=== PATIENT | male | born 1965 | race Caucasian/White ===

== ENCOUNTER 2021-12-19 15:49 | Emergency (ER) | payer SELFPAY ==
[2021-12-19 16:08] VITALS: BP 117/76; PULSE 136; RESP 22; TEMP 36.6; O2SAT 96; BMI 27.4
--- NOTE | 2021-12-19 16:10 | ED.GENADULT ---
HPI - General Adult General Time Seen by Provider: 16:10 <Francisco Enriquez MD - Last Filed: 12/26/21 14:01> Date Seen: 12/19/21 <Francisco Enriquez MD - Last Filed: 12/26/21 14:01> Chief complaint: Weakness <Francisco Enriquez MD - Last Filed: 12/26/21 14:01> Stated complaint: Sore on LT leg and not eating <Francisco Enriquez MD - Last Filed: 12/26/21 14:01> Time Seen by Provider: 12/19/21 16:09 <Francisco Enriquez MD - Last Filed: 12/26/21 14:01> Source: patient <Francisco Enriquez MD - Last Filed: 12/26/21 14:01> History of Present Illness HPI narrative: Flavio is a 56 year old male past medical history includes diabetes mellitus type 2, major depression, CVA with residual left hemiparesis presents emergency department via private car with weakness. Patient states that he has had increased weakness over the last week, he noticed a sore on his left bottom that started 4 days ago, it is tender, nondraining, he has not had any history of MRSA in the past, he has not had anything like this in the past.. Usually gets around with a cane, he did have some vomiting over the last few days, he is able to keep fluids down, but has not been eating much, he denies any fevers, chills myalgias arthralgias, no sick contacts. He lives at home, his kids usually check on him. No U recent falls. Denies any respiratory complaints, chest pain or shortness of breath. Denies any dizziness lightheadedness or headache. Patient is making urine, patient denies any diarrhea or abdominal pain. Patient has no pain at this time, worse with movement or sitting. <Francisco Enriquez MD - Last Filed: 12/26/21 14:01> Related Data Allergies/adverse reactions: Allergies Allergy/AdvReac Type Severity Reaction Status Date / Time aspirin Allergy Verified 12/19/21 16:07 <Francisco Enriquez MD - Last Filed: 12/26/21 14:01> Review of Systems Status of ROS: Reports: 10 or more systems reviewed and unremarkable except as noted in History and below <Francisco Enriquez MD - Last Filed: 12/26/21 14:01> [facility] Social History: Social History Smoking Status: Unknown if ever smoked How often do you have a drink containing alcohol: never AUDIT-C Alcohol total score: 0 Non-prescribed substance use: denies use <Francisco Enriquez MD - Last Filed: 12/26/21 14:01> Exam Narrative: Exam Narrative: General: No obvious distress sitting comfortably HEENT: Pupils equal round reactive to light, extraocular muscles intact Neck: Supple full range of motion Lungs: Clear to auscultation bilaterally Heart: Normal sinus rhythm S1-S2 Abdomen: Soft nontender, bowel sounds present Muscle skeletal: Chronic left-sided hemiparesis Genitourinary: left perineum area, large area of erythema, extending to the scrotum. Tender to palpation, there is induration and fluctuance. No crepitus. Neuro: Alert awake and oriented x3 <Francisco Enriquez MD - Last Filed: 12/26/21 14:01> Const: Vital Signs, click to edit/add: Vital Signs - 24 hr 12/19/21 16:08 12/19/21 19:33 12/19/21 20:34 Temperature 97.8 F Pulse Rate [Pulse Oximeter] 136 H 133 H 133 H Respiratory Rate 22 18 16 Blood Pressure [Ri ght Upper Arm] 117/76 142/98 H Pulse Oximetry 96 94 93 Oxygen Delivery Me thod Room Air Room Air Room Air 12/19/21 20:53 12/19/21 22:42 12/19/21 23:11 Temperature 99.0 F Pulse Rate [Pulse Oximeter] 133 H 133 H Respiratory Rate 16 18 Blood Pressure [Ri ght Upper Arm] 130/87 125/75 Pulse Oximetry 94 97 Oxygen Delivery Me thod Room Air Room Air <Francisco Enriquez MD - Last Filed: 12/26/21 14:01> Vital Signs, click to edit/add: Vital Signs - 24 hr 12/19/21 16:08 12/19/21 19:33 12/19/21 20:34 Temperature 97.8 F Pulse Rate [Pulse Oximeter] 136 H 133 H 133 H Respiratory Rate 22 18 16 Blood Pressure [Ri ght Upper Arm] 117/76 142/98 H Pulse Oximetry 96 94 93 Oxygen Delivery Me thod Room Air Room Air Room Air 12/19/21 20:53 12/19/21 22:42 12/19/21 23:11 Temperature 99.0 F Pulse Rate [Pulse Oximeter] 133 H 133 H Respiratory Rate 16 18 Blood Pressure [Ri ght Upper Arm] 130/87 125/75 Pulse Oximetry 94 97 Oxygen Delivery Me thod Room Air Room Air <Kelsey Zambrano MD - Last Filed: 12/20/21 02:27> Course Course Hospital Course: 4:30 PM: AIDET performed, vitals show tachycardia, no fevers, blood pressure stable, workup will include sepsis order set, will obtain CBC, CRP, CMP, lactate, blood cultures, beta hydroxybutyrate and CT pelvis with IV contrast to see the extent of his perirectal abscess. Will give him 0.9 normal saline bolus. Vitals show tachycardia but otherwise stable, does not meet SIRS criteria. <Francisco Enriquez MD - Last Filed: 12/26/21 14:01> Reevaluation(s) Reevaluation #1: Patient was updated on his imaging and lab results, CBC showed mild leukocytosis with a left shift, lactate was normal, blood cultures pending, blood sugar mildly elevated at 277, normal anion gap, bicarb 17, Ph 7.33, C-reactive protein 24.9, COVID negative beta hydroxybutyrate pending, imaging showed a left gluteal subcutaneous gas tracking along the subcutaneous tissues anteriorly towards the anterior abdominal wall and portions of the scrotal wall as well as extending medially abusing the penile shaft right corpus associated inflammatory stranding. No focal drainable fluid collection. 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 Recommended emergent urological consultation. Per Dr. Gabino Streeter MD. Elysia was also updated on imaging and lab results, there no beds available for transfer to [facility], [facility], [facility], or other institutions at this time, he was given 4.5 g of IV Zosyn for his findings on imaging, 0.5 mg IV Dilaudid for pain, 10 units of regular insulin for his blood sugar. Give him 30cc/kg fluid resuscitation. Will continue to monitor and look for available beds for transfer. <Francisco Enriquez MD - Last Filed: 12/26/21 14:01> Time: 21:20 <Francisco Enriquez MD - Last Filed: 12/26/21 14:01> Reevaluation #2: Still no bed availability, was able to speak with [facility], [facility]. The patient is doing well, pain is been control, vitals show sinus tachycardia, blood pressure has been stable, will continue to monitor. Spoke with Dr. Rodrigez, hyper[facility] medicine, they do not accept patients, admissions with after go through the surgery department. Plan to reach out to surgery. <Francisco Enriquez MD - Last Filed: 12/26/21 14:01> Time: 22:43 <Francisco Enriquez MD - Last Filed: 12/26/21 14:01> Reevaluation #3: Spoke with Dr. Bertin PARKS, will check for bed availability, to await call back. No beds available at this time at [facility], patient was updated. Continue to monitor look for a inpatient bed. <Francisco Enriquez MD - Last Filed: 12/26/21 14:01> Time: 22:56 <Francisco Enriquez MD - Last Filed: 12/26/21 14:01> Consultations Consultation #1: Was able to reach out to [facility], spoke with Urology, recommended to reach out to General surgery based on imaging results to see if they would admit and consult Urology during hospital stay. Do to shift change transfer of care was given to Dr. Kenya PARKS. <Francisco Enriquez MD - Last Filed: 12/26/21 14:01> Time: 12:00 <Francisco Enriquez MD - Last Filed: 12/26/21 14:01> Vital Signs Vital signs: Initial Vital Signs Temperature 97.8 F 12/19/21 16:08 Temperature Source Temporal Artery Scan 12/19/21 16:08 Pulse Rate 136 H 12/19/21 16:08 Pulse Rhythm 12/19/21 16:08 Respiratory Rate 22 12/19/21 16:08 Blood Pressure 117/76 12/19/21 16:08 Blood Pressure Mean 89 12/19/21 16:08 Pulse Oximetry 96 12/19/21 16:08 Oxygen Delivery Method 12/19/21 16:08 Vital Signs Temperature 97.8 F 12/19/21 16:08 Pulse Rate 136 H 12/19/21 16:08 Respiratory Rate 22 12/19/21 16:08 Blood Pressure 117/76 12/19/21 16:08 Pulse Oximetry 96 12/19/21 16:08 Oxygen Delivery Method 12/19/21 16:08 Temperature 99.0 F 12/20/21 00:40 Pulse Rate 131 H 12/20/21 00:40 Respiratory Rate 18 12/20/21 00:40 Blood Pressure 141/66 H 12/20/21 00:40 Pulse Oximetry 96 12/20/21 00:40 Oxygen Delivery Method 12/20/21 00:40 <Francisco Enriquez MD - Last Filed: 12/26/21 14:01> Initial Vital Signs Temperature 97.8 F 12/19/21 16:08 Temperature Source Temporal Artery Scan 12/19/21 16:08 Pulse Rate 136 H 12/19/21 16:08 Pulse Rhythm 12/19/21 16:08 Respiratory Rate 22 12/19/21 16:08 Blood Pressure 117/76 12/19/21 16:08 Blood Pressure Mean 89 12/19/21 16:08 Pulse Oximetry 96 12/19/21 16:08 Oxygen Delivery Method 12/19/21 16:08 Vital Signs Temperature 97.8 F 12/19/21 16:08 Pulse Rate 136 H 12/19/21 16:08 Respiratory Rate 22 12/19/21 16:08 Blood Pressure 117/76 12/19/21 16:08 Pulse Oximetry 96 12/19/21 16:08 Oxygen Delivery Method 12/19/21 16:08 Temperature 99.0 F 12/20/21 00:40 Pulse Rate 131 H 12/20/21 00:40 Respiratory Rate 18 12/20/21 00:40 Blood Pressure 141/66 H 12/20/21 00:40 Pulse Oximetry 96 12/20/21 00:40 Oxygen Delivery Method 12/20/21 00:40 <Kelsey Zambrano MD - Last Filed: 12/20/21 02:27> Medical Decision Making MDM Narrative Medical decision making narrative: I assumed care from Dr. Enriquez at midnight. We had significant difficulty obtaining hospital placement. Patient remains tachycardic in the 120s. He has received appropriate fluid bolus and continues on maintenance fluid. I reviewed his very worrisome CT findings and agree with transfer. We were able to coordinate transfer to the [facility] Emergency Department for suspected foreign years gangrene. Patient has given consent for transfer. I have ordered a 2nd dose of Zosyn, 6 hours from the 1st to be given on route. Patient will be transferred emergently as his condition is deteriorating any is no longer responding appropriately to fluids. His mental status remains alert. He is asking appropriate questions. He denies any new symptoms at the time of my limited exam. Vital signs, laboratory studies, imaging appropriately reviewed for transfer. Accepting physician is Dr. Pablo. <Kelsey Zambrano MD - Last Filed: 12/20/21 02:27> Lab Data Labs: Lab Results 12/19/21 12/19/21 12/19/21 Range/Units 16:22 16:22 17:00 WBC 12.70 H (4.50-11.00) K/uL RBC 5.49 (4.30-5.90) m/uL Hgb 15.5 (13.5-17.5) gm/dL Hct 46.6 (37.0-53.0) % MCV 85 (80-100) fL MCH 28 (26-34) pg MCHC 33 (32-36) gm/dL RDW Coeff of Kenneth 12.8 (11.5-15.5) % Plt Count 196 (140-440) K/uL Neut % (Auto) 84.0 H (42.0-72.0) % Lymph % (Auto) 5.0 L (20-44) % [place] % (Auto) 10.4 (0.0-11.0) % Eos % (Auto) 0.1 (0.0-7.0) % Baso % (Auto) 0.1 (0.0-3.0) % Neut # (Auto) 10.70 H (1.7-7.0) K/uL Lymph # (Auto) 0.60 L (0.90-2.90) K/uL [place] # (Auto) 1.30 H (0.00-0.90) K/UL Eos # (Auto) 0.00 (0.00-0.50) K/uL Baso # (Auto) 0.00 (0.00-0.30) K/uL Abs Immat Gran (auto) 0.05 (0.00-0.30) K/uL VBG pH 7.334 (7.32-7.43) VBG pCO2 37 L (40-50) mmHG VBG pO2 29.7 (25-47) mmHG VBG HCO3 20 L (21-28) mmol/L Sodium (135-149) mmol/L Potassium (3.6-5.1) mmol/L Chloride (96-114) mmol/L Carbon Dioxide (20-32) mmol/L BUN (7-30) mg/dL Creatinine (0.5-1.5) mg/dL Estimated Creat Clear Estimated GFR ml/min Glucose (60-115) mg/dL Lactate (0.5-1.9) mmol/L Calcium (8.4-10.6) mg/dL Total Bilirubin (0.1-1.5) mg/dL AST (12-35) U/L ALT (4-50) U/L Alkaline Phosphatase (40-150) U/L C-Reactive Protein (0.5-1.0) mg/dL Total Protein (6.0-8.3) g/dL Albumin (3.3-5.0) g/dL Beta-Hydroxybutyric Acd (0.0-3.0) mg/dL Urine RBC (0-2) Urine WBC (0-5) Ur Squamous Epith Cells (None-Few) Urine Bacteria (None) Fine Granular Casts (None) SARS-CoV-2 (PCR) Negative SARS-CoV-2 (Negative) 12/19/21 12/19/21 12/19/21 Range/Units 17:00 17:00 17:00 WBC (4.50-11.00) K/uL RBC (4.30-5.90) m/uL Hgb (13.5-17.5) gm/dL Hct (37.0-53.0) % MCV (80-100) fL MCH (26-34) pg MCHC (32-36) gm/dL RDW Coeff of Kenneth (11.5-15.5) % Plt Count (140-440) K/uL Neut % (Auto) (42.0-72.0) % Lymph % (Auto) (20-44) % [place] % (Auto) (0.0-11.0) % Eos % (Auto) (0.0-7.0) % Baso % (Auto) (0.0-3.0) % Neut # (Auto) (1.7-7.0) K/uL Lymph # (Auto) (0.90-2.90) K/uL [place] # (Auto) (0.00-0.90) K/UL Eos # (Auto) (0.00-0.50) K/uL Baso # (Auto) (0.00-0.30) K/uL Abs Immat Gran (auto) (0.00-0.30) K/uL VBG pH (7.32-7.43) VBG pCO2 (40-50) mmHG VBG pO2 (25-47) mmHG VBG HCO3 (21-28) mmol/L Sodium 131 L (135-149) mmol/L Potassium 4.3 (3.6-5.1) mmol/L Chloride 97 (96-114) mmol/L Carbon Dioxide 17 L (20-32) mmol/L BUN 14 (7-30) mg/dL Creatinine 0.8 (0.5-1.5) mg/dL Estimated Creat Clear 90.83 Estimated GFR 103 ml/min Glucose 277 H (60-115) mg/dL Lactate 1.7 (0.5-1.9) mmol/L Calcium 9.3 (8.4-10.6) mg/dL Total Bilirubin 1.0 (0.1-1.5) mg/dL AST 18 (12-35) U/L ALT 31 (4-50) U/L Alkaline Phosphatase 155 H (40-150) U/L C-Reactive Protein 24.9 H (0.5-1.0) mg/dL Total Protein 7.8 (6.0-8.3) g/dL Albumin 4.1 (3.3-5.0) g/dL Beta-Hydroxybutyric Acd 44.0 H (0.0-3.0) mg/dL Urine RBC (0-2) Urine WBC (0-5) Ur Squamous Epith Cells (None-Few) Urine Bacteria (None) Fine Granular Casts (None) SARS-CoV-2 (PCR) (Negative) 12/19/21 Range/Units 17:20 WBC (4.50-11.00) K/uL RBC (4.30-5.90) m/uL Hgb (13.5-17.5) gm/dL Hct (37.0-53.0) % MCV (80-100) fL MCH (26-34) pg MCHC (32-36) gm/dL RDW Coeff of Kenneth (11.5-15.5) % Plt Count (140-440) K/uL Neut % (Auto) (42.0-72.0) % Lymph % (Auto) (20-44) % [place] % (Auto) (0.0-11.0) % Eos % (Auto) (0.0-7.0) % Baso % (Auto) (0.0-3.0) % Neut # (Auto) (1.7-7.0) K/uL Lymph # (Auto) (0.90-2.90) K/uL [place] # (Auto) (0.00-0.90) K/UL Eos # (Auto) (0.00-0.50) K/uL Baso # (Auto) (0.00-0.30) K/uL Abs Immat Gran (auto) (0.00-0.30) K/uL VBG pH (7.32-7.43) VBG pCO2 (40-50) mmHG VBG pO2 (25-47) mmHG VBG HCO3 (21-28) mmol/L Sodium (135-149) mmol/L Potassium (3.6-5.1) mmol/L Chloride (96-114) mmol/L Carbon Dioxide (20-32) mmol/L BUN (7-30) mg/dL Creatinine (0.5-1.5) mg/dL Estimated Creat Clear Estimated GFR ml/min Glucose (60-115) mg/dL Lactate (0.5-1.9) mmol/L Calcium (8.4-10.6) mg/dL Total Bilirubin (0.1-1.5) mg/dL AST (12-35) U/L ALT (4-50) U/L Alkaline Phosphatase (40-150) U/L C-Reactive Protein (0.5-1.0) mg/dL Total Protein (6.0-8.3) g/dL Albumin (3.3-5.0) g/dL Beta-Hydroxybutyric Acd (0.0-3.0) mg/dL Urine RBC 10-25 A (0-2) Urine WBC 0-2 (0-5) Ur Squamous Epith Cells Few (None-Few) Urine Bacteria Few A (None) Fine Granular Casts Few A (None) SARS-CoV-2 (PCR) (Negative) <Francisco Enriquez MD - Last Filed: 12/26/21 14:01> Lab Results 12/19/21 12/19/21 12/19/21 Range/Units 16:22 16:22 17:00 WBC 12.70 H (4.50-11.00) K/uL RBC 5.49 (4.30-5.90) m/uL Hgb 15.5 (13.5-17.5) gm/dL Hct 46.6 (37.0-53.0) % MCV 85 (80-100) fL MCH 28 (26-34) pg MCHC 33 (32-36) gm/dL RDW Coeff of Kenneth 12.8 (11.5-15.5) % Plt Count 196 (140-440) K/uL Neut % (Auto) 84.0 H (42.0-72.0) % Lymph % (Auto) 5.0 L (20-44) % [place] % (Auto) 10.4 (0.0-11.0) % Eos % (Auto) 0.1 (0.0-7.0) % Baso % (Auto) 0.1 (0.0-3.0) % Neut # (Auto) 10.70 H (1.7-7.0) K/uL Lymph # (Auto) 0.60 L (0.90-2.90) K/uL [place] # (Auto) 1.30 H (0.00-0.90) K/UL Eos # (Auto) 0.00 (0.00-0.50) K/uL Baso # (Auto) 0.00 (0.00-0.30) K/uL Abs Immat Gran (auto) 0.05 (0.00-0.30) K/uL VBG pH 7.334 (7.32-7.43) VBG pCO2 37 L (40-50) mmHG VBG pO2 29.7 (25-47) mmHG VBG HCO3 20 L (21-28) mmol/L Sodium (135-149) mmol/L Potassium (3.6-5.1) mmol/L Chloride (96-114) mmol/L Carbon Dioxide (20-32) mmol/L BUN (7-30) mg/dL Creatinine (0.5-1.5) mg/dL Estimated Creat Clear Estimated GFR ml/min Glucose (60-115) mg/dL Lactate (0.5-1.9) mmol/L Calcium (8.4-10.6) mg/dL Total Bilirubin (0.1-1.5) mg/dL AST (12-35) U/L ALT (4-50) U/L Alkaline Phosphatase (40-150) U/L C-Reactive Protein (0.5-1.0) mg/dL Total Protein (6.0-8.3) g/dL Albumin (3.3-5.0) g/dL Beta-Hydroxybutyric Acd (0.0-3.0) mg/dL Urine RBC (0-2) Urine WBC (0-5) Ur Squamous Epith Cells (None-Few) Urine Bacteria (None) Fine Granular Casts (None) SARS-CoV-2 (PCR) Negative SARS-CoV-2 (Negative) 12/19/21 12/19/21 12/19/21 Range/Units 17:00 17:00 17:00 WBC (4.50-11.00) K/uL RBC (4.30-5.90) m/uL Hgb (13.5-17.5) gm/dL Hct (37.0-53.0) % MCV (80-100) fL MCH (26-34) pg MCHC (32-36) gm/dL RDW Coeff of Kenneth (11.5-15.5) % Plt Count (140-440) K/uL Neut % (Auto) (42.0-72.0) % Lymph % (Auto) (20-44) % [place] % (Auto) (0.0-11.0) % Eos % (Auto) (0.0-7.0) % Baso % (Auto) (0.0-3.0) % Neut # (Auto) (1.7-7.0) K/uL Lymph # (Auto) (0.90-2.90) K/uL [place] # (Auto) (0.00-0.90) K/UL Eos # (Auto) (0.00-0.50) K/uL Baso # (Auto) (0.00-0.30) K/uL Abs Immat Gran (auto) (0.00-0.30) K/uL VBG pH (7.32-7.43) VBG pCO2 (40-50) mmHG VBG pO2 (25-47) mmHG VBG HCO3 (21-28) mmol/L Sodium 131 L (135-149) mmol/L Potassium 4.3 (3.6-5.1) mmol/L Chloride 97 (96-114) mmol/L Carbon Dioxide 17 L (20-32) mmol/L BUN 14 (7-30) mg/dL Creatinine 0.8 (0.5-1.5) mg/dL Estimated Creat Clear 90.83 Estimated GFR 103 ml/min Glucose 277 H (60-115) mg/dL Lactate 1.7 (0.5-1.9) mmol/L Calcium 9.3 (8.4-10.6) mg/dL Total Bilirubin 1.0 (0.1-1.5) mg/dL AST 18 (12-35) U/L ALT 31 (4-50) U/L Alkaline Phosphatase 155 H (40-150) U/L C-Reactive Protein 24.9 H (0.5-1.0) mg/dL Total Protein 7.8 (6.0-8.3) g/dL Albumin 4.1 (3.3-5.0) g/dL Beta-Hydroxybutyric Acd 44.0 H (0.0-3.0) mg/dL Urine RBC (0-2) Urine WBC (0-5) Ur Squamous Epith Cells (None-Few) Urine Bacteria (None) Fine Granular Casts (None) SARS-CoV-2 (PCR) (Negative) 12/19/21 Range/Units 17:20 WBC (4.50-11.00) K/uL RBC (4.30-5.90) m/uL Hgb (13.5-17.5) gm/dL Hct (37.0-53.0) % MCV (80-100) fL MCH (26-34) pg MCHC (32-36) gm/dL RDW Coeff of Kenneth (11.5-15.5) % Plt Count (140-440) K/uL Neut % (Auto) (42.0-72.0) % Lymph % (Auto) (20-44) % [place] % (Auto) (0.0-11.0) % Eos % (Auto) (0.0-7.0) % Baso % (Auto) (0.0-3.0) % Neut # (Auto) (1.7-7.0) K/uL Lymph # (Auto) (0.90-2.90) K/uL [place] # (Auto) (0.00-0.90) K/UL Eos # (Auto) (0.00-0.50) K/uL Baso # (Auto) (0.00-0.30) K/uL Abs Immat Gran (auto) (0.00-0.30) K/uL VBG pH (7.32-7.43) VBG pCO2 (40-50) mmHG VBG pO2 (25-47) mmHG VBG HCO3 (21-28) mmol/L Sodium (135-149) mmol/L Potassium (3.6-5.1) mmol/L Chloride (96-114) mmol/L Carbon Dioxide (20-32) mmol/L BUN (7-30) mg/dL Creatinine (0.5-1.5) mg/dL Estimated Creat Clear Estimated GFR ml/min Glucose (60-115) mg/dL Lactate (0.5-1.9) mmol/L Calcium (8.4-10.6) mg/dL Total Bilirubin (0.1-1.5) mg/dL AST (12-35) U/L ALT (4-50) U/L Alkaline Phosphatase (40-150) U/L C-Reactive Protein (0.5-1.0) mg/dL Total Protein (6.0-8.3) g/dL Albumin (3.3-5.0) g/dL Beta-Hydroxybutyric Acd (0.0-3.0) mg/dL Urine RBC 10-25 A (0-2) Urine WBC 0-2 (0-5) Ur Squamous Epith Cells Few (None-Few) Urine Bacteria Few A (None) Fine Granular Casts Few A (None) SARS-CoV-2 (PCR) (Negative) <Kelsey Zambrano MD - Last Filed: 12/20/21 02:27> Discharge Plan Discharge Clinical Impression: Bj gangrene <Francisco Enriquez MD - Last Filed: 12/26/21 14:01> Patient Disposition: [facility] <Francisco Enriquez MD - Last Filed: 12/26/21 14:01> Stand Alone Forms: [facility] <Francisco Enriquez MD - Last Filed: 12/26/21 14:01>
--- NOTE | 2021-12-19 16:24 | CRLHL7_ITS ---
For Patients: As a result of the Century Cures Act, medical imaging exams and procedure reports are released immediately into your electronic medical record. You may view this report before your referring provider. If you have questions, please contact your health care provider. INDICATION: Diabetic, left perirectal abscess TECHNIQUE: CT pelvis acquired with 83 cc Isovue 370 IV contrast. COMPARISON: None. FINDINGS: Lower chest: The visualized lower lungs are aerated. No pleural or pericardial effusion. ABDOMEN: Visualized portions of the abdomen show normal caliber small and large bowel loops. No lymphadenopathy. Normal enhancement of the kidneys where visualized. Patent abdominal aorta and side branches. PELVIS: Genitourinary system: Normal urinary bladder with retained contrast in the collecting system. Normal size prostate. Symmetric seminal vesicles. Left gluteal subcutaneous gas tracking along the subcutaneous tissues anteriorly towards the anterior abdominal wall and portions of the scrotal wall as well as extending medially abutting the penile shaft/right corpus associated inflammatory stranding axial images 83 through 98. No focal drainable fluid collection. SKELETAL STRUCTURES AND SOFT TISSUES: Subcutaneous scrotal edema. No acute osseous process. IMPRESSION: Left gluteal subcutaneous gas tracking along the subcutaneous tissues anteriorly towards the anterior abdominal wall and portions of the scrotal wall as well as extending medially abutting the penile shaft/right corpus associated inflammatory stranding. No focal drainable fluid collection. Constellation of findings are highly concerning for Bj gangrene. Recommend emergent urologic consultation. Findings were verbally communicated with Dr. Armstrong at 6:49 p.m. December 19, 2021. Findings verified by read back. Please note that all CT scans at this facility use dose modulation, iterative reconstruction, and/or weight-based dosing when appropriate to reduce radiation dose to as low as reasonably achievable. Dictated by Gabino Streeter MD @ 12/19/2021 6:53:03 PM (Electronically Signed)
[2021-12-19] MEDS: 0.9 % SODIUM CHLORIDE 1000 ml 1,000 ML IV ×2 (17:06→19:49)
[2021-12-19 17:13] LABS: HCO3 VBG 20 mmol/L (21-28); PCO2 VBG 37 mmHG (40-50); PO2 VBG 29.7 mmHG (25-47); pH VBG 7.334 (7.32-7.43)
[2021-12-19 17:16] LABS: Lactate* 1.7 mmol/L (0.5-1.9)
[2021-12-19 17:20] LABS: Basophils Percent Auto 0.1 % (0.0-3.0); Eosinophils Percent Auto 0.1 % (0.0-7.0); Hematocrit 46.6 % (37.0-53.0); Hemoglobin* 15.5 gm/dL (13.5-17.5); Immature Granulocytes Abs Auto 0.05 K/uL (0.00-0.30); Mean Corpuscular HGB Conc 33 gm/dL (32-36); Mean Corpuscular Hemoglobin 28 pg (26-34); Mean Corpuscular Volume 85 fL (80-100); Monocytes Percent Auto 10.4 % (0.0-11.0); Platelet Count* 196 K/uL (140-440); RDW Coefficient of Variation % 12.8 % (11.5-15.5); Red Blood Count 5.49 m/uL (4.30-5.90); Slide Review Reflex No
[2021-12-19 17:45] LABS: Albumin* 4.1 g/dL (3.3-5.0); Chloride* 97 mmol/L (96-114)
[2021-12-19 17:46] LABS: Potassium* 4.3 mmol/L (3.6-5.1); Sodium* 131 mmol/L (135-149)
[2021-12-19 17:48] LABS: Creatinine* 0.8 mg/dL (0.5-1.5); Est. Creatinine Clearance* 90.83; Estimated Glomerular Filt Rate 103 ml/min
[2021-12-19 17:49] LABS: Alanine Aminotransferase* 31 U/L (4-50); Alkaline Phosphatase* 155 U/L (40-150); Aspartate Amino Transferase* 18 U/L (12-35); Blood Urea Nitrogen* 14 mg/dL (7-30); Calcium* 9.3 mg/dL (8.4-10.6); Carbon Dioxide* 17 mmol/L (20-32); Glucose* 277 mg/dL (60-115); Total Protein* 7.8 g/dL (6.0-8.3)
[2021-12-19 17:51] LABS: Bacteria Urine Few; Squamous Epithelial Cell Urine Few (None-Few); WBC Urine 0-2 (0-5)
[2021-12-19 18:03] LABS: C Reactive Protein* 24.9 mg/dL (0.5-1.0)
[2021-12-19 18:03] LABS: SARS PCR* Negative SARS-CoV-2 (Negative)
[2021-12-19] MEDS: ONDANSETRON 2 MG/ML inj 4 MG IVP (18:33)
--- NOTE | 2021-12-19 18:53 | PC.NURSE ---
pt will call light on c/o of stomach cramping. pt enoucraged to stand up which he did easily. notified.
[2021-12-19] MEDS: HYDROmorphone 0.5 mg/0.5 ml inj IVP (19:21)
[2021-12-19] MEDS: PIPERACILLIN/TAZOBACTAM 4.5 GM in 0.9 % SODIUM CHLORIDE Mini-bag 100 ML IVPB (19:21)
[2021-12-19 19:33] VITALS: BP 142/98; PULSE 133; RESP 18; O2SAT 94
[2021-12-19 20:34] VITALS: PULSE 133; RESP 16; O2SAT 93
[2021-12-19 20:43] LABS: Fine Granular Casts Urine Few
[2021-12-19 20:53] VITALS: BP 130/87
[2021-12-19 22:42] VITALS: PULSE 133; RESP 16; O2SAT 94
[2021-12-19] MEDS: 0.9 % SODIUM CHLORIDE 500 ML 500 ML IV (23:05)
[2021-12-19 23:11] VITALS: BP 125/75; PULSE 133; RESP 18; TEMP 37.2; O2SAT 97
[2021-12-20 00:40] VITALS: BP 141/66; PULSE 131; RESP 18; TEMP 37.2; O2SAT 96
[2021-12-20] MEDS: 0.9 % SODIUM CHLORIDE 1000 ml 1,000 ML 125 ML IV (00:43)
[2021-12-20] MEDS: HYDROmorphone 0.5 mg/0.5 ml inj IVP (00:44)
[2021-12-20] MEDS: ONDANSETRON 2 MG/ML inj 4 MG IVP (00:44)
[2021-12-20] MEDS: PIPERACILLIN/TAZOBACTAM 4.5 GM in 0.9 % SODIUM CHLORIDE Mini-bag 100 ML IVPB (01:16)
--- NOTE | 2021-12-20 01:21 | ED.NURSE ---
Pt daughter in law Elysia updated re transfer to [facility]
== END 2021-12-20 01:19 | disposition home or self-care (01) ==
PROVIDERS: Student in an Organized Health Care Education/Training Program; Emergency Provider Family Medicine
DX: N49.3 Fournier gangrene (principal)
CPT/HCPCS: 36415; 72193; 80053; 81015; 82010; 82803; 82962; 83605; 85025; 86140; 87040; 87086; 87635; 96365; 96366; 96375; 96376; 99283; 99285; J1170; J2405; J2543; J7030; J7120; Q9967

== ENCOUNTER 2021-12-20 01:08 | Outpatient (CLI) | payer SELFPAY | END 2021-12-20 01:09 | disposition home or self-care (01) | PROVIDERS: Visit Provider Family Medicine | DX: R10.2 Pelvic and perineal pain (principal) | CPT/HCPCS: A0425; A0434 ==

== ENCOUNTER 2022-02-05 13:01 | Outpatient (CLI) | payer MEDICARE, SELFPAY | END 2022-02-05 13:02 | disposition home or self-care (01) | LOC: WOUND 13:04 | PROVIDERS: PCP Family Medicine; Visit Provider Surgery | DX: S71.102A Unspecified open wound, left thigh, initial encounter (principal); E11.65 Type 2 diabetes mellitus with hyperglycemia; Z79.4 Long term (current) use of insulin; I69.354 Hemiplegia and hemiparesis following cerebral infarction affecting left non-dominant side; Z72.0 Tobacco use | CPT/HCPCS: 99213 ==

== ENCOUNTER 2022-02-12 13:10 | Outpatient (CLI) | payer MEDICARE, SELFPAY | END 2022-02-12 13:11 | disposition home or self-care (01) | LOC: WOUND 13:10 | PROVIDERS: PCP Family Medicine; Visit Provider Surgery | DX: S71.102A Unspecified open wound, left thigh, initial encounter (principal); E11.65 Type 2 diabetes mellitus with hyperglycemia; Z79.4 Long term (current) use of insulin; I69.354 Hemiplegia and hemiparesis following cerebral infarction affecting left non-dominant side; Z72.0 Tobacco use | CPT/HCPCS: 11042 ==

== ENCOUNTER 2022-03-05 13:21 | Outpatient (CLI) | payer MEDICARE, SELFPAY | END 2022-03-05 13:22 | disposition home or self-care (01) | LOC: WOUND 13:21 | PROVIDERS: PCP Family Medicine; Visit Provider Surgery | DX: S71.102A Unspecified open wound, left thigh, initial encounter (principal); E11.65 Type 2 diabetes mellitus with hyperglycemia; I69.354 Hemiplegia and hemiparesis following cerebral infarction affecting left non-dominant side; Z79.4 Long term (current) use of insulin; Z72.0 Tobacco use | CPT/HCPCS: 17250 ==

== ENCOUNTER 2022-03-12 13:04 | Outpatient (CLI) | payer MEDICARE, SELFPAY | END 2022-03-12 13:05 | disposition home or self-care (01) | LOC: WOUND 13:05 | PROVIDERS: PCP Family Medicine; Visit Provider Surgery | DX: S71.102A Unspecified open wound, left thigh, initial encounter (principal); E11.65 Type 2 diabetes mellitus with hyperglycemia; Z79.4 Long term (current) use of insulin | CPT/HCPCS: 99213 ==

== ENCOUNTER 2022-04-28 18:53 | Emergency (ER) | payer SELFPAY ==
[2022-04-28 18:56] VITALS: BP 125/80; PULSE 94; RESP 16; TEMP 36.1; O2SAT 96; BMI 26.6
--- NOTE | 2022-04-28 19:21 | CRLHL7_ITS ---
For Patients: As a result of the Century Cures Act, medical imaging exams and procedure reports are released immediately into your electronic medical record. You may view this report before your referring provider. If you have questions, please contact your health care provider. INDICATION: Status post fall. Pain. COMPARISON: None available. TECHNIQUE: CT examination of the cervical spine is performed without contrast using spiral technique. 1.5 mm thick axial, sagittal and coronal reconstructions were made. Please note that all CT scans at this facility use dose modulation, iterative reconstruction, and/or weight-based dosing when appropriate to reduce radiation dose to as low as reasonably achievable. FINDINGS: : There is no sign of fracture or subluxation. The cervical vertebral bodies are normal in height and are in anatomic alignment. There is mild anterior wedging of the T1 vertebral body with a mild superior T1 endplate depression, findings of a mild compression fracture and superior endplate fracture. These are of indeterminate age. There is no paraspinous soft tissue swelling to suggest that this is an acute compression fracture. There is no sign of prevertebral soft tissue swelling. There is moderate diffuse C6-7 disc bulging with posterior osteophytic ridging, which may impinge upon the anterior cervical cord. There is mild bilateral foraminal stenosis from uncovertebral joint hypertrophy. There is mild C6-7 disc degenerative disease. There is mild C3-4 disc degenerative disease with mild diffuse disc bulging. There is moderate bilateral foraminal stenosis from uncovertebral joint hypertrophy. The rest of the intervertebral discs are normal in height. The airway structures are normal in appearance. The visualized skull base is normal in appearance. The visualized inferior brain is normal in appearance for the patient`s age. Incidental note is made of a large, partially calcified granuloma in the right apex. The bases of the lungs are otherwise clear. IMPRESSION: Mild compression fracture and mild superior endplate fracture of T1 of indeterminate age. Recommend correlation with the clinical exam. No sign of acute osseous injury to the cervical spine itself. Moderate diffuse C6-7 disc bulge and posterior osteophytic ridging which may come in contact with the anterior cervical cord. Mild C3-4 disc degenerative disease with minimal diffuse C3-4 disc bulging. Please note that all CT scans at this facility use dose modulation, iterative reconstruction, and/or weight-based dosing when appropriate to reduce radiation dose to as low as reasonably achievable. Dictated by Hadyen Munroe MD @ 04/28/2022 8:57:47 PM (Electronically Signed)
--- NOTE | 2022-04-28 19:23 | ED_ITS ---
HPI - General Adult General Time Seen by Provider: 19:23 Date Seen: 04/28/22 Chief complaint: Fall/Minor Trauma Stated complaint: fell down stairs hit head, neck is in pain Time Seen by Provider: 04/28/22 19:06 Source: patient Mode of arrival: ambulatory Limitations: no limitations History of Present Illness HPI narrative: Patient is a 48 year white male has had multiple medical problems and was unfortunately at the top of his 7 steps stairs and lost balance and fell down he developed some neck pain subsequently. He describes it as when he turns his neck side to side he does not have any vertical discomfort or with flexion. He does not describe any radicular symptoms, no inability to move as per typical he has had a stroke in the past by history as well as heart disease. He denies a headache denies any loss of consciousness or head pain. Related Data Home Medications Medication Instructions Recorded Confirmed atorvastatin 40 mg tablet 40 mg PO HS 04/28/22 04/28/22 carvedilol 12.5 mg tablet 12.5 mg PO DAILY 04/28/22 04/28/22 clopidogrel 75 mg tablet 75 mg PO DAILY 04/28/22 04/28/22 divalproex 500 mg tablet,delayed 500 mg PO Q12H 04/28/22 04/28/22 release fluoxetine 20 mg tablet 20 mg PO DAILY 04/28/22 04/28/22 losartan 25 mg tablet 25 mg PO DAILY 04/28/22 04/28/22 metformin 500 mg tablet,extended 1,000 mg PO BID 04/28/22 04/28/22 release 24 hr mirtazapine 15 mg tablet 15 mg PO HS 04/28/22 04/28/22 pregabalin 300 mg capsule 300 mg PO Q12H 04/28/22 04/28/22 tamsulosin 0.4 mg capsule 0.4 mg PO Q24H 04/28/22 04/28/22 Allergies Allergy/AdvReac Type Severity Reaction Status Date / Time aspirin Allergy Verified 04/28/22 19:02 Review of Systems Status of ROS: Reports: 10 or more systems reviewed and unremarkable except as noted in History and below PFSH PFSH Social History Smoking Status: Current every day smoker What tobacco products do you use: cigarettes Smoking packs per day: 0.5 Smoking cigarettes per day: 10.0 Years smoked: 49 Smoking pack-years: 24.50 Do you use any of these nicotine containing products: None Second hand tobacco smoke exposure: No How often do you have a drink containing alcohol: never How often do you have six or more drinks on one occasion: Never AUDIT-C Alcohol total score: 0 Non-prescribed substance use: denies use service: No Exam Narrative: Exam Narrative: Objective vital signs unremarkable HEENT is unremarkable he actually has fairly full range of motion his neck no midline tenderness mild tenderness in his right trapezius muscle area Neurologic is shows able to sit up, he moves his extremities, he has no back pain, denies any peripheral symptoms Const: Vital Signs, click to edit/add: Vital Signs - 24 hr 04/28/22 18:56 04/28/22 19:55 Temperature 97.0 F L Pulse Rate [Right Pulse Oximeter] 94 85 Respiratory Rate 16 18 Blood Pressure [Ri ght Upper Arm] 125/80 105/73 Pulse Oximetry 96 95 Oxygen Delivery Me thod Room Air Room Air Course Vital Signs Vital signs: Initial Vital Signs Temperature 97.0 F L 04/28/22 18:56 Temperature Source Temporal Artery Scan 04/28/22 18:56 Pulse Rate 94 04/28/22 18:56 Respiratory Rate 16 04/28/22 18:56 Blood Pressure 125/80 04/28/22 18:56 Blood Pressure Mean 95 04/28/22 18:56 Blood Pressure Position Sitting 04/28/22 18:56 Pulse Oximetry 96 04/28/22 18:56 Oxygen Delivery Method 04/28/22 18:56 Vital Signs Temperature 97.0 F L 04/28/22 18:56 Pulse Rate 94 04/28/22 18:56 Respiratory Rate 16 04/28/22 18:56 Blood Pressure 125/80 04/28/22 18:56 Pulse Oximetry 96 04/28/22 18:56 Oxygen Delivery Method 04/28/22 18:56 Temperature 97.0 F L 04/28/22 18:56 Pulse Rate 85 04/28/22 19:55 Respiratory Rate 18 04/28/22 19:55 Blood Pressure 105/73 04/28/22 19:55 Pulse Oximetry 95 04/28/22 19:55 Oxygen Delivery Method 04/28/22 19:55 Medical Decision Making MDM Narrative Medical decision making narrative: Patient slipped and fell down his stairs, he really feels only neck pain, no other neurologic changes. I think he has got cervical strap muscle strain, but I think a CT scan of his neck would be appropriate. He has got no other focal neurologic changes from baseline. Disposition pending the CT scan of the neck. Addendum: Patient has an old T1 compression fracture, no retropulsed fragments, he has no neurologic compromise. His discomfort is really in his cervical strap muscles and not in his thoracic spine area. I think we can long to go home rest light activity Tylenol Advil as needed update regular doctor next few days. Further workup and imaging if not resolving or continued symptoms. He has were comfortable plan will follow up as directed. Discharge Plan Discharge Clinical Impression: Cervical strain, Fall Patient Disposition: Home w/ Parent or Adult Condition: Stable Additional Instructions: Ice, Tylenol, Advil as needed, update regular doctor in the next few days with symptoms, if any problems or concerns return to the ED. Activity Level: Light activity Discharge Diet: Regular Prescriptions: No Action carvedilol 12.5 mg tablet 12.5 mg PO DAILY metformin 500 mg tablet extended release 24 hr 1,000 mg PO BID divalproex 500 mg tablet,delayed release (DR/EC) 500 mg PO Q12H fluoxetine 20 mg tablet 20 mg PO DAILY clopidogrel 75 mg tablet 75 mg PO DAILY atorvastatin 40 mg tablet 40 mg PO HS mirtazapine 15 mg tablet 15 mg PO HS pregabalin 300 mg capsule 300 mg PO Q12H losartan 25 mg tablet 25 mg PO DAILY tamsulosin 0.4 mg capsule 0.4 mg PO Q24H Follow Up/Referrals: Lincoln Hanna DO [Referring] - Stand Alone [facility]
[2022-04-28 19:55] VITALS: BP 105/73; PULSE 85; RESP 18; O2SAT 95
--- NOTE | 2022-04-28 20:25 | ED.NURSE ---
has been alert and appropriate. watching wrestling on the tv. has had ct scan. is at bs. is very loving and concerned.
== END 2022-04-28 21:12 | disposition home or self-care (01) ==
PROVIDERS: Emergency Provider Family Medicine
DX: S16.1XXA Strain of muscle, fascia and tendon at neck level, initial encounter (principal); W10.9XXA Fall (on) (from) unspecified stairs and steps, initial encounter
CPT/HCPCS: 72125; 99283; 99284

== ENCOUNTER 2022-07-08 14:22 | Emergency (ER) | payer OTHER, SELFPAY ==
[2022-07-08] VITALS (9 sets, daily range): BP systolic 115–152; BP diastolic 77–89; PULSE 88–102; RESP 18; TEMP 36.8; O2SAT 95–98; BMI 27.9
--- NOTE | 2022-07-08 14:36 | CRLHL7_ITS ---
For Patients: As a result of the Century Cures Act, medical imaging exams and procedure reports are released immediately into your electronic medical record. You may view this report before your referring provider. If you have questions, please contact your health care provider. CT ANGIOGRAM NECK DATE: 07/08/2022 CLINICAL HISTORY: Patient with focal neurological deficits. TECHNIQUE: Standard helical CT image acquisition of the neck up to the skull base after bolus intravenous contrast enhancement. Multiplanar reconstructed images performed on a separate workstation. COMPARISON: CT same day. FINDINGS: The origins of the great vessels from the aortic arch are patent. The origin of the right vertebral artery is patent. The origin of the left vertebral artery is patent. The common carotid arteries are patent. There is no stenosis at the origin of the right internal carotid artery. There is plaque without stenosis at the origin of the left internal carotid artery. The rest of the cervical segments of the internal carotid arteries are patent up to the skull base. The vertebral arteries are codominant. The cervical segments of the vertebral arteries are patent up to the skull base. The visualized intracranial vasculature is unremarkable. The visualized lung apices are unremarkable. The thyroid gland is unremarkable. The soft tissues of the neck are unremarkable. There are degenerative changes in the cervical spine. IMPRESSION: Patent cervical vasculature. Please note that all CT scans at this facility use dose modulation, iterative reconstruction, and/or weight-based dosing when appropriate to reduce radiation dose to as low as reasonably achievable. Dictated by: Arash Herrera MD @ 07/08/2022 15:23:21 (Electronically Signed)
--- NOTE | 2022-07-08 14:36 | CRLHL7_ITS ---
For Patients: As a result of the Cures Act, medical imaging exams and procedure reports are released immediately into your electronic medical record. You may view this report before your referring provider. If you have questions, please contact your health care provider. CT HEAD DATE: 07/08/2022 CLINICAL HISTORY: Patient with focal neurological deficits. TECHNIQUE: Standard CT scanning of the head was performed. COMPARISON: MRI 03/29/2020. FINDINGS: There is no intracranial hemorrhage. There are moderate old right frontal lobe infarction and small left superior cerebellar infarction. There are moderate microangiopathic changes. There is diffuse parenchymal volume loss. There is no mass effect or midline shift. The calvarium is unremarkable. The orbits are unremarkable. The paranasal sinuses are unremarkable. The mastoid air cells are unremarkable. The soft tissues are unremarkable. IMPRESSION: 1. No intracranial hemorrhage. 2. Moderate old right frontal lobe infarction and small left superior cerebellar infarction. 3. Moderate microangiopathic changes and diffuse parenchymal volume loss. Please note that all CT scans at this facility use dose modulation, iterative reconstruction, and/or weight-based dosing when appropriate to reduce radiation dose to as low as reasonably achievable. Dictated by: Arash Herrera MD @ 07/08/2022 15:20:39 (Electronically Signed)
--- NOTE | 2022-07-08 14:36 | CRLHL7_ITS ---
For Patients: As a result of the Cures Act, medical imaging exams and procedure reports are released immediately into your electronic medical record. You may view this report before your referring provider. If you have questions, please contact your health care provider. CT ANGIOGRAM HEAD DATE: 07/08/2022 CLINICAL HISTORY: Patient with focal neurological deficits. TECHNIQUE: Standard helical CT image acquisition through the intracranial circulation following intravenous administration of contrast material with bolus tracking. Multiplanar reconstructed images were performed and interpreted. COMPARISON: CT same day. FINDINGS: Images are degraded by patient motion. There is no large cerebral aneurysm or large vessel occlusion. The visualized venous structures are patent. IMPRESSION: Images are degraded by patient motion. No large cerebral aneurysm or large vessel occlusion. Please note that all CT scans at this facility use dose modulation, iterative reconstruction, and/or weight-based dosing when appropriate to reduce radiation dose to as low as reasonably achievable. Dictated by: Arash Herrera MD @ 07/08/2022 15:32:41 (Electronically Signed)
--- NOTE | 2022-07-08 14:39 | ED_ITS ---
HPI - General Adult General Time Seen by Provider: 14:39 Date Seen: 07/08/22 Chief complaint: Weakness Stated complaint: Possible stroke--slurring words, L side numb Time Seen by Provider: 07/08/22 14:26 Source: patient Mode of arrival: ambulatory Limitations: no limitations History of Present Illness HPI narrative: Patient is a 48 year white male with a history of what sounds like ischemic cardiomyopathy, history of prior right-sided stroke giving him residual left arm and leg weakness, who presents with some concern about his speech this morning as well as he has been ?tripping? more than he has in the past. He reports that his arm and leg ir traditionally little weak his left left arm is affected apparently more more than his left leg. Patient is an insulin-dependent diabetic he is on Plavix and has not missed any medications or dosages. He also reports that he has had no chest pain shortness of breath fever chills cough. No leg swelling or edema. Related Data Home Medications Medication Instructions Recorded Confirmed atorvastatin 40 mg tablet 40 mg PO HS 04/28/22 04/28/22 carvedilol 12.5 mg tablet 12.5 mg PO DAILY 04/28/22 04/28/22 clopidogrel 75 mg tablet 75 mg PO DAILY 04/28/22 04/28/22 divalproex 500 mg tablet,delayed 500 mg PO Q12H 04/28/22 04/28/22 release fluoxetine 20 mg tablet 20 mg PO DAILY 04/28/22 04/28/22 losartan 25 mg tablet 25 mg PO DAILY 04/28/22 04/28/22 metformin 500 mg tablet,extended 1,000 mg PO BID 04/28/22 04/28/22 release 24 hr mirtazapine 15 mg tablet 15 mg PO HS 04/28/22 04/28/22 pregabalin 300 mg capsule 300 mg PO Q12H 04/28/22 04/28/22 tamsulosin 0.4 mg capsule 0.4 mg PO Q24H 04/28/22 04/28/22 Allergies Allergy/AdvReac Type Severity Reaction Status Date / Time aspirin Allergy Verified 04/28/22 19:02 Review of Systems Status of ROS: Reports: 6 or more systems reviewed and unremarkable except as noted in History and below PFSH PFSH Social History Smoking Status: Current every day smoker What tobacco products do you use: cigarettes Smoking packs per day: 0.5 Smoking cigarettes per day: 10.0 Years smoked: 49 Smoking pack-years: 24.50 Do you use any of these nicotine containing products: None Second hand tobacco smoke exposure: No How often do you have a drink containing alcohol: never How often do you have six or more drinks on one occasion: Never AUDIT-C Alcohol total score: 0 Non-prescribed substance use: denies use service: No Exam Narrative: Exam Narrative: Objective: In general patient is no apparent distress resting comfortably ambulates without difficulty, no cyanosis Vital signs show slightly elevated blood pressure HEENT shows no facial asymmetry mouth clear tongue protrudes midline neck is supple Chest is clear Heart rhythm regular without murmur Abdomen benign soft nontender Extremities are no edema, the patient does have some slight contracture of his left hand and little bit of his read weakness is unable to really lift his left arm he reports this is chronic, he only detect slight amount of weakness in flexion extension of his foot on the left but this is minimal. Good peripheral perfusion noted Const: Vital Signs, click to edit/add: Vital Signs - 24 hr 07/08/22 14:25 07/08/22 15:10 07/08/22 15:06 Temperature 98.2 F Pulse Rate 94 Pulse Rate [Right Pulse Oximeter] 102 H Respiratory Rate 18 Blood Pressure Blood Pressure [Ri ght Upper Arm] 152/89 H Pulse Oximetry 98 96 96 Oxygen Delivery Me thod Room Air 07/08/22 15:09 07/08/22 15:15 07/08/22 15:30 Temperature Pulse Rate 94 91 89 Pulse Rate [Right Pulse Oximeter] Respiratory Rate Blood Pressure 123/77 Blood Pressure [Ri ght Upper Arm] Pulse Oximetry 97 97 97 Oxygen Delivery Me thod 07/08/22 15:31 07/08/22 16:01 07/08/22 16:31 Temperature Pulse Rate 88 Pulse Rate [Right Pulse Oximeter] Respiratory Rate Blood Pressure 115/81 120/86 130/89 Blood Pressure [Ri ght Upper Arm] Pulse Oximetry 95 Oxygen Delivery Me thod Course Vital Signs Vital signs: Initial Vital Signs Temperature 98.2 F 07/08/22 14:25 Temperature Source Temporal Artery Scan 07/08/22 14:25 Pulse Rate 102 H 07/08/22 14:25 Respiratory Rate 18 07/08/22 14:25 Blood Pressure 152/89 H 07/08/22 14:25 Blood Pressure Mean 110 07/08/22 14:25 Blood Pressure Position Sitting 07/08/22 14:25 Pulse Oximetry 98 07/08/22 14:25 Oxygen Delivery Method Room Air 07/08/22 14:25 Vital Signs Temperature 98.2 F 07/08/22 14:25 Pulse Rate 102 H 07/08/22 14:25 Respiratory Rate 18 07/08/22 14:25 Blood Pressure 152/89 H 07/08/22 14:25 Pulse Oximetry 98 07/08/22 14:25 Oxygen Delivery Method Room Air 07/08/22 14:25 Temperature 98.2 F 07/08/22 14:25 Pulse Rate 88 07/08/22 15:31 Respiratory Rate 18 07/08/22 14:25 Blood Pressure 130/89 07/08/22 16:31 Pulse Oximetry 95 07/08/22 15:31 Oxygen Delivery Method Room Air 07/08/22 14:25 Medical Decision Making [facility] Narrative Medical decision making narrative: [age] year white male smoker with diabetes and ischemic cardiomyopathy presents with concern about his speech today although now it appears normal, he also cut was concer that he is tripping more than normal. He presents to the ED for assessment. Denies headache denies fever, chills or shortness of breath or chest pain. I think it be reasonable to do a head CT CTA of his head neck, EKG, laboratory studies, IV fluid, hemodynamic monitoring. Disposition pending findings above rule out new acute stroke. Addendum: The patient's lab studies look reassuring, with exception of his glucose is 366 his INR and coags look unremarkable sodium potassium and creatinine are normal his troponin is less than 0.01 alcohol level is negative COVID influenza RSV is negative. The patient had a CT scan of his head, that was largely unremarkable in his old right look frontal lobe infarction left superior cerebellar infarction, he has no significant vascular obstruction. His lab studies look fairly reassuring. His sugars elevated 366 no get 5 units subcu insulin. Recommend careful sugar monitoring and follow-up with primary care in the next couple of days certainly sooner change concerns worsening continue his present medication. Lab Data Labs: Lab Results 07/08/22 07/08/22 Range/Units 14:45 14:50 WBC 7.46 (4.50-11.00) K/uL RBC 5.21 (4.30-5.90) m/uL Hgb 15.4 (13.5-17.5) gm/dL Hct 45.6 (37.0-53.0) % MCV 88 (80-100) fL MCH 30 (26-34) pg MCHC 34 (32-36) gm/dL RDW Coeff of Kenneth 13.1 (11.5-15.5) % Plt Count 213 (140-440) K/uL Neut % (Auto) 57.1 (42.0-72.0) % Lymph % (Auto) 31.1 (20-44) % [place] % (Auto) 7.6 (0.0-11.0) % Eos % (Auto) 3.4 (0.0-7.0) % Baso % (Auto) 0.3 (0.0-3.0) % Neut # (Auto) 4.26 (1.7-7.0) K/uL Lymph # (Auto) 2.32 (0.90-2.90) K/uL [place] # (Auto) 0.60 (0.00-0.90) K/UL Eos # (Auto) 0.25 (0.00-0.50) K/uL Baso # (Auto) 0.02 (0.00-0.30) K/uL INR 0.86 L (0.91-1.10) APTT 29 (23-33) Seconds Sodium 136 (135-149) mmol/L Potassium 4.1 (3.6-5.1) mmol/L Chloride 105 (96-114) mmol/L Carbon Dioxide 23 (20-32) mmol/L BUN 15 (7-30) mg/dL Creatinine 0.7 (0.5-1.5) mg/dL Estimated Creat Clear 103.80 Estimated GFR 107 ml/min Glucose 366 H* (60-115) mg/dL Calcium 8.9 (8.4-10.6) mg/dL Total Bilirubin 0.3 (0.1-1.5) mg/dL Direct Bilirubin 0.2 (0.0-0.5) mg/dL AST 22 (12-35) U/L ALT 26 (4-50) U/L Alkaline Phosphatase 99 (40-150) U/L Troponin I < 0.01 L (0.01-0.04) ng/mL C-Reactive Protein 0.7 (0.5-1.0) mg/dL Total Protein 6.9 (6.0-8.3) g/dL Albumin 4.0 (3.3-5.0) g/dL Ethyl Alcohol < 0.01 L (0.01-0.03) % SARS-CoV-2 (PCR) Negative SARS-CoV-2 (Negative) Influenza Type A (PCR) Negative PCR FLU A (Negative) Influenza Type B (PCR) Negative PCR FLU B (Negative) RSV (PCR) Negative PCR RSV (Negative) Discharge Plan Discharge Clinical Impression: History of stroke, Diabetes Patient Disposition: Home w/ Parent or Adult Condition: Stable Additional Instructions: Continue home meds, stop smoking, careful diabetic control, follow-up with primary care in the next 2-3 days. Return to ED sooner problems concerns difficulty light activity recommended Activity Level: Light activity Discharge Diet: Diabetic Prescriptions: No Action carvedilol 12.5 mg tablet 12.5 mg PO DAILY metformin 500 mg tablet extended release 24 hr 1,000 mg PO BID divalproex 500 mg tablet,delayed release (DR/EC) 500 mg PO Q12H fluoxetine 20 mg tablet 20 mg PO DAILY clopidogrel 75 mg tablet 75 mg PO DAILY atorvastatin 40 mg tablet 40 mg PO HS mirtazapine 15 mg tablet 15 mg PO HS pregabalin 300 mg capsule 300 mg PO Q12H losartan 25 mg tablet 25 mg PO DAILY tamsulosin 0.4 mg capsule 0.4 mg PO Q24H Follow Up/Referrals: Provider,Not a Local [Primary Care Provider] - Stand Alone Forms: [facility] Info Instructions
[2022-07-08] MEDS: 0.9 % SODIUM CHLORIDE 500 ML 500 ML IV (15:08)
[2022-07-08 15:30] LABS: INR 0.86 (0.91-1.10); Prothrombin Time 12.3 Seconds
[2022-07-08 15:31] LABS: Partial Thromboplastin Time* 29 Seconds (23-33)
[2022-07-08 15:44] LABS: PCR FLU A Negative PCR FLU A (Negative); PCR FLU B Negative PCR FLU B (Negative); PCR RSV Negative PCR RSV (Negative); SARS PCR* Negative SARS-CoV-2 (Negative)
[2022-07-08 15:54] LABS: Chloride* 105 mmol/L (96-114)
[2022-07-08 15:55] LABS: Potassium* 4.1 mmol/L (3.6-5.1); Sodium* 136 mmol/L (135-149); Troponin I* < 0.01 ng/mL (0.01-0.04)
[2022-07-08 15:57] LABS: Creatinine* 0.7 mg/dL (0.5-1.5); Estimated Glomerular Filt Rate 107 ml/min
[2022-07-08 15:58] LABS: Alanine Aminotransferase* 26 U/L (4-50); Alkaline Phosphatase* 99 U/L (40-150); Aspartate Amino Transferase* 22 U/L (12-35); Bilirubin Direct* 0.2 mg/dL (0.0-0.5); Bilirubin Total* 0.3 mg/dL (0.1-1.5); Blood Urea Nitrogen* 15 mg/dL (7-30); Calcium* 8.9 mg/dL (8.4-10.6); Carbon Dioxide* 23 mmol/L (20-32); Total Protein* 6.9 g/dL (6.0-8.3)
[2022-07-08 16:00] LABS: C Reactive Protein* 0.7 mg/dL (0.5-1.0)
[2022-07-08 16:02] LABS: Ethanol* < 0.01 % (0.01-0.03); Glucose* 366 mg/dL (60-115)
[2022-07-08 16:21] LABS: Basophils Absolute Auto 0.02 K/uL (0.00-0.30); Basophils Percent Auto 0.3 % (0.0-3.0); Eosinophils Absolute Auto 0.25 K/uL (0.00-0.50); Eosinophils Percent Auto 3.4 % (0.0-7.0); Hematocrit 45.6 % (37.0-53.0); Hemoglobin* 15.4 gm/dL (13.5-17.5); Immature Granulocytes Abs Auto 0.04 K/uL (0.00-0.30); Immature Granulocytes Pct Auto 0.5 %; Lymphocytes Absolute Auto 2.32 K/uL (0.90-2.90); Lymphocytes Percent Auto 31.1 % (20-44); Mean Corpuscular HGB Conc 34 gm/dL (32-36); Mean Corpuscular Hemoglobin 30 pg (26-34); Mean Corpuscular Volume 88 fL (80-100); Monocytes Percent Auto 7.6 % (0.0-11.0); Neutrophils Absolute Auto 4.26 K/uL (1.7-7.0); Neutrophils Percent Auto 57.1 % (42.0-72.0); Platelet Count* 213 K/uL (140-440); RDW Coefficient of Variation % 13.1 % (11.5-15.5); Red Blood Count 5.21 m/uL (4.30-5.90); White Blood Count* 7.46 K/uL (4.50-11.00)
[2022-07-08 16:32] LABS: Slide Review Reflex No
== END 2022-07-08 16:42 | disposition home or self-care (01) ==
LOC: ED 15:29
PROVIDERS: Emergency Provider Family Medicine
DX: E11.65 Type 2 diabetes mellitus with hyperglycemia (principal)
CPT/HCPCS: 36415; 70450; 70496; 70498; 80048; 80076; 82077; 84484; 85025; 85610; 85730; 86140; 87631; 93005; 94761; 99284; 99285; J7120; Q9967

== ENCOUNTER 2022-10-01 06:12 | Outpatient (CLI) | payer OTHER, SELFPAY | END 2022-10-01 06:13 | disposition home or self-care (01) | LOC: AMB 10-07 10:14 | PROVIDERS: Visit Provider Family Medicine | DX: E11.649 Type 2 diabetes mellitus with hypoglycemia without coma (principal) | CPT/HCPCS: A0998 ==

== ENCOUNTER 2023-01-30 18:46 | Emergency (ER) | payer MEDICARE, SELFPAY ==
[2023-01-30 19:11] VITALS: BP 124/79; PULSE 99; RESP 16; TEMP 36.6; O2SAT 96
--- NOTE | 2023-01-30 20:57 | CRLHL7_ITS ---
For Patients: As a result of the Century Cures Act, medical imaging exams and procedure reports are released immediately into your electronic medical record. You may view this report before your referring provider. If you have questions, please contact your health care provider. INDICATION: Pain TECHNIQUE: Lumbar spine 2 view. COMPARISON: None FINDINGS: Bones: Alignment is normal. No fractures or significant bone lesions. Joints: Mild multilevel degenerative disc and facet changes. Soft tissues: Surgical clips in the right upper quadrant. IMPRESSION: No acute abnormality. Dictated by Chelsey Dudley MD @ 01/30/2023 10:24:33 PM (Electronically Signed)
--- NOTE | 2023-01-30 20:57 | CRLHL7_ITS ---
For Patients: As a result of the Century Cures Act, medical imaging exams and procedure reports are released immediately into your electronic medical record. You may view this report before your referring provider. If you have questions, please contact your health care provider. Indication: Pain Technique: Three views left ankle Comparison: None Findings: Bones: Alignment is normal. No fractures or bone lesions. Joint spaces: Unremarkable. Soft tissues: Unremarkable. Impression: Negative. Dictated by Chelsey Dudley MD @ 01/30/2023 10:25:34 PM (Electronically Signed)
--- NOTE | 2023-01-30 21:01 | ED_ITS ---
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 Patient has pain in his lumbar spine without radiation. He has no thoracic pain. He did not fall. He did not hit his head he did not lose consciousness he had no palpitations. Patient is a mild discomfort with weight-bearing which he has been experiencing walking arou nd the whole last 24 hours. He has had mild bruising but no skin breakdown no major ecchymosis. Patient is otherwise at his baseline. He is concerned as his ankle and back are still hurting. Related Data Home Medications Medication Instructions Recorded Confirmed atorvastatin 40 mg tablet 40 mg PO HS 04/28/22 04/28/22 carvedilol 12.5 mg tablet 12.5 mg PO DAILY 04/28/22 04/28/22 clopidogrel 75 mg tablet 75 mg PO DAILY 04/28/22 04/28/22 divalproex 500 mg tablet,delayed 500 mg PO Q12H 04/28/22 04/28/22 release fluoxetine 20 mg tablet 20 mg PO DAILY 04/28/22 04/28/22 losartan 25 mg tablet 25 mg PO DAILY 04/28/22 04/28/22 metformin 500 mg tablet,extended 1,000 mg PO BID 04/28/22 04/28/22 release 24 hr mirtazapine 15 mg tablet 15 mg PO HS 04/28/22 04/28/22 pregabalin 300 mg capsule 300 mg PO Q12H 04/28/22 04/28/22 tamsulosin 0.4 mg capsule 0.4 mg PO Q24H 04/28/22 04/28/22 Allergies Allergy/AdvReac Type Severity Reaction Status Date / Time aspirin Allergy Verified 04/28/22 19:02 Review of Systems Status of ROS: Reports: 10 or more systems reviewed and unremarkable except as noted in History and below [facility] Medical History (Updated 01/30/23 @ 21:52 by Moses Baker MD) Peripheral neuropathy ?G62.9 - Polyneuropathy, unspecified (ICD-10) BPH (benign prostatic hyperplasia) ?N40.0 - Benign prostatic hyperplasia without lower urinary tract symptoms (ICD-10) Hyperlipidemia ?E78.5 - Hyperlipidemia, unspecified (ICD-10) Hypertension ?I10 - Essential (primary) hypertension (ICD-10) CVA (cerebral vascular accident) ?I63.9 - Cerebral infarction, unspecified (ICD-10) Social History Smoking Status: Current every day smoker What tobacco products do you use: cigarettes Smoking packs per day: 0.5 Smoking cigarettes per day: 10.0 Years smoked: 49 Smoking pack-years: 24.50 Do you use any of these nicotine containing products: None Second hand tobacco smoke exposure: No How often do you have a drink containing alcohol: never How often do you have six or more drinks on one occasion: Never AUDIT-C Alcohol total score: 0 Non-prescribed substance use: denies use service: No Exam Narrative: Exam Narrative: EXAM GENERAL: Patient appears comfortable and well. EYES: No scleral icterus. ENT: Tympanic membranes and oropharynx normal. THYROID: no thyroid nodules or thyromegaly. LYMPH: No supraclavicular or cervical lymphadenopathy. SKIN: Visible skin seen during exam normal or with benign process only. EXT: Minimal swelling noted of the left ankle no other palpable abnormalities HEART: Regular rate and rhythm with no murmurs, rubs, or gallops. LUNGS: Clear to auscultation bilaterally with no crackles or wheezes. ABD: Soft, non tender, non distended. PSYCH: Good eye contact, speech is not pressured. Neurologic cranial nerves 2-12 grossly intact he does have proximally 2 out of strength in left upper extremity 4 in 5 strength in left lower extremity no focal neurologic defects. Back exam is normal. Const: Vital Signs, click to edit/add: Vital Signs - 24 hr 01/30/23 19:11 Temperature 97.8 F Pulse Rate [Left P ulse Oximeter] 99 Respiratory Rate 16 Blood Pressure [Ri ght Upper Arm] 124/79 Pulse Oximetry 96 Oxygen Delivery Me thod Room Air Course Course ED Course: Patient seen and examined. X-ray of lumbar spine and left ankle ordered. Vital Signs Vital signs: Initial Vital Signs Temperature 97.8 F 01/30/23 19:11 Temperature Source Temporal Artery Scan 01/30/23 19:11 Pulse Rate 99 01/30/23 19:11 Pulse Rhythm Regular 01/30/23 19:11 Respiratory Rate 16 01/30/23 19:11 Blood Pressure 124/79 01/30/23 19:11 Blood Pressure Mean 94 01/30/23 19:11 Blood Pressure Position Sitting 01/30/23 19:11 Pulse Oximetry 96 01/30/23 19:11 Oxygen Delivery Method Room Air 01/30/23 19:11 Vital Signs Temperature 97.8 F 01/30/23 19:11 Pulse Rate 99 01/30/23 19:11 Respiratory Rate 16 01/30/23 19:11 Blood Pressure 124/79 01/30/23 19:11 Pulse Oximetry 96 01/30/23 19:11 Oxygen Delivery Method Room Air 01/30/23 19:11 Temperature 97.8 F 01/30/23 19:11 Pulse Rate 99 01/30/23 19:11 Respiratory Rate 16 01/30/23 19:11 Blood Pressure 124/79 01/30/23 19:11 Pulse Oximetry 96 01/30/23 19:11 Oxygen Delivery Method Room Air 01/30/23 19:11 Medical Decision Making MDM Narrative Medical decision making narrative: Patient is a 57-year-old gentleman with history of left-sided cerebrovascular accident who somewhat going up stairs last night. He has pain in his lumbar spine which is normal on inspection and x-ray is unremarkable upon my review. He also has pain from his left ankle which is also normal on inspection. X-rays negative upon my review. Patient did not fall he had no presyncope or syncope he did not hit his head. He has no other major complaints other than his chronic weakness. We did carefully examine him x-ray him and review his findings. I did [place] left ankle and offered reassurance rotation of Tylenol Motrin rest and fluids. Differential Diagnosis Differential Diagnosis: Includes was not limited to fracture of the lumbar spine fracture of the a Discharge Plan Discharge Clinical Impression: Ankle sprain and strain Patient Disposition: Home, Self-Care Condition: Stable Instructions: Ankle Sprain (ED) Additional Instructions: Rest Ice Compression Elevation Tylenol Motrin Activity Level: No Restrictions Discharge Diet: Regular Prescriptions: No Action carvedilol 12.5 mg tablet 12.5 mg PO DAILY metformin 500 mg tablet extended release 24 hr 1,000 mg PO BID divalproex 500 mg tablet,delayed release (DR/EC) 500 mg PO Q12H fluoxetine 20 mg tablet 20 mg PO DAILY clopidogrel 75 mg tablet 75 mg PO DAILY atorvastatin 40 mg tablet 40 mg PO HS mirtazapine 15 mg tablet 15 mg PO HS pregabalin 300 mg capsule 300 mg PO Q12H losartan 25 mg tablet 25 mg PO DAILY tamsulosin 0.4 mg capsule 0.4 mg PO Q24H Follow Up/Referrals: Provider,Not a Local [Referring] - Stand Alone Forms: [facility] Inst[facility]
== END 2023-01-30 21:54 | disposition home or self-care (01) ==
PROVIDERS: Emergency Provider Internal Medicine; PCP Family Medicine
DX: S93.402A Sprain of unspecified ligament of left ankle, initial encounter (principal); W18.40XA Slipping, tripping and stumbling without falling, unspecified, initial encounter
CPT/HCPCS: 72100; 73610; 99283

== ENCOUNTER 2023-07-06 00:56 | Outpatient (CLI) | payer MEDICARE, SELFPAY | END 2023-07-06 00:57 | disposition home or self-care (01) | LOC: AMB 07-11 06:46 | PROVIDERS: Visit Provider Family Medicine | DX: R41.82 Altered mental status, unspecified (principal); R47.81 Slurred speech | CPT/HCPCS: A0425; A0427 ==

== ENCOUNTER 2023-07-06 01:26 | Observation (INO) | payer MEDICARE, SELFPAY ==
[2023-07-06] VITALS (29 sets, daily range): BP systolic 88–132; BP diastolic 56–85; PULSE 62–101; RESP 16–18; TEMP 36.3–37.1; O2SAT 91–98; BMI 24.7
--- NOTE | 2023-07-06 01:29 | CT_ITS ---
Patient: ANANT HORN Facility:?[facility] Patient ID:?[id number] Site Patient ID:?[id number]. Site :?[id number] Study:?CT-Head without contrast-07/06/2023 1:52:42 AM Ordering Physician:Matheus Mo Final Report: INDICATION: AMS. Stroke symptoms. CT HEAD WITHOUT CONTRAST TECHNIQUE: Multiple axial CT images were performed through the head without intravenous contrast administration. COMPARISON: 07/08/[address] FINDINGS: No acute intracranial hemorrhage is identified. No extra-axial collections are evident and there is no mass effect or midline shift. There is an unchanged moderate-sized chronic infarct in the right frontal lobe with mild ex vacuo enlargement of adjacent portions of the right lateral ventricle. Ventricles are otherwise normal in size and configuration. There is an unchanged small chronic infarct in the superior left cerebellum. Osseous structures are within normal limits and no fractures are seen. Included portions of the paranasal sinuses and mastoid air cells are normally aerated. IMPRESSION: 1. No acute intracranial abnormality identified. 2. Unchanged chronic right frontal lobe and left cerebellar infarcts. JONG MOYER MD [employer] Dictated by Wei Moyer MD @ 07/06/2023 2:12:50 AM Please note that all CT scans at this facility use dose modulation, iterative reconstruction, and/or weight-based dosing when appropriate to reduce radiation dose to as low as reasonably achievable. Dictated by: Wei Moyer MD @ 07/06/2023 02:13:30 Signed by:?Wei Moyer MD @07/06/2023 2:13:30 AM (Electronic Signature)
--- NOTE | 2023-07-06 01:43 | ED_ITS ---
HPI - General Adult General Chief complaint: Neuro Symptoms/Altered Deficit Stated complaint: Stroke Time Seen by Provider: 07/06/23 01:50 Source: patient, family and EMS Mode of arrival: EMS History of Present Illness HPI narrative: 57-year-old male with a prior history of stroke in 2019 with persistent left- sided deficits presents to the emergency department for evaluation of weakness, slurred speech and ataxia. Symptoms started 2 days ago. Patient states that he started feeling just generally unwell but nonspecific. Earlier this morning, at least 18 but not more than 24 hours ago, his girlfriend reports that he had slurred speech. He seemed a little off. They went to [employer] dinner and he seemed to do pretty well with that. He reports that he was still off balance but his story changes very frequently through this and it is difficult to interpret. He reports that he states that he feels like ?he has been drinking? but he does not drink any alcohol. His girlfriend tells us that this evening, approximately 45 minutes prior to arrival, he started having slurred speech again, prompting her to call EMS. Blood sugar was elevated at around 400 at approximately 10:00 p.m., reports that he took insulin. One report tells me he took 50 units, his insulin is not listed in his medication list. I am uncertain if this would of been a long or short acting. Blood sugar was 60 at time of EMS arrival which would certainly not explain his altered mental status. They report that he was not answering questions clearly, seemed confused. Thought that the EMS was the police, asked if he was going to present, able to follow some simple commands but nonsensical. He denies intoxication. When I asked more specifically about how he has not been feeling well, he cannot elaborate very well. [facility] admits that the history that they received was also fairly poor. He denies any chest pain or shortness of breath, denies any abdominal pain. He did vomit as he arrives to the ED. apparently did have exposure to influenza B in a sibling. Continues to smoke. Denies alcohol. Past medical history notable for prior stroke, depression, hypertension, type 2 diabetes. Stroke as persistent left-sided deficits and he is on Depakote for what I assume would be seizure prophylaxis. Denies recent procedures or medication changes. ROS notable for the generalized, neurological and nonspecific symptoms as described above. EMS administered about 50 mL of D10 blood sugars around 200 by the time of ED arrival. Related Data Home Medications Medication Instructions Recorded Confirmed atorvastatin 40 mg tablet 40 mg PO HS 04/28/22 07/06/23 carvedilol 12.5 mg tablet 12.5 mg PO DAILY 04/28/22 07/06/23 clopidogrel 75 mg tablet 75 mg PO DAILY 04/28/22 07/06/23 divalproex 500 mg tablet,delayed 500 mg PO Q12H 04/28/22 07/06/23 release fluoxetine 20 mg tablet 20 mg PO DAILY 04/28/22 07/06/23 losartan 25 mg tablet 25 mg PO DAILY 04/28/22 07/06/23 metformin 500 mg tablet,extended 1,000 mg PO BID 04/28/22 07/06/23 release 24 hr mirtazapine 15 mg tablet 15 mg PO HS 04/28/22 07/06/23 pregabalin 300 mg capsule 300 mg PO Q12H 04/28/22 07/06/23 tamsulosin 0.4 mg capsule 0.4 mg PO Q24H 04/28/22 07/06/23 Allergies Allergy/AdvReac Type Severity Reaction Status Date / Time aspirin Allergy Verified 04/28/22 19:02 [facility] Medical History Peripheral neuropathy ?G62.9 - Polyneuropathy, unspecified (ICD-10) BPH (benign prostatic hyperplasia) ?N40.0 - Benign prostatic hyperplasia without lower urinary tract symptoms (ICD-10) Hyperlipidemia ?E78.5 - Hyperlipidemia, unspecified (ICD-10) Hypertension ?I10 - Essential (primary) hypertension (ICD-10) CVA (cerebral vascular accident) ?I63.9 - Cerebral infarction, unspecified (ICD-10) Social History Smoking Status: Current every day smoker What tobacco products do you use: oliverio mcwilliams Smoking packs per day: 0.5 Smoking cigarettes per day: 10.0 Years smoked: 49 Smoking pack-years: 24.50 Do you use any of these nicotine containing products: None Second hand tobacco smoke exposure: No How often do you have a drink containing alcohol: never How often do you have six or more drinks on one occasion: Never AUDIT-C Alcohol total score: 0 Non-prescribed substance use: denies use service: No Exam Const: Vital Signs, click to edit/add: Vital Signs - 24 hr 07/06/23 01:33 07/06/23 01:45 07/06/23 01:46 Temperature 97.4 F L Pulse Rate 99 101 H Blood Pressure 114/75 Pulse Oximetry 96 95 Oxygen Delivery Me thod Room Air 07/06/23 01:47 07/06/23 02:00 07/06/23 02:02 Temperature Pulse Rate 98 100 96 Blood Pressure 95/69 Pulse Oximetry 95 94 94 Oxygen Delivery Me thod 07/06/23 02:15 07/06/23 02:22 07/06/23 02:30 Temperature Pulse Rate 97 97 96 Blood Pressure 91/60 Pulse Oximetry 92 92 91 Oxygen Delivery Me thod 07/06/23 02:42 07/06/23 02:45 07/06/23 02:47 Temperature Pulse Rate 94 95 93 Blood Pressure 88/56 L 94/59 L Pulse Oximetry 92 91 91 Oxygen Delivery Me thod 07/06/23 02:48 07/06/23 03:00 07/06/23 03:30 Temperature Pulse Rate 94 94 92 Blood Pressure Pulse Oximetry 92 91 95 Oxygen Delivery Me thod 07/06/23 03:42 07/06/23 03:45 07/06/23 04:00 Temperature Pulse Rate 90 91 92 Blood Pressure 96/61 Pulse Oximetry 92 92 92 Oxygen Delivery Me thod 07/06/23 04:02 07/06/23 04:15 07/06/23 04:22 Temperature Pulse Rate 92 90 89 Blood Pressure 89/63 L 88/61 L Pulse Oximetry 92 93 94 Oxygen Delivery Me thod 07/06/23 04:30 07/06/23 04:41 Temperature Pulse Rate 89 93 Blood Pressure 98/63 Pulse Oximetry 92 93 Oxygen Delivery Me thod Documenting provider has reviewed patient's vital signs: yes Other: Seems confused, does not answer questions clearly but he will open eyes and follow commands when requested. Does not smell of alcohol. Appears generally weak. Clearly not moving left arm but that is apparently chronic. Slurring of the speech seems intermittent. We met him in the hallway immediately after leaving the ambulance [place], prior to entering the ED. speech was minimally slurred at that point but certainly not slurred when he was answering questions more clearly in the CT [place]. HENMT: Common normals: normocephalic Head and scalp: normocephalic Face and sinus: normal facial exam Mouth: oral and palatal mucosa normal Eye: Common normals: PERRL, EOMs intact bilaterally and conjunctivae normal General eye: normal appearance of both eyes Conjunctiva: conjunctiva(e) normal Pupil: PERRL Neck & C-Spine: Common normals: full ROM and no lymphadenopathy Chest: Common normals: inspection of chest normal Resp: Common normals: normal respiratory effort, no use of accessory muscles and clear to auscultation bilaterally Auscultation: clear to auscultation bilaterally Cardio: Common normals: regular rate, regular rhythm, S1 normal heart sound, S2 normal heart sound and no murmurs Rate: regular rate Rhythm: regular rhythm Heart sounds: S1 normal and S2 normal GI: Common normals: Normal to inspection, nondistended, normoactive bowel sounds present, soft to palpation, no hepatosplenomegaly and no masses Palpation: soft and no hepatosplenomegaly Back & Pelvis: Common normals: thoracic and lumbar spine normal to inspection Extremity: Common normals: normal capillary refill and no joint enlargement Other: 2/5 weakness to left upper extremity. F lexor seem more affected than extensors. 4/5 weakness of left lower extremity. Right upper extremities do seem symmetric. No pronator drift on right, unable to test left. Neuro: Other: Pupils are equal. No facial asymmetry. Chronic appearing left upper extremity weakness as described above. Some mild weakness appreciated in left lower extremity. Initial slurring of the speech does not seem currently present on full examination. Psych: Appearance: unkempt Other: Confused but cooperative. No agitation. Skin: Common normals: no rashes or lesions noted General skin exam: no rashes or lesions noted Course Course ED Course: Altered mental status, weakness of uncertain etiology. Question intoxication, stroke, infection, cardiac event. We are seeing a lot of influenza B, this certainly could be another case and he has been exposed. I have biggest concern that he is having another stroke, especially as he continues to smoke and has waxing and waning neurological changes. We will start with a noncontrast head CT. I viewed this in the CT [place] and do not see any evidence of acute bleed but he certainly does have very large changes in his right cerebrum consistent with known prior stroke and his left-sided deficits. With vomiting in triage, generalized weakness and waxing and waning symptoms, this is more likely a medical event the necessarily a stroke. He also is certainly not in the ideal window for thrombolytics with at least 18 hours of symptoms. I would perform a more thorough medical workup and then consider neurology input once this is completed. Reevaluation(s) Time of Reevaluation #1: 04:47 Reevaluation #1: Blood pressures had initially been normal, then after about a 1/2 hour noticed around 90 systolic. Patient has received 1 L of fluid, his 1st potassium bump and is now on his 2nd bolus of fluid. Blood pressure is now about 100 systolic. Still no tachycardia but that would be masked course by his beta-sharon use. Has not had a urine sample, will straight cath to look for any infection. Results of CT scans discussed with patient family. Will start IV and oral potassium replacement. I spoke with the hospitalist. Will admit for fluids, management of hypokalemia, PT consult. We discussed neuro consult an MRI if he is not improving with continued fluid and electrolyte replacement. Will not start any antibiotics at this time as he is not febrile. The leukocytosis could certainly be explained by the gastroenteritis. I will follow-up on the results of the urinalysis as well. Repeat lactate is improving. Dehydration, gastroenteritis, possible stroke but less likely, hypokalemia. Vital Signs Vital signs: Initial Vital Signs Temperature 97.4 F L 07/06/23 01:33 Temperature Source Temporal Artery Scan 07/06/23 01:33 Oxygen Delivery Method Room Air 07/06/23 01:33 Vital Signs Temperature 97.4 F L 07/06/23 01:33 Oxygen Delivery Method Room Air 07/06/23 01:33 Temperature 97.4 F L 07/06/23 01:33 Pulse Rate 93 07/06/23 04:41 Blood Pressure 98/63 07/06/23 04:41 Pulse Oximetry 93 07/06/23 04:41 Oxygen Delivery Method Room Air 07/06/23 01:33 Medications Administered Medications: Generic Name Dose Route Start Last Admin Trade Name Freq PRN Reason Stop Dose Admin Potassium Chloride 10 meq in 100 mls @ 100 mls/hr 07/06/23 02:45 07/06/23 04:21 Potassium Chloride IVPB 07/06/23 05:14 100 mls/hr Q90M RSOE Administration Sodium Chloride 500 mls @ 250 mls/hr 07/06/23 03:48 07/06/23 04:21 0.9 % Sodium Chloride 500 Ml IV 07/06/23 05:47 250 mls/hr .Q2H ONE Administration Discontinued Medications Generic Name Dose Route Start Last Admin Trade Name Noam PRN Reason Stop Dose Admin Sodium Chloride 1,000 mls @ 500 mls/hr 07/06/23 01:31 07/06/23 04:22 0.9 % Sodium Chloride 1000 Ml IV 07/06/23 03:30 Infused .Q2H ROSE Infusion Ondansetron HCl 4 mg 07/06/23 01:48 07/06/23 02:01 Ondansetron 2 Mg/Ml Inj IVP 07/06/23 01:49 4 mg ONCE ONE Administration Medical Decision Making Lab Data Lab results reviewed: Yes I reviewed the patient's lab results Lab results narrative: Leukocytosis with left shift. Elevated lactate, normal CRP. Good renal function and normal liver enzymes. Viral swabs negative. Troponin reassuring. Overall suggestive of infection and sepsis. Labs: Lab Results 07/06/23 07/06/23 07/06/23 Range/Units 01:29 01:54 01:54 WBC 17.10 H (4.50-11.00) K/uL RBC 5.23 (4.30-5.90) m/uL Hgb 15.3 (13.5-17.5) gm/dL Hct 45.1 (37.0-53.0) % MCV 86 (80-100) fL MCH 29 (26-34) pg MCHC 34 (32-36) gm/dL RDW Coeff of Kenneth 12.7 (11.5-15.5) % Plt Count 198 (140-440) K/uL Neut % (Auto) 75.0 H (42.0-72.0) % Lymph % (Auto) 12.9 L (20-44) % [place] % (Auto) 10.3 (0.0-11.0) % Eos % (Auto) 0.6 (0.0-7.0) % Baso % (Auto) 0.1 (0.0-3.0) % Neut # (Auto) 12.80 H (1.7-7.0) K/uL Lymph # (Auto) 2.20 (0.90-2.90) K/uL [place] # (Auto) 1.80 H (0.00-0.90) K/UL Eos # (Auto) 0.10 (0.00-0.50) K/uL Baso # (Auto) 0.00 (0.00-0.30) K/uL Abs Immat Gran (auto) 0.20 (0.00-0.30) K/uL Imm/Tot Granulo (auto) 1.1 % VBG pH (7.32-7.43) VBG pCO2 (40-50) mmHG VBG pO2 (25-47) mmHG VBG HCO3 (21-28) mmol/L Sodium 141 (135-149) mmol/L Potassium 2.6 L* (3.6-5.1) mmol/L Chloride 107 (96-114) mmol/L Carbon Dioxide 19 L (20-32) mmol/L Anion Gap 15 (7-15) mEq/L BUN 21 (7-30) mg/dL Creatinine 0.7 (0.5-1.5) mg/dL Estimated GFR 106 ml/min Glucose 83 (60-115) mg/dL Lactate 6.6 H* (0.5-1.9) mmol/L Calcium 9.3 (8.4-10.6) mg/dL Total Bilirubin 0.3 (0.1-1.5) mg/dL AST 24 (12-35) U/L ALT 31 (4-50) U/L Alkaline Phosphatase 95 (40-150) U/L C-Reactive Protein < 0.5 L Cancelled (0.5-1.0) mg/dL Total Protein 6.5 (6.0-8.3) g/dL Albumin 3.9 (3.3-5.0) g/dL Lipase 164 (23-300) U/L Ethyl Alcohol < 0.01 L (0.01-0.03) % SARS-CoV-2 (PCR) Negative SARS-CoV-2 (Negative) Influenza Type A (PCR) Negative PCR FLU A (Negative) Influenza Type B (PCR) Negative PCR FLU B (Negative) RSV (PCR) Negative PCR RSV (Negative) POC Troponin I 0.01 (0.01-0.04) ng/ml 07/06/23 Range/Units 04:10 WBC (4.50-11.00) K/uL RBC (4.30-5.90) m/uL Hgb (13.5-17.5) gm/dL Hct (37.0-53.0) % MCV (80-100) fL MCH (26-34) pg MCHC (32-36) gm/dL RDW Coeff of Kenneth (11.5-15.5) % Plt Count (140-440) K/uL Neut % (Auto) (42.0-72.0) % Lymph % (Auto) (20-44) % [place] % (Auto) (0.0-11.0) % Eos % (Auto) (0.0-7.0) % Baso % (Auto) (0.0-3.0) % Neut # (Auto) (1.7-7.0) K/uL Lymph # (Auto) (0.90-2.90) K/uL [place] # (Auto) (0.00-0.90) K/UL Eos # (Auto) (0.00-0.50) K/uL Baso # (Auto) (0.00-0.30) K/uL Abs Immat Gran (auto) (0.00-0.30) K/uL Imm/Tot Granulo (auto) % VBG pH 7.353 (7.32-7.43) VBG pCO2 44 (40-50) mmHG VBG pO2 62.0 H (25-47) mmHG VBG HCO3 25 (21-28) mmol/L Sodium (135-149) mmol/L Potassium (3.6-5.1) mmol/L Chloride (96-114) mmol/L Carbon Dioxide (20-32) mmol/L Anion Gap (7-15) mEq/L BUN (7-30) mg/dL Creatinine (0.5-1.5) mg/dL Estimated GFR ml/min Glucose (60-115) mg/dL Lactate 4.2 H* (0.5-1.9) mmol/L Calcium (8.4-10.6) mg/dL Total Bilirubin (0.1-1.5) mg/dL AST (12-35) U/L ALT (4-50) U/L Alkaline Phosphatase (40-150) U/L C-Reactive Protein (0.5-1.0) mg/dL Total Protein (6.0-8.3) g/dL Albumin (3.3-5.0) g/dL Lipase (23-300) U/L Ethyl Alcohol (0.01-0.03) % SARS-CoV-2 (PCR) (Negative) Influenza Type A (PCR) (Negative) Influenza Type B (PCR) (Negative) RSV (PCR) (Negative) POC Troponin I (0.01-0.04) ng/ml Imaging Data CT scan - head: Attestation: I have reviewed the pertinent imaging results. My impression: Chronic ischemic changes, especially notable in the right frontal lobes. No signs of acute bleed but there are a lot of vascular calcifications. Radiologist's impression: IMPRESSION: 1. No acute intracranial abnormality identified. 2. Unchanged chronic right frontal lobe and left cerebellar infarcts. CT Chest/Ab/Pelvis: Attestation: I have reviewed the pertinent imaging results. Radiologist's impression: IMPRESSION: 1. Enteritis is suspected in the jejunum. 2. Apparent nonspecific wall thickening in the ascending colon may be exaggerated by nondistention. 3. Remainder of the exam is unremarkable. Critical Care Time Critical Care Time Critical Care Time: Yes Attestation: The patient required my highest level preparedness to intervene emergently and I personally spent this critical care time directly and personally managing the patient. This critical care time included: Obtaining a history; Examining the patient; Pulse oximetry; Ordering and reviewing of studies; Arranging urgent treatment with development of a management plan; Evaluation of patients response to treatment; Frequent reassessment discussions with other providers. This critical care time was performed to assess and manage the high probability of imminent life-threatening deterioration that could result in multiorgan failure. It was exclusive of separate billable procedures and treating other patients and teaching time. Total Critical Care Time in Minutes: 35 (Met patient at ambulance [place], facilitated transport to CT, assisted with moving patient to CT, movement back to exam room and initial stabilization. 35 minutes critical care time.) Discharge Plan Discharge Clinical Impression: Acute dehydration, Gastroenteritis, Altered mental status Prescriptions: No Action carvedilol 12.5 mg tablet 12.5 mg PO DAILY metformin 500 mg tablet extended release 24 hr 1,000 mg PO BID divalproex 500 mg tablet,delayed release (DR/EC) 500 mg PO Q12H fluoxetine 20 mg tablet 20 mg PO DAILY clopidogrel 75 mg tablet 75 mg PO DAILY atorvastatin 40 mg tablet 40 mg PO HS mirtazapine 15 mg tablet 15 mg PO HS pregabalin 300 mg capsule 300 mg PO Q12H losartan 25 mg tablet 25 mg PO DAILY tamsulosin 0.4 mg capsule 0.4 mg PO Q24H Follow Up/Referrals: Lincoln Hanna DO [Referring] -
[2023-07-06] MEDS: 0.9 % SODIUM CHLORIDE 1000 ml 1,000 ML 500 ML IV (01:46)
[2023-07-06] MEDS: ONDANSETRON 2 MG/ML inj 4 MG IVP (02:01)
[2023-07-06 02:08] LABS: Basophils Percent Auto 0.1 % (0.0-3.0); Eosinophils Percent Auto 0.6 % (0.0-7.0); Hematocrit 45.1 % (37.0-53.0); Hemoglobin* 15.3 gm/dL (13.5-17.5); Immature Granulocytes Pct Auto 1.1 %; Lymphocytes Percent Auto 12.9 % (20-44); Mean Corpuscular HGB Conc 34 gm/dL (32-36); Mean Corpuscular Hemoglobin 29 pg (26-34); Mean Corpuscular Volume 86 fL (80-100); Monocytes Percent Auto 10.3 % (0.0-11.0); Platelet Count* 198 K/uL (140-440); RDW Coefficient of Variation % 12.7 % (11.5-15.5); Red Blood Count 5.23 m/uL (4.30-5.90)
[2023-07-06 02:12] LABS: Troponin, Point-of-Care* 0.01 ng/ml (0.01-0.04)
--- NOTE | 2023-07-06 02:13 | ED.NURSE ---
stroke code not activated per MD @ [id number]
[2023-07-06 02:14] LABS: Slide Review Reflex No
--- NOTE | 2023-07-06 02:16 | CT_ITS ---
Patient: ANANT HORN Facility:?[facility] Patient ID:?[id number] Site Patient ID:?[id number]. Site :?[id number] Study:?CT-Chest/Abd/Pelvis with 80cc [id number] contrast-07/06/2023 3:33:02 AM Ordering Physician:Matheus Mo Final Report: INDICATION: Fever. Sepsis. Vomiting. TECHNIQUE: CT chest, abdomen and pelvis acquired 80 cc Isovue 370 IV contrast. COMPARISON: None. FINDINGS: CHEST: Cardiovascular structures: Heart size is normal. Thoracic aorta and main pulmonary artery are normal in caliber. Mediastinum and eunice: No mass or adenopathy. Lungs and pleura: Lungs and pleural spaces are clear. No suspicious nodules, infiltrates, or effusions. Chest wall and axilla: No mass or adenopathy. Bones: No suspicious bone lesions. Unremarkable for age. ABDOMEN AND PELVIS: Liver: Unremarkable. Gallbladder and bile ducts: Cholecystectomy. Pancreas: Unremarkable. Spleen: Unremarkable. Adrenal glands: Unremarkable. Kidneys: Unremarkable. GI tract: Moderate fluid retention within loops of jejunum which may be mildly inflamed. Apparent wall thickening in the decompressed ascending colon. Vascular structures: Unremarkable. Lymph nodes: Unremarkable. Peritoneum/Retroperitoneum/Abdominal Wall: Unremarkable. No free air or significant free fluid. Pelvic Organs: Unremarkable. Bones and superficial soft tissues: No suspicious bone lesions. Unremarkable for age. IMPRESSION: 1. Enteritis is suspected in the jejunum. 2. Apparent nonspecific wall thickening in the ascending colon may be exaggerated by nondistention. 3. Remainder of the exam is unremarkable. Please note that all CT scans at this facility use dose modulation, iterative reconstruction, and/or weight-based dosing when appropriate to reduce radiation dose to as low as reasonably achievable. Dictated by Perry Neri MD @ 07/06/2023 3:54:36 AM Signed by:?Perry Neri MD @07/06/2023 3:54:36 AM (Electronic Signature)
[2023-07-06 02:18] LABS: Lactate* 6.6 mmol/L (0.5-1.9)
[2023-07-06 02:23] LABS: Albumin* 3.9 g/dL (3.3-5.0); Chloride* 107 mmol/L (96-114)
[2023-07-06 02:24] LABS: Sodium* 141 mmol/L (135-149)
[2023-07-06 02:26] LABS: Alkaline Phosphatase* 95 U/L (40-150); Anion Gap 15 mEq/L (7-15); Aspartate Amino Transferase* 24 U/L (12-35); Bilirubin Total* 0.3 mg/dL (0.1-1.5); Carbon Dioxide* 19 mmol/L (20-32); Creatinine* 0.7 mg/dL (0.5-1.5); Estimated Glomerular Filt Rate 106 ml/min; Lipase* 164 U/L (23-300); Total Protein* 6.5 g/dL (6.0-8.3)
[2023-07-06 02:27] LABS: Blood Urea Nitrogen* 21 mg/dL (7-30); Calcium* 9.3 mg/dL (8.4-10.6); Glucose* 83 mg/dL (60-115)
[2023-07-06 02:32] LABS: C Reactive Protein* < 0.5 mg/dL (0.5-1.0); Ethanol* < 0.01 % (0.01-0.03)
[2023-07-06 02:34] LABS: Potassium* 2.6 mmol/L (3.6-5.1)
[2023-07-06 02:41] LABS: Alanine Aminotransferase* 31 U/L (4-50)
[2023-07-06 02:45] LABS: PCR FLU A Negative PCR FLU A (Negative); PCR FLU B Negative PCR FLU B (Negative); PCR RSV Negative PCR RSV (Negative); SARS PCR* Negative SARS-CoV-2 (Negative)
[2023-07-06] MEDS: POTASSIUM CHLORIDE 10 MEQ/100 ML PIGGYBACK 100 MEQ IVPB ×2 (02:52→04:21)
[2023-07-06 04:12] LABS: HCO3 VBG 25 mmol/L (21-28); PCO2 VBG 44 mmHG (40-50); pH VBG 7.353 (7.32-7.43)
[2023-07-06 04:16] LABS: Lactate* 4.2 mmol/L (0.5-1.9)
[2023-07-06] MEDS: 0.9 % SODIUM CHLORIDE 500 ML 500 ML 250 ML IV (04:21)
--- NOTE | 2023-07-06 05:12 | ED.NURSE ---
Rn to Rn report given. Pt taken to room 256 via cart
[2023-07-06 05:35] LABS: Appearance Urine Clear (Clear); Bilirubin Urine Negative (Negative); Blood Urine Negative (Negative); Color Urine Yellow (Yellow); Glucose Urine 2+ (Negative); Ketones Urine Trace (Negative); Leukocyte Esterase Urine Negative (Negative); Nitrite Urine Negative (Negative); Protein Urine Trace (Negative); Specific Gravity Urine 1.015 (1.000-1.030); Urobilinogen Urine 0.2 (0.2-1.0)
--- NOTE | 2023-07-06 05:36 | ED.NURSE ---
straight cath done to obtain urine. 200 cc from cath. urine sample sent to lab.
--- NOTE | 2023-07-06 05:39 | ED.NURSE ---
pt belongings with .
[2023-07-06 06:14] LABS: Bacteria Urine Few; RBC Urine 0-2 (0-2); Squamous Epithelial Cell Urine Few (None-Few); WBC Urine 0-2 (0-5)
--- NOTE | 2023-07-06 06:35 | W.PM.TELEH&P ---
Telehealth- H&P: HPI History of Present Illness Date Seen: 07/06/23 Chief complaint: Stroke Narrative: Flavio Dwyer is seen as an Interactive Telehealth visit. Flavio Dwyer is a 57 year old male who is seen in his hospital room at [facility] with the assistance of nursing staff. His girlfriend is present during interview and exam. He is somewhat of a poor historian and difficult to obtain a history from. Patient tells me he has not been feeling well for 2 days but really nonspecific about it he initially states he had abdominal pain that did not and he told me that he was vomiting and then was not vomiting. He was good enough to go to family events on [facility] and seemed to do okay. His girlfriend noted that afterwards he seemed to be a little bit confused he was slurring his words. Patient tells me he was vomiting he is quite weak. He is having a hard time getting up walking. He was evaluated in the emergency room he was ultimately found to have hypokalemia along with probable dehydration along with weakness. He has now been admitted for further evaluation and treatment. Von is telling me he is hungry he wants some eggs. He does not have any other complaints some. He is looking forward to going home. Review of Systems Narrative: A complete review of systems was performed positive pertinent and negatives in the history of present illness. [facility] Medical History Peripheral neuropathy ?G62.9 - Polyneuropathy, unspecified (ICD-10) BPH (benign prostatic hyperplasia) ?N40.0 - Benign prostatic hyperplasia without lower urinary tract symptoms (ICD-10) Hyperlipidemia ?E78.5 - Hyperlipidemia, unspecified (ICD-10) Hypertension ?I10 - Essential (primary) hypertension (ICD-10) CVA (cerebral vascular accident) ?I63.9 - Cerebral infarction, unspecified (ICD-10) Family History Father Heart disease Mother Heart disease Social History What is your current living situation?: I presently have a place to live Problems where you live: no known problems Problems where you live details: NA In the past 12 months, utilities in danger of being shut off: no In past 12 months, lack of transportation kept you from medical appts, meetings, work, or getting things needed for daily living: no In the past 12 mos, have been you worried that your food would run out before you had money to buy more?: never true In the past 12 mos, the food you bought just didn't last and you didn't have money to buy more?: never true Smoking Status: Current every day smoker What tobacco products do you use: cigarettes Smoking packs per day: 1 Smoking cigarettes per day: 20.0 Years smoked: 49 Smoking pack-years: 49.00 Do you use any of these nicotine containing products: None Second hand tobacco smoke exposure: No How often do you have a drink containing alcohol: never How often do you have six or more drinks on one occasion: Never AUDIT-C Alcohol total score: 0 Non-prescribed substance use: denies use Caffeine: Yes (5-6 pops/day) How often does anyone, including family, friends and others, physically hurt you: never How often does anyone, including family, friends and others, insult or talk down to you: never How often does anyone, including family, friends and others, threaten you with harm: never How often does anyone, including family, friends and others, scream or curse at you: never service: No Meds Home Medications and Allergies Home Medications Medication Instructions Recorded Confirmed Type atorvastatin 40 mg tablet 40 mg PO HS 04/28/22 07/06/23 History carvedilol 12.5 mg tablet 12.5 mg PO DAILY 04/28/22 07/06/23 History clopidogrel 75 mg tablet 75 mg PO DAILY 04/28/22 07/06/23 History divalproex 500 mg tablet,delayed 500 mg PO Q12H 04/28/22 07/06/23 History release fluoxetine 20 mg tablet 20 mg PO DAILY 04/28/22 07/06/23 History losartan 25 mg tablet 25 mg PO DAILY 04/28/22 07/06/23 History metformin 500 mg tablet,extended 1,000 mg PO BID 04/28/22 07/06/23 History release 24 hr mirtazapine 15 mg tablet 15 mg PO HS 04/28/22 07/06/23 History pregabalin 300 mg capsule 300 mg PO Q12H 04/28/22 07/06/23 History tamsulosin 0.4 mg capsule 0.4 mg PO Q24H 04/28/22 07/06/23 History Allergies Allergy/AdvReac Type Severity Reaction Status Date / Time aspirin Allergy Verified 04/28/22 19:02 Exam Narrative Exam Narrative: Physical Exam GENERAL: ?vital signs reviewed, well developed and nourished, in no distress HEENT: pupils are equal round and reactive to light, extraocular movements are grossly within normal limits and oral mucosa is moist. NECK: Supple without lymphadenopathy or thyromegaly according to nursing staff examination observation HEART: Regular rate and rhythm without any rubs, murmurs, or gallops. LUNGS: Clear to auscultation bilaterally with good air movement throughout ABDOMEN: Observation from nurse assisted exam, abdomen appears soft, nontender, and nondistended with Positive bowel sounds noted. EXTREMITIES: Strength and sensation is observed to be grossly within normal limits in the upper and lower extremities.? No focal strength deficit is observed. SKIN:? Observed warm and dry with color normal Const Vital Signs, click to edit/add: Vital Signs - 24 hr 07/06/23 01:33 07/06/23 01:45 07/06/23 01:46 Temperature 97.4 F L Pulse Rate 99 101 H Pulse Rate [Pulse Oximeter] Respiratory Rate Blood Pressure 114/75 Blood Pressure [Right Arm] Pulse Oximetry 96 95 Oxygen Delivery Method Room Air 07/06/23 01:47 07/06/23 02:00 07/06/23 02:02 Temperature Pulse Rate 98 100 96 Pulse Rate [Pulse Oximeter] Respiratory Rate Blood Pressure 95/69 Blood Pressure [Right Arm] Pulse Oximetry 95 94 94 Oxygen Delivery Method 07/06/23 02:15 07/06/23 02:22 07/06/23 02:30 Temperature Pulse Rate 97 97 96 Pulse Rate [Pulse Oximeter] Respiratory Rate Blood Pressure 91/60 Blood Pressure [Right Arm] Pulse Oximetry 92 92 91 Oxygen Delivery Method 07/06/23 02:42 07/06/23 02:45 07/06/23 02:47 Temperature Pulse Rate 94 95 93 Pulse Rate [Pulse Oximeter] Respiratory Rate Blood Pressure 88/56 L 94/59 L Blood Pressure [Right Arm] Pulse Oximetry 92 91 91 Oxygen Delivery Method 07/06/23 02:48 07/06/23 03:00 07/06/23 03:30 Temperature Pulse Rate 94 94 92 Pulse Rate [Pulse Oximeter] Respiratory Rate Blood Pressure Blood Pressure [Right Arm] Pulse Oximetry 92 91 95 Oxygen Delivery Method 07/06/23 03:42 07/06/23 03:45 07/06/23 04:00 Temperature Pulse Rate 90 91 92 Pulse Rate [Pulse Oximeter] Respiratory Rate Blood Pressure 96/61 Blood Pressure [Right Arm] Pulse Oximetry 92 92 92 Oxygen Delivery Method 07/06/23 04:02 07/06/23 04:15 07/06/23 04:22 Temperature Pulse Rate 92 90 89 Pulse Rate [Pulse Oximeter] Respiratory Rate Blood Pressure 89/63 L 88/61 L Blood Pressure [Right Arm] Pulse Oximetry 92 93 94 Oxygen Delivery Method 07/06/23 04:30 07/06/23 04:41 07/06/23 05:50 Temperature 97.5 F L Pulse Rate 89 93 Pulse Rate [Pulse Oximeter] 90 Respiratory Rate 16 Blood Pressure 98/63 Blood Pressure [Right Arm] 104/73 Pulse Oximetry 92 93 98 Oxygen Delivery Method Room Air 07/06/23 05:50 Temperature Pulse Rate Pulse Rate [Pulse Oximeter] Respiratory Rate Blood Pressure Blood Pressure [Right Arm] Pulse Oximetry 98 Oxygen Delivery Method Room Air Hospitalist - H&P: Result Labs Labs: Short CBC 07/06/23 Range/Units 01:54 WBC 17.10 H (4.50-11.00) K/uL Hgb 15.3 (13.5-17.5) gm/dL Hct 45.1 (37.0-53.0) % Plt Count 198 (140-440) K/uL BMP 07/06/23 01:54 Sodium 141 Potassium 2.6 L* Chloride 107 Carbon Dioxide 19 L BUN 21 Creatinine 0.7 Glucose 83 Calcium 9.3 Liver Function 07/06/23 Range/Units 01:54 Total Bilirubin 0.3 (0.1-1.5) mg/dL AST 24 (12-35) U/L ALT 31 (4-50) U/L Alkaline Phosphatase 95 (40-150) U/L Albumin 3.9 (3.3-5.0) g/dL Urine 07/06/23 Range/Units 01:29 Urine Color Yellow (Yellow) Urine Appearance Clear (Clear) Urine pH 5.0 (5.0-8.5) Ur Specific [place] 1.015 (1.000-1.030) Urine Protein Trace A (Negative) Urine Glucose (UA) 2+ A (Negative) Assessment and Plan Assessment and plan (1) Acute dehydration: Status: Acute (2) Gastroenteritis: Status: Acute (3) Weakness: Status: Acute (4) Hypokalemia: Status: Acute (5) Leukocytosis: Status: Acute (6) Lactic acid acidosis: Status: Acute Plan Acute dehydration?normal saline will run very slowly. Overall I think that he is catching up on his volume. Gastroenteritis?based on CT scan abdominal discomfort currently he is hungry his states his abdominal pain has gone away and has improved. Patient does have an elevated white count significance unclear if this is related to his abdominal process. Continue to follow clinically Increased weakness?likely secondary to hypokalemia. Anticipate once his potassium normalizes his strength should improve. Could be some degree of deconditioning as well. He is will benefit from physical therapy. Hypokalemia?we will replace. Patient received multiple bumps in the emergency room. Will recheck for his magnesium potassium and lactic acid are currently. Replace per protocol once these come back from the lab. Leukocytosis?likely acute demargination gastroenteritis I do not see any signs of active infection we will continue to watch him very closely. Lactic acidosis?patient is going before being which may be causing some of his lactic acidosis otherwise I do not see any other marked cause. May be some liver dysfunction etc.. For now we will repeat another lactic acid continue to follow clinically hopefully this continues to improve. Metformin will be held. Diabetes?metformin currently on hold see above DVT prophylaxis will use subcutaneous Lovenox if needed. At this point anticipate a relatively short hospital stay. Possible strokelike symptoms. Very vague difficult to tease out from his previous CVA for significant this is slurred words he seems to be back to his baseline. If he continues to act confused MRI of the head may be appropriate. CODE STATUS was discussed on admission he wishes to be a full code. Caio Gomez DO, Pharm. D. Telehealth: Statement Statement Telehealth Visit: Today's History and Physical is provided via interactive telehealth by Caio Gomez DO.? Patient is located at [facility].? Provider is located at [employer] [facility].? Nursing staff assisted with the patient's exam. The visit being done today meets criteria for a telehealth visit and the patient or patient?s parent/guardian is aware the visit is a telehealth visit. Camera Start Time: 06:05 Camera End Time: 06:22
[2023-07-06] MEDS: TAMSULOSIN HCL 0.4 MG CAPSULE PO (06:52)
[2023-07-06 06:56] LABS: Magnesium* 1.7 mg/dL (1.5-2.6)
--- NOTE | 2023-07-06 07:38 | PC.NURSE ---
End of shift [id number] ? Pt arrived to floor at approximately 0530. Pt oriented to self, fatigued, and distractible. Pt tolerating RA and denies pain. Significant-other at bedside, able to answer most admission questions. Pt observed to roll over and appeared to pretend to sleep during admission and assessment by RN and MD. Easily roused and redirected to situation. Pt appears to be resting comfortably at end of shift. ?
[2023-07-06] MEDS: 5 % DEX/0.9 SOD CHL+KCL 20 mEq 1,000 ML 125 ML IV (08:07)
[2023-07-06] MEDS: carvediloL 6.25 MG TABLET 12.5 MG PO (08:07)
[2023-07-06] MEDS: LOSARTAN POTASSIUM 50 MG TABLET 25 MG PO (08:07)
[2023-07-06] MEDS: POTASSIUM CHLORIDE 10 MEQ CAPSULE ER 40 MEQ PO (08:08)
[2023-07-06] MEDS: CLOPIDOGREL 75 MG TABLET PO (08:08)
[2023-07-06] MEDS: SODIUM CHLORIDE 0.9 % (FLUSH) 10 ML SYRINGE 5 ML IVF ×2 (08:08→21:07)
[2023-07-06 09:03] LABS: HCO3 VBG 26 mmol/L (21-28); Lactate* 2.2 mmol/L (0.5-1.9); PCO2 VBG 46 mmHG (40-50); PO2 VBG 34.4 mmHG (25-47); pH VBG 7.367 (7.32-7.43)
[2023-07-06] MEDS: DIVALPROEX DELAYED RELEASE 250 MG TABLET 500 MG PO ×2 (09:09→21:06)
[2023-07-06] MEDS: FLUOXETINE HCL 10 MG CAPSULE PO (09:10)
[2023-07-06] MEDS: PREGABALIN 100 MG CAPSULE 300 MG PO ×2 (09:10→21:09)
--- NOTE | 2023-07-06 09:26 | P.IMPN_ITS ---
Progress Note: A&P Assessment and plan (1) Acute dehydration: Problem details: - improved with IVFs since admission, restarting po intake on 07/05 Status: Acute (2) Gastroenteritis: Problem details: - enteritis on initial imaging Status: Acute (3) Weakness: Problem details: - therapies to evaluate today Status: Acute (4) Hypokalemia: Problem details: - noted on admission, resolved 07/05 Status: Acute (5) Leukocytosis: Problem details: - likely viral/reactive, will follow - afebrile, no hypotension or tachycardia Status: Acute (6) Lactic acid acidosis: Problem details: - improving Status: Acute Plan - continue po intake, follow BG, WBC, electrolytes, and symptoms - likely home tomorrow if remains stable - partner updated at bedside, questions answered Subjective Date Seen: 07/06/23 Interval history: Von was admitted to the hospital early this morning for enteritis and confusion in the setting of poorly controlled IDDM2. He admits to not using insulin for some time recently (wasn't taking the majority of his medications intermittently over the past 1-2 months). This morning, he is feeling better, still weak and not yet back to baseline. No further vomiting, tolerating breakfast well. Lactate has significantly improved, potassium has normalized, pH normal. Exam Narrative: Exam Narrative: GEN: Alert and oriented, sitting comfortably in bedside chair HEENT: Poor dentition (no acute infectious findings), EOMIs bilaterally, no scleral icterus CV: RRR, No concerning murmurs R: LCTA bilaterally without concerning findings Ab: soft, no ttp Ext: wwp, trace edema of ankles Skin: No concerning skin lesions or rashes on exposed skin Neuro: L sided weakness, per baseline Psych: Appropriate Const: Vital Signs, click to edit/add: Vital Signs - 24 hr 07/06/23 01:33 07/06/23 01:45 07/06/23 01:46 Temperature 97.4 F L Pulse Rate 99 101 H Pulse Rate [Pulse Oximeter] Respiratory Rate Blood Pressure 114/75 Blood Pressure [Ri ght Arm] Pulse Oximetry 96 95 Oxygen Delivery Me thod Room Air 07/06/23 01:47 07/06/23 02:00 07/06/23 02:02 Temperature Pulse Rate 98 100 96 Pulse Rate [Pulse Oximeter] Respiratory Rate Blood Pressure 95/69 Blood Pressure [Ri ght Arm] Pulse Oximetry 95 94 94 Oxygen Delivery Me thod 07/06/23 02:15 07/06/23 02:22 07/06/23 02:30 Temperature Pulse Rate 97 97 96 Pulse Rate [Pulse Oximeter] Respiratory Rate Blood Pressure 91/60 Blood Pressure [Ri ght Arm] Pulse Oximetry 92 92 91 Oxygen Delivery Me thod 07/06/23 02:42 07/06/23 02:45 07/06/23 02:47 Temperature Pulse Rate 94 95 93 Pulse Rate [Pulse Oximeter] Respiratory Rate Blood Pressure 88/56 L 94/59 L Blood Pressure [Ri ght Arm] Pulse Oximetry 92 91 91 Oxygen Delivery Me thod 07/06/23 02:48 07/06/23 03:00 07/06/23 03:30 Temperature Pulse Rate 94 94 92 Pulse Rate [Pulse Oximeter] Respiratory Rate Blood Pressure Blood Pressure [Ri ght Arm] Pulse Oximetry 92 91 95 Oxygen Delivery Me thod 07/06/23 03:42 07/06/23 03:45 07/06/23 04:00 Temperature Pulse Rate 90 91 92 Pulse Rate [Pulse Oximeter] Respiratory Rate Blood Pressure 96/61 Blood Pressure [Ri ght Arm] Pulse Oximetry 92 92 92 Oxygen Delivery Me thod 07/06/23 04:02 07/06/23 04:15 07/06/23 04:22 Temperature Pulse Rate 92 90 89 Pulse Rate [Pulse Oximeter] Respiratory Rate Blood Pressure 89/63 L 88/61 L Blood Pressure [Ri ght Arm] Pulse Oximetry 92 93 94 Oxygen Delivery Me thod 07/06/23 04:30 07/06/23 04:41 07/06/23 05:50 Temperature 97.5 F L Pulse Rate 89 93 Pulse Rate [Pulse Oximeter] 90 Respiratory Rate 16 Blood Pressure 98/63 Blood Pressure [Ri ght Arm] 104/73 Pulse Oximetry 92 93 98 Oxygen Delivery Me thod Room Air 07/06/23 05:50 07/06/23 07:00 Temperature Pulse Rate Pulse Rate [Pulse Oximeter] 86 Respiratory Rate 18 Blood Pressure Blood Pressure [Ri ght Arm] 115/79 Pulse Oximetry 98 96 Oxygen Delivery Me thod Room Air Room Air Labs Labs: Laboratory Results - last 24 hr 04/01/24 04/01/24 04/01/24 01:29 01:54 01:54 WBC 17.10 H RBC 5.23 Hgb 15.3 Hct 45.1 MCV 86 MCH 29 MCHC 34 RDW Coeff of Kenneth 12.7 Plt Count 198 Neut % (Auto) 75.0 H Lymph % (Auto) 12.9 L [place] % (Auto) 10.3 Eos % (Auto) 0.6 Baso % (Auto) 0.1 Neut # (Auto) 12.80 H Lymph # (Auto) 2.20 [place] # (Auto) 1.80 H Eos # (Auto) 0.10 Baso # (Auto) 0.00 Abs Immat Gran (auto) 0.20 Imm/Tot Granulo (auto) 1.1 VBG pH VBG pCO2 VBG pO2 VBG HCO3 Sodium 141 Potassium 2.6 L* Chloride 107 Carbon Dioxide 19 L Anion Gap 15 BUN 21 Creatinine 0.7 Estimated GFR 106 Glucose 83 Lactate 6.6 H* Calcium 9.3 Magnesium Total Bilirubin 0.3 AST 24 ALT 31 Alkaline Phosphatase 95 C-Reactive Protein < 0.5 L Cancelled Total Protein 6.5 Albumin 3.9 Lipase 164 Urine Color Yellow Urine Appearance Clear Urine pH 5.0 Ur Specific [place] 1.015 Urine Protein Trace A Urine Glucose (UA) 2+ A Urine Ketones Trace A Urine Blood Negative Urine Nitrite Negative Urine Bilirubin Negative Urine Urobilinogen 0.2 Ur Leukocyte Esterase Negative Urine RBC 0-2 Urine WBC 0-2 Ur Squamous Epith Cells Few Urine Bacteria Few A Ethyl Alcohol < 0.01 L SARS-CoV-2 (PCR) Negative SARS-CoV-2 Influenza Type A (PCR) Negative PCR FLU A Influenza Type B (PCR) Negative PCR FLU B RSV (PCR) Negative PCR RSV POC Troponin I 0.01 07/06/23 07/06/23 07/06/23 04:09 04:10 08:58 WBC RBC Hgb Hct MCV MCH MCHC RDW Coeff of Kenneth Plt Count Neut % (Auto) Lymph % (Auto) [place] % (Auto) Eos % (Auto) Baso % (Auto) Neut # (Auto) Lymph # (Auto) [place] # (Auto) Eos # (Auto) Baso # (Auto) Abs Immat Gran (auto) Imm/Tot Granulo (auto) VBG pH 7.353 7.367 VBG pCO2 44 46 VBG pO2 62.0 H 34.4 VBG HCO3 25 26 Sodium Potassium 3.0 L Chloride Carbon Dioxide Anion Gap BUN Creatinine Estimated GFR Glucose Lactate 4.2 H* 2.2 H Calcium Magnesium 1.7 Total Bilirubin AST ALT Alkaline Phosphatase C-Reactive Protein Total Protein Albumin Lipase Urine Color Urine Appearance Urine pH Ur Specific [place] Urine Protein Urine Glucose (UA) Urine Ketones Urine Blood Urine Nitrite Urine Bilirubin Urine Urobilinogen Ur Leukocyte Esterase Urine RBC Urine WBC Ur Squamous Epith Cells Urine Bacteria Ethyl Alcohol SARS-CoV-2 (PCR) Influenza Type A (PCR) Influenza Type B (PCR) RSV (PCR) POC Troponin I
[2023-07-06 09:27] LABS: Chloride* 108 mmol/L (96-114); Potassium* 4.1 mmol/L (3.6-5.1); Sodium* 139 mmol/L (135-149)
[2023-07-06 09:30] LABS: Anion Gap 8 mEq/L (7-15); Blood Urea Nitrogen* 17 mg/dL (7-30); Carbon Dioxide* 23 mmol/L (20-32); Creatinine* 0.5 mg/dL (0.5-1.5); Est. Creatinine Clearance* 148.73; Estimated Glomerular Filt Rate 117 ml/min
[2023-07-06 09:31] LABS: Calcium* 8.8 mg/dL (8.4-10.6); Glucose* 160 mg/dL (60-115)
[2023-07-06] MEDS: INSULIN PROT/ASP (NOVOLOG 70/30) 100 UNIT/ML 50 UNIT SUBCUT ×2 (10:59→18:32)
[2023-07-06] MEDS: INSULIN ASPART 100 UNIT/ML SUBCUT ×3 (11:00→21:06)
--- NOTE | 2023-07-06 14:09 | NUTR.NU ---
Addendum entered and electronically signed by Saima Garg RD 07/06/23 14:16: Patient admitted with AMS in setting of poorly controlled diabetes mellitus type 2. Original Note: RDN with diet education related to history of diabetes. Patient admitted for AMS, found to be dehydrated with gastroenteritis. Current weight is 157lb 12.8oz; height 5ft 7in; BMI is 24.7 kg/m2. Current diet is regular. Meal intakes have been 100% since admit. RDN visited with patient whom reports a good appetite. He reports he is allowed 60 grams of carbohydrates per meal. He ordered a fish sandwich, cottage cheese, green beans and 2 milks for lunch. He does not follow a diet at home. RDN offered diet education to patient, however he declined. He has an appointment is a Dietitian in [place] on July 14. Patient did accept educational materials related to diabetic diet, and RDN's contact information was provided. Patient was encouraged to call with questions. Patient declined changing diet to diabetic at this time. RDN to continue to monitor and follow-up prn.
--- NOTE | 2023-07-06 14:24 | PC.NURSE ---
End of shift [id number]: Pt is A&O x4, afebrile and VSS. Pt is SBA to independent with a cane in his room. He denies having any nausea, pain or dyspnea today. Notable left sided deficit from h/o CVA, limb restriction band in place. PIV in right AC SL and C/D/I. IVF with K+ discontinued today. Pt reported to life insurance underwriter that he is diabetic and uses insulin at home; ACHS checks and insulin initiated. AM blood sugar: 313 (after breakfast) > SS 4 units Novolog and scheduled 50 units of 70/30 administered per JUN. Noon blood sugar: 277; no insulin scheduled at this time d/t receiving breakfast dose late at 1100. Pt did not have a BM today and denies any issues with urination. Lactate down to 2.2 and Potassium WNL at 4.1. Pt?s S/O Ale was at bedside during MD rounding this morning. Plan to discharge home tomorrow afternoon, 07/06. ?
[2023-07-06] MEDS: MIRTAZAPINE 15 MG TABLET PO (21:06)
[2023-07-06] MEDS: ATORVASTATIN CALCIUM 40 MG TABLET PO (21:06)
[2023-07-07 02:46] VITALS: RESP 16
[2023-07-07] MEDS: TAMSULOSIN HCL 0.4 MG CAPSULE PO (06:11)
[2023-07-07 06:15] VITALS: BP 100/81; PULSE 85; RESP 16; TEMP 36.6; O2SAT 95
[2023-07-07 06:25] LABS: HCO3 VBG 27 mmol/L (21-28); PCO2 VBG 42 mmHG (40-50); PO2 VBG 64.2 mmHG (25-47)
[2023-07-07 06:32] LABS: Basophils Absolute Auto 0.01 K/uL (0.00-0.30); Basophils Percent Auto 0.1 % (0.0-3.0); Eosinophils Absolute Auto 0.23 K/uL (0.00-0.50); Eosinophils Percent Auto 3.2 % (0.0-7.0); Hematocrit 41.2 % (37.0-53.0); Hemoglobin* 13.7 gm/dL (13.5-17.5); Immature Granulocytes Abs Auto 0.03 K/uL (0.00-0.30); Immature Granulocytes Pct Auto 0.4 %; Lymphocytes Percent Auto 44.9 % (20-44); Mean Corpuscular HGB Conc 33 gm/dL (32-36); Mean Corpuscular Hemoglobin 29 pg (26-34); Mean Corpuscular Volume 88 fL (80-100); Monocytes Percent Auto 7.5 % (0.0-11.0); Neutrophils Absolute Auto 3.16 K/uL (1.7-7.0); Neutrophils Percent Auto 43.9 % (42.0-72.0); Platelet Count* 153 K/uL (140-440); RDW Coefficient of Variation % 13.1 % (11.5-15.5); Red Blood Count 4.68 m/uL (4.30-5.90); White Blood Count* 7.21 K/uL (4.50-11.00)
[2023-07-07 06:47] LABS: Slide Review Reflex No
[2023-07-07 06:55] LABS: Chloride* 108 mmol/L (96-114); Potassium* 4.4 mmol/L (3.6-5.1); Sodium* 136 mmol/L (135-149)
[2023-07-07 06:58] LABS: Anion Gap 2 mEq/L (7-15); Blood Urea Nitrogen* 20 mg/dL (7-30); Calcium* 8.7 mg/dL (8.4-10.6); Carbon Dioxide* 26 mmol/L (20-32); Creatinine* 0.6 mg/dL (0.5-1.5); Est. Creatinine Clearance* 123.94; Estimated Glomerular Filt Rate 111 ml/min; Glucose* 318 mg/dL (60-115)
[2023-07-07] MEDS: INSULIN ASPART 100 UNIT/ML SUBCUT (08:42)
[2023-07-07] MEDS: INSULIN PROT/ASP (NOVOLOG 70/30) 100 UNIT/ML 50 UNIT SUBCUT (08:43)
[2023-07-07] MEDS: PREGABALIN 100 MG CAPSULE 300 MG PO (08:44)
[2023-07-07] MEDS: SODIUM CHLORIDE 0.9 % (FLUSH) 10 ML SYRINGE 5 ML IVF (08:44)
[2023-07-07] MEDS: CLOPIDOGREL 75 MG TABLET PO (08:45)
[2023-07-07] MEDS: FLUOXETINE HCL 20 MG CAPSULE 40 MG PO (08:45)
[2023-07-07] MEDS: LOSARTAN POTASSIUM 50 MG TABLET 25 MG PO (08:45)
[2023-07-07] MEDS: carvediloL 6.25 MG TABLET 12.5 MG PO (08:45)
[2023-07-07] MEDS: DIVALPROEX DELAYED RELEASE 250 MG TABLET 500 MG PO (08:45)
--- NOTE | 2023-07-07 09:21 | P.DS_ITS ---
DS: Providers Provider Date Seen: 07/07/23 Date of admission: 07/06/23 05:22 Primary care physician: Dr. Amanda Aguirre in [place], [place] Admitting Clinician: Yumiko Yuan MD Consults: OT and PT Attending Physician on discharge: Yumiko Yuan MD Date of Discharge: 07/07/23 DS: Diagnosis Discharge Diagnosis (1) Acute dehydration: Status: Acute Problem details: - resolved during stay, able to tolerate po intake with resolution of lactic acidosis and hypokalemia - no further vomiting during stay (2) Gastroenteritis: Status: Acute Problem details: - enteritis on initial imaging, significant clinical improvement on hopsital day 1 - no further vomiting, tolerating po intake (3) Insulin dependent diabetes mellitus: Status: Acute Problem details: - last A1C 13.7, blood sugars during stay 195-300s - endorses poor compliance with medication/diet recently - has f/u scheduled with Quality Control Supervisor and dietitian (4) Weakness: Status: Acute Problem details: - therapies followed, no ongoing needs identified. Symptoms resolved during stay (5) Hypokalemia: Status: Acute Problem details: - noted on admission, resolved 07/05, tolerating po intake upon discharge (6) Leukocytosis: Status: Acute Problem details: - likely viral/reactive; afebrile, no hypotension or tachycardia. Normalized on day of discharge (7) Lactic acid acidosis: Status: Acute Problem details: - normalized during stay DS: Summary Hospital Course Hospital Course: Von was admitted to the hospital on 07/05 for weakness and vomiting. Admission imaging revealed an enteritis, labs revealed an elevated lactate and hypokalemia. Patient improved during stay, tolerating po intake, labs normalized. He was appropriate for discharge home on 07/06. Diabetes noted to be poorly controlled; recent A1c 13.7. Sugars elevated during stay, patient met with our dietitian. He admits to not following a diabetic diet and not taking his insulin recently. Upon discharge, he will restart his 70/30 at 50 units b.i.d.; he also asked for refill of Levemir (in the past, was taking 10 units at HS) upon discharge. Follow-up appointments made with PCP, dietitian, student records coordinator. Status at Discharge Functional status at discharge: uses cane/walker Overall status at discharge: patient is back to baseline Time Spent with Patient Time attestation: Total time spent providing and/or coordinating discharge services: Time spent: Greater than 30 minutes Specific discharge activities: Medication reconciliation, patient education Exam Narrative: Exam Narrative: GEN: Alert and oriented, sitting comfortably in bedside chair and eating breakfast HEENT: EOMIs bilaterally, no scleral icterus CV: RRR, No concerning murmurs R: LCTA bilaterally Ext: wwp, no concerning edema Skin: No concerning skin lesions or rashes on exposed skin Neuro: L sided weakness, baseline per previous CVA Psych: Appropriate Const: Vital Signs, click to edit/add: Vital Signs - 24 hr 07/06/23 11:00 07/06/23 15:00 07/06/23 19:00 Temperature 97.7 F 98.0 F 98.0 F Pulse Rate [Pulse Oximeter] 88 84 97 Respiratory Rate 18 16 16 Blood Pressure [Ri ght Arm] 96/69 94/61 113/85 Pulse Oximetry 97 98 98 Oxygen Delivery Me thod Room Air Room Air Room Air 07/06/23 22:47 07/06/23 22:47 07/07/23 02:46 Temperature 98.8 F Pulse Rate [Pulse Oximeter] 62 Respiratory Rate 16 16 16 Blood Pressure [Ri ght Arm] 132/68 Pulse Oximetry 93 Oxygen Delivery Me thod Room Air 07/07/23 06:15 Temperature 97.8 F Pulse Rate [Pulse Oximeter] 85 Respiratory Rate 16 Blood Pressure [Ri ght Arm] 100/81 Pulse Oximetry 95 Oxygen Delivery Me thod Room Air DS: Data Data Completed and Pending Labs on day of discharge: Labs from last 24 hours 07/07/23 07/06/23 06:11 08:58 WBC 7.21 RBC 4.68 Hgb 13.7 Hct 41.2 MCV 88 MCH 29 MCHC 33 RDW Coeff of Kenneth 13.1 Plt Count 153 Neut % (Auto) 43.9 Lymph % (Auto) 44.9 H [place] % (Auto) 7.5 Eos % (Auto) 3.2 Baso % (Auto) 0.1 Neut # (Auto) 3.16 Lymph # (Auto) 3.20 H [place] # (Auto) 0.50 Eos # (Auto) 0.23 Baso # (Auto) 0.01 Abs Immat Gran (auto) 0.03 Imm/Tot Granulo (auto) 0.4 VBG pH 7.420 VBG pCO2 42 VBG pO2 64.2 H VBG HCO3 27 Sodium 136 139 Potassium 4.4 4.1 Chloride 108 108 Carbon Dioxide 26 23 Anion Gap 2 L 8 BUN 20 17 Creatinine 0.6 0.5 Estimated Creat Clear 123.94 148.73 Estimated GFR 111 117 Glucose 318 H 160 H Calcium 8.7 8.8 Preliminary micro results at discharge 07/06/23 Unknown Urine Culture - Preliminary Urine,Clean Catch NO GROWTH AFTER 24 HOURS Discharge Plan Discharge Disposition: Home, Self-Care Date of Admission: 07/06/23 05:22 Attending Provider on Discharge: Sammie Crouch Primary Care Provider: Provider,Not a Local Condition: Improved Anticipated Discharge Date/Time: 07/07/23 09:17 Discharge Medications: New Levemir FlexPen 100 unit/mL (3 mL) insulin pen 10 unit subcut QHS Qty: 15 0RF Continued carvedilol 12.5 mg tablet 12.5 mg PO DAILY metformin 500 mg tablet extended release 24 hr 1,000 mg PO BID divalproex 500 mg tablet,delayed release (DR/EC) 500 mg PO Q12H clopidogrel 75 mg tablet 75 mg PO DAILY atorvastatin 40 mg tablet 40 mg PO HS pregabalin 300 mg capsule 300 mg PO Q12H losartan 25 mg tablet 25 mg PO DAILY tamsulosin 0.4 mg capsule 0.4 mg PO Q24H Novolin 70-30 FlexPen U-100 100 unit/mL (70-30) insulin pen 50 unit subcut BID fluoxetine 40 mg capsule 40 mg PO DAILY mirtazapine 30 mg tablet 30 mg PO HS nitroglycerin 0.4 mg tablet, sublingual 0.4 mg sublingual Q5M PRN Discharge Orders: Discharge Order (Routine); Ordered 07/07/23 Ordered By: Sammie Crouch Additional Instructions: Continue your 70/30 insulin (50U twice/day) and continue your Levemir 10U at bedtime. New prescription for Levemir sent to [facility]. Stay on the rest of your other medications. Check your Blood Sugar every morning and after each meal so you can bring those numbers to your followup appointments with the Dietitian and Dr. Aguirre. Make sure you're adding Protein and Fat to your carbs and try to not drink ANY regular pop. Activity Level: Activity as Tolerated Discharge Diet: Diabetic Follow Up Appointments: Lincoln Hanna DO [Referring] - Provider,Not a Local [Primary Care Provider] - (Please make a hospital f/u appt for patient with his PCP (Dr. Amanda Aguirre) at [facility] in [place] within 7-10 days.) Forms: makeena Info Instructions
[2023-07-07 10:19] VITALS: BP 108/70; PULSE 83; RESP 18; TEMP 36.7; O2SAT 97
--- NOTE | 2023-07-07 10:36 | PC.NURSE ---
Pt alert and oriented. VSS. Pt had no complaints of pain. IV removed; catheter intact. Pt discharging home with girlfriend and will be picked up by DIL.?Discharge instructions done with Pt.
== END 2023-07-07 10:40 | disposition home or self-care (01) ==
LOC: ED 02:09 → MEDSURG 05:23
PROVIDERS: Family Medicine; Internal Medicine; Admitting Provider Family Medicine; Emergency Provider Family Medicine; Visit Provider Family Medicine
DX: E87.6 Hypokalemia (principal); R53.1 Weakness; K52.9 Noninfective gastroenteritis and colitis, unspecified; E86.0 Dehydration; R41.82 Altered mental status, unspecified; E87.20 Acidosis, unspecified; R74.02 Elevation of levels of lactic acid dehydrogenase [LDH]; D72.829 Elevated white blood cell count, unspecified; R29.818 Other symptoms and signs involving the nervous system; R94.31 Abnormal electrocardiogram [ECG] [EKG]; R10.9 Unspecified abdominal pain; I10 Essential (primary) hypertension; E11.9 Type 2 diabetes mellitus without complications; N40.0 Benign prostatic hyperplasia without lower urinary tract symptoms; E78.5 Hyperlipidemia, unspecified; R11.10 Vomiting, unspecified; Z79.4 Long term (current) use of insulin; Z79.84 Long term (current) use of oral hypoglycemic drugs; Z87.891 Personal history of nicotine dependence; Z86.73 Personal history of transient ischemic attack (TIA), and cerebral infarction without residual deficits
CPT/HCPCS: 36415; 70450; 71260; 74177; 80048; 80053; 81001; 81003; 82077; 82803; 82962; 83605; 83690; 83735; 84132; 84484; 85025; 86140; 87086; 87631; 93005; 96361; 96365; 96366; 96367; 96372; 96375; 97116; 97161; 97165; 97535; 99284; 99291; A9270; G0378; J2405; J3480; J7030; Q9967

== ENCOUNTER 2023-09-09 15:57 | Emergency (ER) | payer MEDICARE, SELFPAY ==
[2023-09-09] VITALS (33 sets, daily range): BP systolic 90–131; BP diastolic 66–92; PULSE 80–93; RESP 18; TEMP 36.8; O2SAT 92–98; BMI 26.3
--- NOTE | 2023-09-09 16:06 | ED.GENADULT ---
HPI - General Adult General Date Seen: 09/09/23 Chief complaint: Neuro Symptoms/Altered Deficit Stated complaint: slurring words, stumbling Time Seen by Provider: 09/09/23 16:03 History of Present Illness HPI narrative: 57-year-old male with a history of previous stroke (apparently has chronic left-sided weakness), hyperlipidemia, hypertension history of diabetes (), history of Bj gangrene. Most recent visit to the hospital was in July, over 2 months ago. At that time med list included Atorvastatin Carvedilol Plavix Depakote Fluoxetine Losartan Mirtazapine Pregabalin Tamsulosin Insulin detmer FlexPen Metformin-patient says he found out that metformin ?attacks your kidneys? so he stopped taking it. Patient reports that he has a previous stroke that occurred about 3 and half years ago. He was initially diagnosed at a hospital in [place] he was transferred to [facility] for stroke care. He has chronic left sided weakness and numbness as well as chronic left facial droop and chronic trouble swallowing after the stroke. He is on Plavix for secondary prophylaxis but is not on aspirin due to allergy. He says he has a lot of trouble moving his left leg so he tripped and stumbled a lot. However he does not want to use a walker or a cane or wheelchair. History is obtained from the patient and his . When he woke up yesterday morning, at around 7:00 a.m. he had symptoms. These included worsening left facial droop, new drooling from the left side of his mouth, slurred speech, as well as 1 acute on chronic numbness affecting his left arm (and may be his left leg, 2). His noticed the slurred speech and drooling and tried to encourage him to come to the doctor yesterday. However he refused. Yesterday afternoon the symptoms actually got better. He seemed to be back to his normal state of health yesterday evening. He says the symptoms probably came back sometime overnight. He was laying awake, worried about his blood sugar. He for sure they were back this morning when he woke up at about 7:00 a.m.. He is feeling slurred speech, left facial droop, and acute on chronic left-sided numbness and weakness. No headache. No blurry vision. No nausea or vomiting. No chest pain or palpitations lately. He does recall that he had ?a couple? episodes of chest pain over a month ago. No cough. No trouble breathing. His blood sugar is 350. Related Data Home Medications ?Medication ?Instructions ?Recorded ?Confirmed atorvastatin 40 mg tablet 40 mg PO HS 04/28/22 07/06/23 carvedilol 12.5 mg tablet 12.5 mg PO DAILY 04/28/22 07/06/23 clopidogrel 75 mg tablet 75 mg PO DAILY 04/28/22 07/06/23 divalproex 500 mg tablet,delayed 500 mg PO Q12H 04/28/22 07/06/23 release losartan 25 mg tablet 25 mg PO DAILY 04/28/22 07/06/23 metformin 500 mg tablet,extended 1,000 mg PO BID 04/28/22 07/06/23 release 24 hr pregabalin 300 mg capsule 300 mg PO Q12H 04/28/22 07/06/23 tamsulosin 0.4 mg capsule 0.4 mg PO Q24H 04/28/22 07/06/23 fluoxetine 40 mg capsule 40 mg PO DAILY 07/06/23 07/06/23 insulin NPH-regular 70-30 U-100 50 unit subcut BID 07/06/23 07/06/23 insulin 100 unit/mL subcutaneous pen (Novolin 70-30 FlexPen U-100 Insulin) mirtazapine 30 mg tablet 30 mg PO HS 07/06/23 07/06/23 nitroglycerin 0.4 mg sublingual 0.4 mg sublingual Q5M PRN 07/06/23 07/06/23 tablet Previous Rx's ?Medication ?Instructions ?Recorded insulin detemir U-100 100 unit/mL 10 unit (0.1 mL) subcut QHS #15 mL 07/07/23 (3 mL) subcutaneous pen (Levemir FlexPen) Allergies Allergy/AdvReac Type Severity Reaction Status Date / Time aspirin Allergy Verified 09/09/23 17:15 [facility] Medical History (Updated 09/09/23 @ 19:47 by Rene Asif MD) Insulin dependent diabetes mellitus Smoker ?F17.200 - Nicotine dependence, unspecified, uncomplicated (ICD-10) Diabetic neuropathy ?E11.40 - Type 2 diabetes mellitus with diabetic neuropathy, unspecified (ICD-10) Peripheral neuropathy ?G62.9 - Polyneuropathy, unspecified (ICD-10) BPH (benign prostatic hyperplasia) ?N40.0 - Benign prostatic hyperplasia without lower urinary tract symptoms (ICD-10) Hyperlipidemia ?E78.5 - Hyperlipidemia, unspecified (ICD-10) Hypertension ?I10 - Essential (primary) hypertension (ICD-10) CVA (cerebral vascular accident) ?I63.9 - Cerebral infarction, unspecified (ICD-10) Surgical History (Updated 07/06/23 @ 10:07 by Sammie Crouch MD) S/P appendectomy ?Z90.49 - Acquired absence of other specified parts of digestive tract (ICD-10) S/P hernia repair ?Z98.890 - Other specified postprocedural states (ICD-10) ?Z87.19 - Personal history of other diseases of the digestive system (ICD-10) H/O: hemorrhoidectomy ?Z98.890 - Other specified postprocedural states (ICD-10) S/P cholecystectomy ?Z90.49 - Acquired absence of other specified parts of digestive tract (ICD-10) Family History Father Heart disease Mother Heart disease Social History What is your current living situation?: I presently have a place to live Problems where you live: no known problems Problems where you live details: NA In the past 12 months, utilities in danger of being shut off: no In past 12 months, lack of transportation kept you from medical appts, meetings, work, or getting things needed for daily living: no In the past 12 mos, have been you worried that your food would run out before you had money to buy more?: never true In the past 12 mos, the food you bought just didn't last and you didn't have money to buy more?: never true Smoking Status: Current every day smoker What tobacco products do you use: cigarettes Smoking packs per day: 1 Smoking cigarettes per day: 20.0 Years smoked: 49 Smoking pack-years: 49.00 Do you use any of these nicotine containing products: None Second hand tobacco smoke exposure: No How often do you have a drink containing alcohol: never How often do you have six or more drinks on one occasion: Never AUDIT-C Alcohol total score: 0 Non-prescribed substance use: denies use Caffeine: Yes (5-6 pops/day) How often does anyone, including family, friends and others, physically hurt you: never How often does anyone, including family, friends and others, insult or talk down to you: never How often does anyone, including family, friends and others, threaten you with harm: never How often does anyone, including family, friends and others, scream or curse at you: never service: No Exam Narrative: Exam Narrative: Primary Survey: A- patent. Speaking easily, but speech is subtly slurred. Phonation normal. No stridor. B- breathing easily. Lung sounds clear and equal. Oxygen saturation normal on room air C- no active bleeding. Blood pressure stable. Symmetric pulses and cap refill in 4 extremities. D- alert and oriented x3. GCS 15. Mental status normal. Attention normal. Alert and oriented x3. GCS 15. Memory normal. Speech slightly slurred. However speech is fluent.. Cognition normal. Cranial Nerves intact II-XII except for left-sided facial droop, leftward tongue deviation. I did not formally test gag or visual acuity. Visual becker are full to confrontation bilateral. He does have tongue deviation and left facial droop but no drooling. He is protecting his airway. EOMI. Strength: 5/5 strength on the right deltoid, biceps, triceps, cinema or theatre manager, thumb extension, finger abduction. Very weak on the left side. He is able lift his arm up against gravity and hold it for a few seconds. He is not able lift it up far enough to grab onto my fingers for cinema or theatre manager strength testing. I place my fingers into his palm for cinema or theatre manager strength any does have weak squeeze there. No thumb extension. No finger abduction. Sensation diminished on the left side. He is diminished in the left deltoid, dorsal 1-2 webspace, middle finger tip, 5th finger tip, and medial arm. All subjective paresthesias there. Also weak in the left leg. He is able to lift his left leg off the bed about 6 in and hold it for a few seconds against gravity. Limited flexion extension of the knee due to weakness. Weak plantar flexion and dorsiflexion of the ankle. decreased sensation in the entire left leg when compared to the right. NIHSS=10, but baseline NIHSS would be 6 Constitutional: Appears well-developed and well-nourished. Alert. Conversant. Non toxic. HENT: Head: Atraumatic. Nose: Nose normal. Mouth/Throat: Oral mucosa is clear and moist. no trismus. Pharynx normal. Tonsils symmetric. No tonsillar enlargement, erythema, or exudate. Eyes: Conjunctivae normal. EOM normal. Pupils equal, round, and reactive to light. No scleral icterus. Neck: Normal range of motion. Neck supple. No tracheal deviation present. Cardiovascular: Normal rate, regular rhythm. No gallop. No friction rub. No murmur heard. Symmetric radial and PT artery pulses Pulmonary/Chest: Effort normal. No stridor. No respiratory distress. No wheezes. No rales. No rhonchi . No tenderness. Abdominal: Soft. Bowel sounds normal. No distension. No mass. No tenderness. No rebound. No guarding. Musculoskeletal: RUE: Normal range of motion. No tenderness. No deformity LUE: Normal range of motion. No tenderness. No deformity RLE: Normal range of motion. No edema. No tenderness. No deformity LLE: Normal range of motion. No edema. No tenderness. No deformity Skin: Skin is warm and dry. No rash noted. No pallor. Normal capillary refill. Psychiatric: Normal mood. Normal affect. Const: Vital Signs, click to edit/add: Vital Signs - 24 hr 09/09/23 16:11 09/09/23 16:12 09/09/23 16:13 Temperature 98.3 F Pulse Rate 92 93 Pulse Rate [Pulse Oximeter] 93 Respiratory Rate 18 Blood Pressure 123/90 H Blood Pressure [Ri ght Upper Arm] 119/88 Pulse Oximetry 97 96 98 Oxygen Delivery Me thod Room Air 09/09/23 16:15 09/09/23 16:21 09/09/23 16:31 Temperature Pulse Rate 90 Pulse Rate [Pulse Oximeter] Respiratory Rate Blood Pressure 120/82 108/78 Blood Pressure [Ri ght Upper Arm] Pulse Oximetry 97 Oxygen Delivery Me thod 09/09/23 16:42 09/09/23 17:17 09/09/23 17:19 Temperature Pulse Rate 86 Pulse Rate [Pulse Oximeter] Respiratory Rate Blood Pressure 119/82 113/77 Blood Pressure [Ri ght Upper Arm] Pulse Oximetry 94 Oxygen Delivery Me thod 09/09/23 17:30 09/09/23 17:31 09/09/23 17:45 Temperature Pulse Rate 87 86 89 Pulse Rate [Pulse Oximeter] Respiratory Rate Blood Pressure 119/80 Blood Pressure [Ri ght Upper Arm] Pulse Oximetry 94 94 92 Oxygen Delivery Me thod 09/09/23 17:46 09/09/23 18:00 09/09/23 18:01 Temperature Pulse Rate 87 92 91 Pulse Rate [Pulse Oximeter] Respiratory Rate Blood Pressure 116/80 118/80 Blood Pressure [Ri ght Upper Arm] Pulse Oximetry 92 94 93 Oxygen Delivery Me thod 09/09/23 18:15 09/09/23 18:16 09/09/23 18:30 Temperature Pulse Rate 90 89 84 Pulse Rate [Pulse Oximeter] Respiratory Rate Blood Pressure 116/77 Blood Pressure [Ri ght Upper Arm] Pulse Oximetry 95 94 94 Oxygen Delivery Me thod 09/09/23 18:31 09/09/23 18:45 09/09/23 18:47 Temperature Pulse Rate 86 83 82 Pulse Rate [Pulse Oximeter] Respiratory Rate Blood Pressure 108/78 104/75 Blood Pressure [Ri ght Upper Arm] Pulse Oximetry 94 94 93 Oxygen Delivery Me thod 09/09/23 19:00 09/09/23 19:01 09/09/23 19:15 Temperature Pulse Rate 82 82 84 Pulse Rate [Pulse Oximeter] Respiratory Rate Blood Pressure 102/74 Blood Pressure [Ri ght Upper Arm] Pulse Oximetry 93 93 94 Oxygen Delivery Me thod 09/09/23 19:16 09/09/23 19:30 09/09/23 19:31 Temperature Pulse Rate 88 80 80 Pulse Rate [Pulse Oximeter] Respiratory Rate Blood Pressure 91/69 105/66 Blood Pressure [Ri ght Upper Arm] Pulse Oximetry 94 94 94 Oxygen Delivery Me thod 09/09/23 19:32 09/09/23 20:00 09/09/23 20:01 Temperature Pulse Rate 82 86 Pulse Rate [Pulse Oximeter] Respiratory Rate Blood Pressure 123/84 Blood Pressure [Ri ght Upper Arm] Pulse Oximetry 94 97 Oxygen Delivery Me thod 09/09/23 20:02 09/09/23 20:03 09/09/23 20:17 Temperature Pulse Rate 87 88 Pulse Rate [Pulse Oximeter] Respiratory Rate 18 Blood Pressure 90/79 131/92 H Blood Pressure [Ri ght Upper Arm] Pulse Oximetry 96 Oxygen Delivery Me thod Course Vital Signs Vital signs: Initial Vital Signs Pulse Rate 92 09/09/23 16:11 Blood Pressure 123/90 H 09/09/23 16:11 Blood Pressure Mean 101 09/09/23 16:11 Pulse Oximetry 97 09/09/23 16:11 Vital Signs Pulse Rate 92 09/09/23 16:11 Blood Pressure 123/90 H 09/09/23 16:11 Pulse Oximetry 97 09/09/23 16:11 Temperature 98.3 F 09/09/23 16:13 Pulse Rate 88 09/09/23 20:03 Respiratory Rate 18 09/09/23 20:02 Blood Pressure 131/92 H 09/09/23 20:17 Pulse Oximetry 96 09/09/23 20:03 Oxygen Delivery Method Room Air 09/09/23 16:13 Medications Administered Medications: Discontinued Medications Generic Name Dose Route Start Last Admin Trade Name Noam PRN Reason Stop Dose Admin Insulin Human Regular 10 unit 09/09/23 17:43 09/09/23 18:14 Insulin Regular 100 Unit/Ml Inj SUBCUT 09/09/23 17:44 10 unit ONCE ONE Administration Medical Decision Making [facility] Narrative Medical decision making narrative: 57-year-old gentleman with a history previous right MCA stroke with chronic left-sided weakness, some chronic dysphagia, presenting to the ER today with acute on chronic now worse weakness and numbness on his left arm and leg, new worsening facial droop, and trouble swallowing. New symptoms began yesterday morning when he woke up. 1. Neuro. Symptoms concerning for probable acute to subacute stroke. Since symptoms began yesterday when he woke up from sleep, he is outside the window for IV tPA or intra-arterial intervention. Although symptoms have been waxing and waning since yesterday, his last known well time was yesterday morning. Therefore we did not activate a stroke team call down. We did do stroke workup though with CT head (showing no acute intracranial hemorrhage) and CT angiogram. We also consulted with Stroke Neurology from [place]. They would recommend that we arrange transfer to [place]. Patient may need MRI and may need EEG to evaluate for some seizure activity in the area of his previous stroke that could be causing his waxing and waning symptoms. Depakote level is pending. Patient was reluctant to come to the ER in the 1st place. We will discuss transfer he was initially resistant. His was encouraging to transfer, as were his children. Nonetheless the patient was. Early refusing transferred. Discussed with our hospitalist Dr. Kiran. She also strongly recommends transfer if that the advice of Stroke Neurology. Ultimately patient would agree to transfer. He was transferred by EMS to [facility]. Unfortunately there are no open beds on the floor. Since the patient needs MRI and possibly EEG tonight, he has accepted to the ER at [place]. Dr. Soliman accepting. He was already on Plavix for stroke prophylaxis. He is allergic to aspirin. Blood pressure normal. Blood sugars elevated. No hypoglycemia. Sodium normal. Other laboratory workup shows no clear evidence for another metabolic or infectious process worsening his chronic stroke symptoms. 2. Endocrine. Has a history of diabetes. Patient says he stopped taking his metformin because he thought the metformin was bad for his kidneys. Does have hyperglycemic here with a sugar initially at 3:50 a.m. and then on his BMP 407. Anion gap is normal. No evidence for DKA or nonketotic hyperosmolar syndrome. Treated with subcutaneous insulin. After this blood sugar was trending down on his continuous glucose monitor from around 400 to around 300. 3. Cardiac. EKG shows sinus rhythm. No chest pain or palpitations. He did have some chest pain about a month ago. Screening troponin today is negative. 4. Pulmonary. Lung sounds clear and equal. No wheezing. No bronchospasm. No difficulty breathing. Oxygen normal. Lab Data Labs: Lab Results 09/09/23 Range/Units 16:48 WBC 6.37 (4.50-11.00) K/uL RBC 5.12 (4.30-5.90) m/uL Hgb 15.0 (13.5-17.5) gm/dL Hct 45.5 (37.0-53.0) % MCV 89 (80-100) fL MCH 29 (26-34) pg MCHC 33 (32-36) gm/dL RDW Coeff of Kenneth 12.8 (11.5-15.5) % Plt Count 173 (140-440) K/uL Neut % (Auto) 49.6 (42.0-72.0) % Lymph % (Auto) 38.8 (20-44) % Morrill % (Auto) 6.6 (0.0-11.0) % Eos % (Auto) 4.2 (0.0-7.0) % Baso % (Auto) 0.5 (0.0-3.0) % Neut # (Auto) 3.16 (1.7-7.0) K/uL Lymph # (Auto) 2.47 (0.90-2.90) K/uL Morrill # (Auto) 0.40 (0.00-0.90) K/UL Eos # (Auto) 0.27 (0.00-0.50) K/uL Baso # (Auto) 0.03 (0.00-0.30) K/uL Abs Immat Gran (auto) 0.02 (0.00-0.30) K/uL Imm/Tot Granulo (auto) 0.3 % INR 0.85 L (0.91-1.10) Sodium 137 (135-149) mmol/L Potassium 4.6 (3.6-5.1) mmol/L Chloride 108 (96-114) mmol/L Carbon Dioxide 23 (20-32) mmol/L Anion Gap 6 L (7-15) mEq/L BUN 20 (7-30) mg/dL Creatinine 0.6 (0.5-1.5) mg/dL Estimated Creat Clear 119.63 Estimated GFR 111 ml/min Glucose 407 H* (60-115) mg/dL Calcium 8.2 L (8.4-10.6) mg/dL Troponin I < 0.01 L (0.01-0.04) ng/mL Imaging Data CTA head and neck: Radiologist's impression: Preliminary IMPRESSION: 1. Mild (<50%) atherosclerotic stenosis of the proximal left ICA by NASCET criteria. 2. Mild to moderate stenosis at the origin of the left vertebral artery. ECG Data Attestation: I personally reviewed and interpreted this ECG as follows: Interpretation: Normal sinus rhythm Rate: 90 MN: To a 6. First-degree AV block QRS axis: Left axis deviation. No pathologic Q-waves. ST segment/T wave: No ST segment elevation or depression QTc: 440 Discharge Plan Discharge Clinical Impression: Acute left-sided muscle weakness, Acute CVA (cerebrovascular accident) Patient Disposition: Xfer [facility] Prescriptions: No Action carvedilol 12.5 mg tablet 12.5 mg PO DAILY metformin 500 mg tablet extended release 24 hr 1,000 mg PO BID divalproex 500 mg tablet,delayed release (DR/EC) 500 mg PO Q12H clopidogrel 75 mg tablet 75 mg PO DAILY atorvastatin 40 mg tablet 40 mg PO HS pregabalin 300 mg capsule 300 mg PO Q12H losartan 25 mg tablet 25 mg PO DAILY tamsulosin 0.4 mg capsule 0.4 mg PO Q24H Novolin 70-30 FlexPen U-100 100 unit/mL (70-30) insulin pen 50 unit subcut BID fluoxetine 40 mg capsule 40 mg PO DAILY mirtazapine 30 mg tablet 30 mg PO HS nitroglycerin 0.4 mg tablet, sublingual 0.4 mg sublingual Q5M PRN Levemir FlexPen 100 unit/mL (3 mL) insulin pen 10 unit subcut QHS Qty: 15 0RF Stand Alone Forms: MyHealth Info Instructions
--- NOTE | 2023-09-09 16:37 | CRLHL7_ITS ---
For Patients: As a result of the Century Cures Act, medical imaging exams and procedure reports are released immediately into your electronic medical record. You may view this report before your referring provider. If you have questions, please contact your health care provider. CLINICAL HISTORY: Left-sided facial droop and left-sided weakness. TECHNIQUE: Standard helical CT image acquisition through the head was performed. COMPARISON: None available. FINDINGS: There is no CT evidence of acute intracranial hemorrhage, extra-axial collection, mass effect or midline shift. Moderate to large sized area of encephalomalacia with adjacent gliosis involving the right frontal and anterior parietal lobes as well as the subinsular white matter and lentiform nucleus in keeping with a chronic right MCA infarct. There is resulting ex vacuo dilatation of the frontal horn and anterior body of the right lateral ventricle. Superimposed patchy hypoattenuation in the white matter of both hemispheres likely reflect sequela of chronic small vessel ischemia. The calvarium is unremarkable. The orbits are unremarkable. The paranasal sinuses and mastoid air cells are well-aerated. IMPRESSION: 1. No CT evidence of acute intracranial abnormality. 2. Moderate to large volume chronic infarct in the distribution of the superior division of the right MCA, as above. Please note that all CT scans at this facility use dose modulation, iterative reconstruction, and/or weight-based dosing when appropriate to reduce radiation dose to as low as reasonably achievable. Dictated by Aly Galdamez MD @ 09/09/2023 5:43:34 PM (Electronically Signed)
--- NOTE | 2023-09-09 16:38 | CRLHL7_ITS ---
For Patients: As a result of the Century Cures Act, medical imaging exams and procedure reports are released immediately into your electronic medical record. You may view this report before your referring provider. If you have questions, please contact your health care provider. CLINICAL HISTORY: Left facial droop and left-sided weakness. TECHNIQUE: Standard helical CT image acquisition through the head following the administration of intravenous contrast was performed. 3D and MIP reconstructions were performed at a separate workstation and permanently archived. COMPARISON: None available. FINDINGS: No intracranial proximal large vessel occlusion or flow-limiting luminal stenosis. No evidence of cerebral aneurysm. No findings to suggest an arterial-venous shunting lesion. The major dural venous sinuses and deep venous system are patent. IMPRESSION: No intracranial proximal large vessel occlusion, flow-limiting luminal stenosis, or cerebral aneurysm. Please note that all CT scans at this facility use dose modulation, iterative reconstruction, and/or weight-based dosing when appropriate to reduce radiation dose to as low as reasonably achievable. Dictated by Aly Galdamez MD @ 09/09/2023 6:07:45 PM (Electronically Signed)
--- NOTE | 2023-09-09 16:38 | CRLHL7_ITS ---
For Patients: As a result of the Century Cures Act, medical imaging exams and procedure reports are released immediately into your electronic medical record. You may view this report before your referring provider. If you have questions, please contact your health care provider. CLINICAL HISTORY: Left-sided facial droop and left-sided weakness. TECHNIQUE: Standard helical CT image acquisition through the neck was performed after intravenous contrast bolus enhancement. 3D and MIP reconstructions were performed at a separate workstation and permanently archived. COMPARISON: None available. FINDINGS: The origins of the great vessels from the aortic arch are patent. The common carotid arteries are patent. Mild (<50%) atherosclerotic stenosis of the proximal left ICA by NASCET criteria. No significant stenosis of the proximal right ICA. The more distal cervical segments of the ICAs are patent. [id number] stenosis at the origin of the left vertebral artery. The origin of the right vertebral artery is patent. The more distal cervical segments of the vertebral arteries are patent. IMPRESSION: 1. Mild (<50%) atherosclerotic stenosis of the proximal left ICA by NASCET criteria. 2. Mild to moderate stenosis at the origin of the left vertebral artery. Please note that all CT scans at this facility use dose modulation, iterative reconstruction, and/or weight-based dosing when appropriate to reduce radiation dose to as low as reasonably achievable. Dictated by Aly Galdamez MD @ 09/09/2023 6:04:21 PM (Electronically Signed)
[2023-09-09 16:59] LABS: Basophils Absolute Auto 0.03 K/uL (0.00-0.30); Basophils Percent Auto 0.5 % (0.0-3.0); Eosinophils Absolute Auto 0.27 K/uL (0.00-0.50); Eosinophils Percent Auto 4.2 % (0.0-7.0); Hematocrit 45.5 % (37.0-53.0); Immature Granulocytes Abs Auto 0.02 K/uL (0.00-0.30); Immature Granulocytes Pct Auto 0.3 %; Lymphocytes Absolute Auto 2.47 K/uL (0.90-2.90); Lymphocytes Percent Auto 38.8 % (20-44); Mean Corpuscular HGB Conc 33 gm/dL (32-36); Mean Corpuscular Hemoglobin 29 pg (26-34); Mean Corpuscular Volume 89 fL (80-100); Monocytes Percent Auto 6.6 % (0.0-11.0); Neutrophils Absolute Auto 3.16 K/uL (1.7-7.0); Neutrophils Percent Auto 49.6 % (42.0-72.0); Platelet Count* 173 K/uL (140-440); RDW Coefficient of Variation % 12.8 % (11.5-15.5); Red Blood Count 5.12 m/uL (4.30-5.90); White Blood Count* 6.37 K/uL (4.50-11.00)
[2023-09-09 17:09] LABS: Slide Review Reflex No
[2023-09-09 17:17] LABS: Chloride* 108 mmol/L (96-114); INR 0.85 (0.91-1.10); Prothrombin Time 12.2 Seconds
[2023-09-09 17:18] LABS: Potassium* 4.6 mmol/L (3.6-5.1); Sodium* 137 mmol/L (135-149)
[2023-09-09 17:20] LABS: Creatinine* 0.6 mg/dL (0.5-1.5); Est. Creatinine Clearance* 119.63; Estimated Glomerular Filt Rate 111 ml/min
[2023-09-09 17:21] LABS: Anion Gap 6 mEq/L (7-15); Blood Urea Nitrogen* 20 mg/dL (7-30); Calcium* 8.2 mg/dL (8.4-10.6); Carbon Dioxide* 23 mmol/L (20-32)
--- OUTSIDE RECORDS SUMMARY | 2023-09-09 17:33 | XMS_ITS | Clinical Summary ---
Author Organization [facility] Address [place], [place] [address] Care Team Providers Care Telecom Engineer Name Role Phone Aidee Altman RN Unavailable Jono Roth MD Unavailable [phone] Nurses, Advanced Heart Failure Unavailable + Dipak Matute MD Unavailable [phone] Amanda Aguirre DO Primary Care Provider [phone] Allergies Active Allergy Reactions Criticality Noted Date Comments Aspirin Throat Swelling/Closing 07/08/2007 Venom-Honey Bee *Unknown 06/19/2011 Randall Pepper Throat Swelling/Closing 07/08/2007 Medications Medication Sig Dispensed Refills Start Date End Date Status nitroglycerin (NITROSTAT) 0.4 mg sublingual tabletIndications:A cute on chronic systolic congestive heart failure (HC) Place 1 Tablet (0.4 mg) under the tongue every 5 minutes if needed for Chest Pain (max 3 doses then call 911). 28 Tablet 5 06/02/2022 Active Insulin Marion, Disposable, (Mar Pen Needle) 32 gauge x /32Indications:Un controlled type 2 diabetes mellitus with hyperglycemia (HC) As directed. Use 4 times daily with insulin 400 Each 11 06/02/2022 Active blood sugar diagnostic (Accu-Chek Guide test strips) stripIndications:Un controlled type 2 diabetes mellitus with hyperglycemia (HC) Use to test blood glucose 4 times daily as directed. 400 Each 3 08/07/2022 Active Blood-Glucose MeterIndications:Un controlled type 2 diabetes mellitus with hyperglycemia (HC) Use to test blood glucose 4 times daily as directed. 1 Kit 08/07/2022 Active lancets (Accu-Chek Softclix Lancets)Indications :Uncontrolled type 2 diabetes mellitus with hyperglycemia (HC) Use to test blood glucose 4 times daily as directed. 400 Each 3 08/07/2022 Active losartan (COZAAR) 25 mg tabletIndications:S ystolic congestive heart failure, unspecified HF chronicity (HC) Take 1 Tablet (25 mg) by mouth once daily. 90 Tablet 3 08/21/2022 Active divalproex (DEPAKOTE) 500 mg Delayed-Release tabletIndications:U ncontrolled type 2 diabetes mellitus with hyperglycemia (HC) Take 1 Tablet (500 mg) by mouth two times daily. 180 Tablet 3 08/21/2022 Active carvediloL (COREG) 12.5 mg tabletIndications:S ystolic congestive heart failure, unspecified HF chronicity (HC),Borderline hypertension Take 2 Tablets (25 mg) by mouth two times daily with meals. 360 Tablet 3 08/21/2022 Active tamsulosin (FLOMAX) 0.4 mg capsuleIndications: BPH without urinary obstruction Take 1 Capsule (0.4 mg) by mouth once daily after a meal. 90 Capsule 3 2022 Active pregabalin (Lyrica) 300 mg capsuleIndications: Diabetes 1.5, managed as type 2 (HC) Take 1 Capsule (300 mg) by mouth two times daily. 180 Capsule 1 07/03/2023 Active atorvastatin (LIPITOR) 40 mg tabletIndications:C erebrovascular accident (CVA) due to thrombosis of right middle cerebral artery (HC) Take 1 Tablet (40 mg) by mouth at bedtime. 90 Tablet 1 07/24/2023 Active cholecalciferol (Vitamin D-3) 2,000 unit capsuleIndications: Vitamin D deficiency Take 1 Capsule (2,000 units) by mouth once daily. 100 Capsule 1 07/24/2023 Active clopidogreL (PLAVIX) 75 mg tabletIndications:C erebrovascular accident (CVA) due to thrombosis of right middle cerebral artery (HC) Take 1 Tablet (75 mg) by mouth once daily. 90 Tablet 1 07/24/2023 Active FLUoxetine (PROZAC) 40 mg capsuleIndications: Cerebrovascular accident (CVA) due to thrombosis of right middle cerebral artery (HC) Take 1 Capsule (40 mg) by mouth once daily. 90 Capsule 1 07/24/2023 Active FreeStyle Fatuma 3 [place] for continuous blood glucose monitor (CGM)Indications:di abetes mellitus Use per manufacturers directions 1 Each 07/24/2023 Active FreeStyle Fatuma 3 Sensor for continuous blood glucose monitor (CGM)Indications:di abetes mellitus Wear each for 14 days 6 Each 12 07/24/2023 Active magnesium oxide (MAG-OX 400) 400 mg tabletIndications:C hronic pain syndrome Take 1 Tablet (400 mg) by mouth once daily. Take 1 tablet 2 times daily for 14 days, THEN 1 tablet daily 90 Tablet 1 07/24/2023 Active metFORMIN (GLUCOPHAGE XR) 500 mg Extended-Release tabletIndications:T ype 2 diabetes mellitus without complication, with long-term current use of insulin (HC) Take 2 Tablets (1,000 mg) by mouth two times daily with meals. 360 Tablet 07/24/2023 Active mirtazapine (REMERON) 30 mg tabletIndications:D epression, unspecified depression type TAKE ONE TABLET BY MOUTH DAILY AT 9PM AT BEDTIME 90 Tablet 07/24/2023 Active insulin aspart, U-100, (NOVOLOG FLEXPEN) 100 unit/mL (3 mL) penIndications:Unco ntrolled type 2 diabetes mellitus with hyperglycemia (HC) Inject 15 units subcutaneous two times daily before meals. 9 mL 1 07/23/2023 Active insulin detemir U-100 (LEVEMIR) 100 unit/mL (3 mL) penIndications:Unco ntrolled type 2 diabetes mellitus with hyperglycemia (HC) Inject 20 units subcutaneous before bedtime. 07/27/2023 Active Lantus Solostar U-100 Insulin 100 unit/mL (3 mL) penIndications:Type 2 diabetes mellitus with hyperglycemia, with long-term current use of insulin (HC) Inject 20 units subcutaneous before bedtime. Product desired: LANTUS SOLOSTAR 18 mL 1 08/11/2023 Active Active Problems Problem Noted Date Diagnosed Date Type 2 diabetes mellitus wit h hyperglycemia, with long-term current use of insulin 08/11/2023 Systolic CHF 04/22/2020 Cerebrovascular accident (CV A) due to thrombosis of right middle cerebral artery 03/30/2020 Hemiparesis, left 03/29/2020 COPD (chronic obstructive pulmonary disease) Chronic cerebrovascular accident (CVA) 0 Overview: CT 03/29/2020 shows chronic R CVA Hemiplegia affecting nondominant side 03/29/2020 Tobacco abuse disorder 04/24/2016 Chronic pain syndrome 04/24/2016 Depression 04/24/2016 Polyneuropathy 03/18/2016 Diabetic nephropathy 01/31/2014 Pulmonary nodule 10/15/2012 Overview: 11 mm nodule right apex, follow up CT due 12/17, 06/17, 09/18. Diabetes mellitus type II, uncontrolled 08/27/19 13 Major depressive disorder, recurrent episode, mo derate 08/21/2012 Bee sting allergy 06/19/2011 History of bee sting allergy 04/06/2009 Mild intermittent asthma 07/08/2007 Borderline hypertension 07/08/2007 Hyperlipidemia associated with type 2 diabetes m ellitus Vitamin D deficiency GERD (gastroesophageal reflux disease) Resolved Problems Problem Noted Date Diagnosed Date Resolved Date Moderate protein-calorie mal nutrition (weight for age 60-74% of standard) 06/02/2022 07/16/2023 Pneumonia due to infectious organism 04/24/2016 06/08/2023 Chronic obstructive pulmonar y disease with acute exacerbation 04/24/2016 06/08/2023 Diabetes 04/24/2016 06/08/2023 Type 2 diabetes mellitus 02/25/2013 MAJOR DEPRESSION RECURRENT 0 05/25/2014 Encounters Date Type Department Care Team Description 08/27/[address] [phone] Lincoln Hanna, DO Refill Request (Fluoxetine) 08/11/[address] [phone] Amanda Aguirre, DO Letter 08/06/[address] [phone] Amanda Aguirre, DO Medication Management (insulin detemir U-100 (LEVEMIR) 100 unit/mL (3 mL) pen) 08/04/[address] [place] [address] Lincoln Hanna DO Refill Request (Fluoxetine) 07/27/2023 11:00 AM CDT Patient Outreach [address] [place] [address] Aidee Altman, pharmaceutical physician (CGM follow-up for insulin management) 07/27/2023 Travel 07/24/[address] [place] [address] Amanda Aguirre DO 07/23/[address] [place] [address] Amanda Aguirre DO Refill Request (Atorvastatin/Vitamin D 2000/Clopidogrel/Free style Fatuma sensors/Magnesium oxide/Metformin/Lilian zapine/) 07/21/[address] [place] [address] Amanda Aguirre, Results 07/16/2023 2:20 PM CDT Office Visit [address] [place] [address] Amanda Aguirre DO Hospital F/U (D/C 07/07/23, [facility], dehydration) 07/15/2023 3:00 PM CDT Patient Outreach [address] [phone] Aidee Altman, pharmaceutical physician (Help with getting CGM) 07/15/2023 Travel 07/07/[address] [place] [address] Lincoln Hanna DO Refill Request (Fluoxetine) 07/03/[address] [phone] Amanda Aguirre DO Medication Management (wrong pharmacy) 07/02/2023 4:25 PM CDT Office Visit [address] [phone] Amanda Aguirre DO Medication Management (Has been out of Lyrica for 3 months) 07/02/2023 Travel 06/22/2023 Refill [facility] [address] [facility] [address] [place] [address] Jono Roth MD Refill Request (pregabalin (Lyrica) 300 mg capsule) 06/19/[address] [phone] Amanda Aguirre DO Refill Request (mirtazapine (REMERON) 30 mg tablet) 06/18/[address] [address] Amanda Aguirre DO Prior Authorization (insulin aspart protamine-insulin aspart (Novolog Mix 70-30) 100 unit/mL (70-30) pen Approved June 16, 2023 to April 05, 2024) 06/16/[address] [phone] Amanda Aguirre DO Prior Authorization (FreeStyle Fatuma 3 [place] for continuous blood glucose monitor (CGM) Approved no dates given) 06/16/[address] [phone] Amanda Aguirre DO Prior Authorization (FreeStyle Fatuma 3 Sensor) 06/10/2023 2:[address] WAITER/WAITRESS Patient Outreach [address] [phone] Diabetes (DM education) 06/10/2023 Travel from Last 3 Months Immunizations Name Administration Dates Next Due Hepatitis B (Adult) 04/18/2014,11/28/2013,2012 Influenza Virus, Unspecified 03/08/2013 Influenza, IIV3 (Age >=3 years) 03/08/2013 Influenza, IIV4 03/05/2017 Influenza, ccIIV3 (Age >=18 Years) 03/06/2014 Pneumococcal Poly,23-Valent (Pneumovax) 07/08/19 08 Tdap 04/04/2019,07/08/2007 Family History Medical History Relation Name Comments Asthma Daughter 2 Good Health Father Hyperlipidemia Father Good Health Mother Heart Disease Paternal Uncle 1 Osteoporosis Paternal Uncle 2 Relation Name Status Comments Brother Alive Daughter 1 Alive Daughter 2 Father Alive Maternal Grandfather Maternal Grandmother Mother Alive Paternal Grandfather Paternal Grandmother Paternal Uncle 1 Paternal Uncle 2 Sister Alive Son 1 Alive Son 2 Alive Son 3 Alive Social History Tobacco Use Types Packs/Day Years Used Date Smoking Tobacco: Every Day Cigarettes 2 51.4 Started: 1972 Passive Smoke Exposure: Current Smokeless Tobacco: Never Tobacco Cessation:Ready to Q uit: Not Asked; Counseling Given: Not Answered Comments:started smoking at 7 years old Alcohol Use Standard Drinks/Week Comments Not Currently 0 (1 standard drink = 0.6 oz pure alcohol) very rare beer maybe once a year PHQ-2 Answer Date Recorded PHQ-2 TOTAL SCORE 2 08/21/2022 Social Connections Answer Date Recorded Frequency of Communication with Friends and Fami ly Not on file 04/06/2021 Financial Resource Strain Answer Date R ecorded Difficulty of Paying Living Expenses Not on file 04/06/2021 Difficulty of Paying Living Expenses Not on file 04/06/2021 Sex and Gender Information Value Date Recorded Sex Assigned at Not on file Gender Identity Not on file Sexual Orientation Not on file Obstetrics History Last Filed Vital Signs Vital Sign Reading Time Taken Comments Blood Pressure 112/80 07/16/2023 2:23 PM CDT Pulse 84 07/16/2023 2:23 PM CDT Temperature 34.8 ??C (94.6 ??F) 06/21/2020 3:18 PM CD T Respiratory Rate 12 07/16/2023 2:23 PM CDT Oxygen Saturation 96% 09/24/2022 3:09 PM CDT Inhaled Oxygen Concentration - - Weight 72.3 kg (159 lb 8 oz) 07/16/2023 2:23 PM CDT Height 166.4 cm (5' 5.5) 12/29/2022 1:30 PM CDT Body Mass Index 26.14 12/29/2022 1:30 PM CDT Plan of Treatment Upcoming Encounters Date Type Department Care Team (Late st Contact Info) Description 09/10/2023 1:00 PM CDT Patient Outreach [address] [phone] Aidee Altman RN [address] [place] [address] 2023 9:15 AM CDT Office Visit [address] [phone] Amanda Aguirre, [address] [address] 11/11/2023 12:10 PM CDT Office Visit [facility] [address] [facility] [address] [place] [address] Jono Roth MD [address] [facility] [address] [place] [address] 12/10/2023 3:35 PM CDT Office Visit [address] [phone] Amanda Aguirre, [address] [address] 03/16/2024 8:[address] WAITER/WAITRESS Office Visit [facility] [address] [place] [address] Hector Najera, PhD, [address] [place] [address] Health Maintenance Due Date Last Done Comments HIV for age 15-65 09/10/1978 Hepatitis C screening for ag e 18-79 09/10/1981 Pneumococcal series for age 6-64 (2 of 2 - PCV) 07/07/2008 07/08/[address] (for lung CA) ag e 50-80 09/10/2013 Zoster (shingles) series for age 50+ (1 of 2) 09/10/2013 COVID-19 vaccine series (3 - 2022- season) 2022 12/11/2020, 11/13/2020 Depression screening for age 12+ 08/22/2023 08/21/2022, 06/05/2022, 06/05/2022, Additional history exists Influenza for age 50-64 12/06/2023 03/05/20 17, 03/06/2014, 03/08/2013, Additional history exists BMI (ht and wt on same day) for age 18+ 12/30/2023 12/29/2022, 08/21/2022, 06/02/2022, Additional history exists Colonoscopy through age 75 03/16/2024 03/16/2014, Lipids for age 45-75 07/15/2028 07/16/2023, 06/19/2022, 03/30/2020, Additional history exists Tetanus booster 04/04/2029 04/04/2019, 07/08/2007 Hepatitis B series for Diabetes Completed 04/18/2014, 11/28/2013, 03/08/2013 Tdap Completed 04/04/2019, 07/08/2007 Procedures Procedure Name Priority Date/Time Associated Diagnosis Comments URINE ALBUMIN TO CREATININE RATIO, RANDOM Routine 07/16/2023 3:10 PM CDT Uncontrolled type 2 diabetes mellitus with hyperglycemia (HC) Diabetic nephropathy associated with type 2 diabetes mellitus (HC) LIPID PANEL W REFLEX MEASURED LDL Routine 07/16/2023 2:59 PM CDT Uncontrolled type 2 diabetes mellitus with hyperglycemia (HC) VITAMIN D 25 (DEFICIENCY) Routine 07/16/2023 2:59 PM CDT Vitamin D deficiency BASIC METABOLIC PANEL Routine 07/16/2023 2:59 PM CDT Uncontrolled type 2 diabetes mellitus with hyperglycemia (HC) HEMOGLOBIN A1C Routine 07/02/2023 5:24 PM CDT Uncontrolled type 2 diabetes mellitus with hyperglycemia (HC) COLONOSCOPY SCREENING Routine 03/16/2014 Colon cancer screening from Last 3 Months or Most Recently Relevant to Health Maintenance Results * (ABNORMAL) URINE ALBUMIN TO CREATININE RATIO, RANDOM (07/16/2023 3:10 PM CDT) ALB RAND URINE 97.1 mg/L 07/17/2023 1:34 PM CDT [facility] CREATININE,URIN E 0.60 g/L 07/17/2023 1:34 PM CDT [facility] ALBUMIN TO CREATININE RATIO,RAND UR 161.8(H) <30.0 mg/g creat 07/17/2023 1:34 PM CDT [facility] Urine URINE SPECIMEN / Unknown Non-Blood / Unknown 07/16/2023 3:10 PM CDT 07/16/2023 3:10 PM CDT Narrative [facility] - 07/17/2023 1:34 PM CDT If Albumin to Creatinine Ratio is elevated, consider the following: ? Elevations seen with incipient nephropathy associated ?? with diabetes mellitus or hypertension. Stress, exercise,hematuria, ?? and urinary tract infection may also produce elevated results. If clinically indicated, confirm with ?24 Hour Albumin to Creatinine Ratio. ?? Amanda Aguirre DO URINE [facility] [address] [place] [address], * (ABNORMAL) LIPID PANEL W REFLEX MEASURED LDL (07/16/2023 2:59 PM CDT) CHOLESTEROL,TOTAL 245(H) 100 - 199 mg/dL 07/16/2023 4:03 PM CDT [facility] Comment: Cholesterol, Total Reference Ranges Desirable <200 mg/dL Borderline 200-239 mg/dL High >=240 mg/dL TRIGLYCERIDES 237(H) <150 mg/dL 07/16/2023 4:03 PM CDT [facility] HDL CHOLESTEROL 56 >40 mg/dL 4:03 PM CDT [facility] NON-HDL CHOLESTEROL 189(H) <145 mg/dl 07/16/2023 4:03 PM CDT [facility] CHOL/HDL RATIO 4.38 <4.50 07/16/2023 4:03 PM CDT [facility] LDL CHOLESTEROL 142(H) <=130 mg/dL 07/16/2023 4:03 PM CDT [facility] VLDL CHOLESTEROL 47(H) <=30 mg/dL 07/16/2023 4:03 PM CDT [facility] PROVIDER ORDERED STATUS RANDOM 07/16/2023 4:03 PM CDT [facility] Blood BLOOD SPECIMEN / Unknown Venipuncture / Unknown 07/16/2023 2:59 PM CDT 07/16/2023 3:02 PM CDT Amanda Aguirre DO CHEMISTRY [facility] [address] [place] [address] * VITAMIN D 25 (DEFICIENCY) (07/16/2023 2:59 PM CDT) Pathologist [facility] VITAMIN D TOTAL 20.1 20.0 - 80.0 ng/mL 07/17/2023 1:06 PM CDT [facility] Blood BLOOD SPECIMEN / Unknown Venipuncture / Unknown 07/16/2023 2:59 PM CDT 07/16/2023 3:02 PM CDT Narrative [facility] - 07/17/2023 1:06 PM CDT ? Vitamin D Status Deficiency: ? <20 ng/mL Insufficiency: ?20-29 ng/mL Sufficiency: ?30-80 ng/mL Possible Toxicity: ??>80 ng/mL Based on [place] [employer] recommendations Biotin supplements may cause clinically significant interference for this test assay. ??If interference is suspected, it is strongly recommended that biotin is discontinued for at least one week prior to retesting. Amanda Aguirre DO SEND OUTS [facility] [address] [place] [address], * (ABNORMAL) BASIC METABOLIC PANEL (07/16/2023 2:59 PM CDT) SODIUM 138 136 - 145 mmol/L 07/16/2023 4:03 PM [facility] POTASSIUM 4.4 3.5 - 5.1 mmol/L 07/16/2023 4:03 PM [facility] CHLORIDE 103 98 - 107 mmol/L 07/16/2023 4:03 PM [facility] CO2,TOTAL 24 22 - 29 mmol/L 07/16/2023 4:03 PM [facility] ANION GAP 11 5 - 18 07/16/2023 4:03 PM [facility] GLUCOSE 399(H) 70 - 99 mg/dL 07/16/2023 4:03 PM [facility] CALCIUM 9.3 8.6 - 10.0 mg/dL 07/16/2023 4:03 PM [facility] BUN 16 6 - 20 mg/dL 07/16/2023 4:03 PM [facility] CREATININE 0.71 0.70 - 1.20 mg/dL 07/16/2023 4:03 PM [facility] BUN/CREAT RATIO 23(H) 10 - 20 4 4:03 PM [facility] eGFR >90 >90 mL/min/1.7 3m2 07/16/2023 4:03 PM [facility] Comment:As of 2021, eG FR is calculated by the CKD-EPI creatinine equation without race adjustment. ??eGFR can be influenced by muscle mass, exercise, and diet. ??The reported eGFR is an estimation only and is only applicable if the renal function is stable. Blood BLOOD SPECIMEN / Unknown Venipuncture / Unknown 07/16/2023 2:59 PM CDT 07/16/2023 3:02 PM CDT Amanda Aguirre DO CHEMISTRY Performing Organization Address [facility]/ZIP Co de Phone Number [facility] [address] [place] [address] * (ABNORMAL) HEMOGLOBIN A1C MONITORING (POCT) (07/02/2023 5:24 PM CDT) HEMOGLOBIN A1C MONITORING (POCT) 13.7(H) <=6.4 % 07/02/2023 5:47 PM CDT [facility] Blood BLOOD SPECIMEN / Unknown Venipuncture / Unknown 07/02/2023 5:24 PM CDT 07/02/2023 5:25 PM CDT Narrative [facility] - 07/02/2023 5:47 PM CDT ? (<=6.9%) ? Indicates good control ? (7.0% to 7.9%) ? Indicates fair control ? (>=8.0%) ? Indicates poor control ?? NOTE: ??These thresholds are guidelines and ?individual targets may vary. Falsely low levels may be seen with: Recent Transfusion, Recent Significant Blood Loss, Hemolytic Diseases, or Falsely elevated levels may be seen with: Untreated Anemias, Splenectomy ? Amanda Aguirre DO CHEMISTRY Performing Organization Address City/[facility]/ZIP Co de Phone Number [facility] [address] [place] [address] * COLONOSCOPY SCREENING (03/16/2014) Lincoln Hanna DO GI PROCEDURE ORD from Last 3 Months or Most Recently Relevant to Health Maintenance Advance Directives * Full Code (Latest Code Status on File) Date Activated Date Inactivated Comments 04/03/2020 4:15 PM 04/26/2020 6:11 PM Question Answer Comments Code Status Discussion: Per Existing Order * Full Code Date Activated Date Inactivated Comments 03/29/2020 10:27 PM 04/03/2020 4:12 PM Question Answer Comments Code Status Discussion: Discussed * Full Code Date Activated Date Inactivated Comments 03/29/2020 9:24 PM 03/29/2020 10:27 PM Question Answer Comments Code Status Discussion: Not Discussed * Full Code Date Activated Date Inactivated Comments 04/24/2016 7:12 PM 04/26/2016 4:54 PM * Full Code Date Activated Date Inactivated Comments 09/27/2013 7:18 AM 09/27/2013 2:37 PM Care Teams Telecom Engineer Relationship Specialty Start Date End Date Amanda Aguirre DO [address] [place] [address] PCP - General Family Practice 07/02/23 Aidee Altman RN [address] [place] [address] [employer] 08/18/13 Jono Roth MD [address] [facility] [address] [place] [address] Endocrinology 04/15/17 Nurses, Advanced Heart Failure [address] [address] Advanced Heart Failure/Transplant Card 12/13/20 Dipak Matute MD [address] [place] [address] Cardiology - CHF Cardiovascular Disease 12/13/20
[2023-09-09 17:40] LABS: Troponin I* < 0.01 ng/mL (0.01-0.04)
[2023-09-09 17:42] LABS: Glucose* 407 mg/dL (60-115)
[2023-09-23 09:59] LABS: Creatinine, Point-of-Care* 0.7 mg/dl (0.6-1.3)
== END 2023-09-09 20:44 | disposition short-term general hospital (02) ==
PROVIDERS: Emergency Provider Emergency Medicine
DX: M62.81 Muscle weakness (generalized) (principal); I63.9 Cerebral infarction, unspecified
CPT/HCPCS: 36415; 70450; 70496; 70498; 80048; 80164; 80165; 82565; 82947; 84484; 85025; 85610; 93005; 99284; 99285; Q9967

== ENCOUNTER 2023-09-09 20:14 | Outpatient (CLI) | payer MEDICARE, SELFPAY ==
--- OUTSIDE RECORDS SUMMARY | 2023-09-12 21:40 | XMS_ITS | Clinical Summary ---
Author Organization [employer] [facility] [employer] Address [place], [place] [address] Care Team Providers Care Filter Plant Operator Name Role Phone Aidee Altman RN Unavailable Jono Roth MD Unavailable [phone] Nurses, Advanced Heart Failure Unavailable + Dipak Matute MD Unavailable [phone] Amanda Aguirre DO Primary Care Provider Allergies Active Allergy Reactions Criticality Noted Date Comments Aspirin Throat Swelling/Closing 07/08/2007 Venom-Honey Bee *Unknown 06/19/2011 Randall Pepper Throat Swelling/Closing 07/08/2007 Medications Medication Sig Dispensed Refills Start Date End Date Status nitroglycerin (NITROSTAT) 0.4 mg sublingual tabletIndications :Acute on chronic systolic congestive heart failure (HC) Place 1 Tablet (0.4 mg) under the tongue every 5 minutes if needed for Chest Pain (max 3 doses then call 911). 28 Tablet 5 3 Active divalproex (DEPAKOTE) 500 mg Delayed-Release tabletIndications :Uncontrolled type 2 diabetes mellitus with hyperglycemia (HC) Take 1 Tablet (500 mg) by mouth two times daily. 180 Tablet 3 3 Active pregabalin (Lyrica) 300 mg capsuleIndication s:Diabetes 1.5, managed as type 2 (HC) Take 1 Capsule (300 mg) by mouth two times daily. 180 Capsule 1 4 Active atorvastatin (LIPITOR) 40 mg tabletIndications :Cerebrovascular accident (CVA) due to thrombosis of right middle cerebral artery (HC) Take 1 Tablet (40 mg) by mouth at bedtime. 90 Tablet 1 4 Active cholecalciferol (Vitamin D-3) 2,000 unit capsuleIndication s:Vitamin D deficiency Take 1 Capsule (2,000 units) by mouth once daily. 100 Capsule 1 4 Active clopidogreL (PLAVIX) 75 mg tabletIndications :Cerebrovascular accident (CVA) due to thrombosis of right middle cerebral artery (HC) Take 1 Tablet (75 mg) by mouth once daily. 90 Tablet 1 4 Active FLUoxetine (PROZAC) 40 mg capsuleIndication s:Cerebrovascular accident (CVA) due to thrombosis of right middle cerebral artery (HC) Take 1 Capsule (40 mg) by mouth once daily. 90 Capsule 1 4 Active metFORMIN (GLUCOPHAGE XR) 500 mg Extended-Release tabletIndications :Type 2 diabetes mellitus without complication, with long-term current use of insulin (HC) Take 2 Tablets (1,000 mg) by mouth two times daily with meals. 360 Tablet 1 4 Active Additional Information Patient not taking.Reported on 09/09/2023 mirtazapine (REMERON) 30 mg tabletIndications :Depression, unspecified depression type TAKE ONE TABLET BY MOUTH DAILY AT 9PM AT BEDTIME 90 Tablet 1 4 Active insulin detemir U-100 (LEVEMIR) 100 unit/mL (3 mL) penIndications:Un controlled type 2 diabetes mellitus with hyperglycemia (HC) Inject 20 units subcutaneous before bedtime. 4 Active magnesium oxide (MAG-OX 400) 400 mg tablet Take 400 mg by mouth once daily. Active insulin aspart, U-100, (NovoLOG Flexpen U-100 Insulin) 100 unit/mL (3 mL) pen Inject 15 units subcutaneous three times daily before meals. Active Insulin Tracy, Disposable, 32 gauge x Indications: Type 2 diabetes mellitus with hyperglycemia, with long-term current use of insulin (HC) For administering insulin at home. Remove the 2 covers on the insulin pen needle before administering insulin dose. 100 Each 4 Active Insulin Tracy, Disposable, (Mar Pen Needle) 32 gauge x Indications: Uncontrolled type 2 diabetes mellitus with hyperglycemia (HC) As directed. Use 4 times daily with insulin 400 Each 11 3 09/09/19 24 Discontinued( Pharmacist change per medication history (E-cancel not sent)) blood sugar diagnostic (Accu-Chek Guide test strips) stripIndications: Uncontrolled type 2 diabetes mellitus with hyperglycemia (HC) Use to test blood glucose 4 times daily as directed. 400 Each 3 3 09/09/19 24 Discontinued( Pharmacist change per medication history (E-cancel not sent)) Blood-Glucose MeterIndications: Uncontrolled type 2 diabetes mellitus with hyperglycemia (HC) Use to test blood glucose 4 times daily as directed. 1 Kit 3 09/09/19 24 Discontinued( Pharmacist change per medication history (E-cancel not sent)) lancets (Accu-Chek Softclix Lancets)Indicatio ns:Uncontrolled type 2 diabetes mellitus with hyperglycemia (HC) Use to test blood glucose 4 times daily as directed. 400 Each 3 3 09/09/19 24 Discontinued( Pharmacist change per medication history (E-cancel not sent)) losartan (COZAAR) 25 mg tabletIndications :Systolic congestive heart failure, unspecified HF chronicity (HC) Take 1 Tablet (25 mg) by mouth once daily. 90 Tablet 3 3 09/11/19 24 Discontinued( *IP Discontinued) carvediloL (COREG) 12.5 mg tabletIndications :Systolic congestive heart failure, unspecified HF chronicity (HC),Borderline hypertension Take 2 Tablets (25 mg) by mouth two times daily with meals. 360 Tablet 3 3 09/09/19 24 Discontinued( Pharmacist change per medication history (E-cancel not sent)) tamsulosin (FLOMAX) 0.4 mg capsuleIndication s:BPH without urinary obstruction Take 1 Capsule (0.4 mg) by mouth once daily after a meal. 90 Capsule 3 3 09/11/19 24 Discontinued( *IP Discontinued) FreeStyle Fatuma 3 Patterson for continuous blood glucose monitor (CGM)Indications: diabetes mellitus Use per manufacturers directions 1 Each 12 4 09/09/19 24 Discontinued( Pharmacist change per medication history (E-cancel not sent)) FreeStyle Fatuma 3 Sensor for continuous blood glucose monitor (CGM)Indications: diabetes mellitus Wear each for 14 days 6 Each 12 4 09/09/19 24 Discontinued( Pharmacist change per medication history (E-cancel not sent)) magnesium oxide (MAG-OX 400) 400 mg tabletIndications :Chronic pain syndrome Take 1 Tablet (400 mg) by mouth once daily. Take 1 tablet 2 times daily for 14 days, THEN 1 tablet daily 90 Tablet 1 4 09/09/19 24 Discontinued( Pharmacist change per medication history (E-cancel not sent)) insulin aspart, U-100, (NOVOLOG FLEXPEN) 100 unit/mL (3 mL) penIndications:Un controlled type 2 diabetes mellitus with hyperglycemia (HC) Inject 15 units subcutaneous two times daily before meals. 9 mL 1 4 09/09/19 24 Discontinued( Pharmacist change per medication history (E-cancel not sent)) Lantus Solostar U-100 Insulin 100 unit/mL (3 mL) penIndications:Ty pe 2 diabetes mellitus with hyperglycemia, with long-term current use of insulin (HC) Inject 20 units subcutaneous before bedtime. Product desired: LANTUS SOLOSTAR 18 mL 1 4 09/09/19 24 Discontinued( Pharmacist change per medication history (E-cancel not sent)) carvediloL (Coreg) 12.5 mg tablet Take 12.5 mg by mouth two times daily. 09/11/19 Discontinued( *IP Discontinued) Active Problems Problem Noted Date Diagnosed Date [...] nodule right apex, follow up CT due 9/13, 06/17, 09/18. Diabetes mellitus type II, uncontrolled [...] Encounters Date Type Department Care Team Description 09/10/2023 Lab Requisition [facility] [phone] Unknown, Doctor 09/09/2023 9:10 PM CDT - 2023 1:27 PM CDT Hospital Encounter [facility] [address] [place] [address] Cb Palomino MD Grunewald, Erick Rojas MD [facility], MD Justina Limon, MD Jayshree López, MD Jean Haynes, Patrick Dalal MD Staff, Other Clinical History of CVA (cerebrovascular accident) (Primary Dx); Left-sided weakness; Type 2 diabetes mellitus with hyperglycemia, with long-term current use of insulin (HC) Discharge Disposition: Home Self Care 08/27/[address] [phone] Lincoln Hanna, Refill Request (Fluoxetine) 08/11/[address] [phone] Amanda Aguirre, DO Letter 08/06/[address] [place] [address] Amanda Aguirre, Medication Management (insulin detemir U-100 (LEVEMIR) 100 unit/mL (3 mL) pen) 08/04/[address] [place] [address] Lincoln Hanna, DO Refill Request (Fluoxetine) 07/27/2023 11:00 AM CDT Patient Outreach [address] [place] [address] Aidee Altman, marketing professor (CGM follow-up for insulin management) 07/27/2023 Travel 07/24/[address] [place] [address] Amanda Aguirre DO 07/23/[address] [place] [address] Amanda Aguirre, Refill Request (Atorvastatin/Vitam in D 1999/Clopidogrel/Fr eestyle Fatuma sensors/Magnesium oxide/Metformin/Stephen tazapine/) 07/21/[address] [place] [address] Amanda Aguirre, Results 07/16/2023 2:20 PM CDT Office Visit [address] [place] [address] Amanda Aguirre DO Hospital F/U (D/C 07/07/23, [facility], dehydration) 07/15/2023 3:00 PM CDT Patient Outreach [address] [place] [address] Aidee Altman marketing professor (Help with getting CGM) 07/15/2023 Travel 07/07/[address] [place] [address] Lincoln Hanna, DO Refill Request (Fluoxetine) 07/03/[address] [phone] Amanda Aguirre DO Medication Management (wrong pharmacy) 07/02/2023 4:25 PM CDT Office Visit [address] [phone] Amanda Aguirre DO Medication Management (Has been out of Lyrica for 3 months) 07/02/2023 Travel 06/22/2023 Refill [facility] [address] [facility] [address] [place] [address] Jono Roth MD Refill Request (pregabalin (Lyrica) 300 mg capsule) 06/19/[address] [address] Amanda Aguirre DO Refill Request (mirtazapine (REMERON) 30 mg tablet) 06/18/[address] [phone] Amanda Aguirre DO Prior Authorization (insulin aspart protamine-insulin aspart (Novolog Mix 70-30) 100 unit/mL (70-30) pen Approved June 16, 2023 to April 05, 2024) 06/16/[address] [phone] Amanda Aguirre DO Prior Authorization (FreeStyle Fatuma 3 Patterson for continuous blood glucose monitor (CGM) Approved no dates given) 06/16/[address] [address] Amanda Aguirre DO Prior Authorization (FreeStyle Fatuma 3 Sensor) from Last 3 Months Immunizations Name Administration [...] Sign Reading Time Taken Comments Blood Pressure 106/71 2023 2:04 AM CDT Pulse 77 2023 8:01 AM CDT Temperature 36.4 ??C (97.6 ??F) 2023 8:01 AM CD T Respiratory Rate 16 2023 8:01 AM CDT Oxygen Saturation 96% 2023 8:01 AM CDT Inhaled Oxygen Concentration - - Weight 80.4 kg (177 lb 4.8 oz) 09/09/2023 9:32 P M CDT Height 167.6 cm (5' 6) 09/09/2023 9:32 PM CDT Body Mass Index 28.62 09/09/2023 9:32 PM CDT Plan of Treatment Upcoming Encounters Date Type Department Care Team (Late st Contact Info) Description 09/15/2023 2:25 PM CDT Office Visit [address] [phone] Amanda Aguirre, [address] [address] 11/11/2023 12:10 PM CDT Office Visit [facility] [address] [facility] [address] [place] [address] Jono Roth MD [address] [facility] [address] [place] [address] 12/10/2023 3:35 PM CDT Office Visit [address] [phone] Amanda Aguirre, [address] [address] 03/16/2024 8:30 AM SEMICONDUCTOR EQUIPMENT TECHNICIAN Office Visit [facility] [address] [facility] [address] [place] [address] Hector Najera, PhD, [address] [place] [address] Health Maintenance Due Date Last Done Comments HIV for age 15-65 09/10/1978 Hepatitis C screening for ag e 18-79 09/10/1981 Pneumococcal series for age 6-64 (2 of 2 - PCV) 07/07/2008 07/08/[address] (for lung CA) ag e 50-80 09/10/2013 Zoster (shingles) series for age 50+ (1 of 2) 09/10/2013 COVID-19 vaccine series (3 - 2023-24 season) 2022 12/11/2020, 11/13/2020 Depression screening for [...] history exists Tetanus booster 04/04/2029 04/04/2019, 07/08/2007 Tdap Completed 04/04/2019, 07/08/2007 Procedures Procedure Name Priority Date/Time Associated Diagnosis Comments GLUCOSE METER Timed 2023 11:27 AM CDT GLUCOSE METER Timed 2023 6:48 AM CDT POTASSIUM Early AM 2023 6:14 AM CDT SODIUM Early AM 2023 6:14 AM CDT CREATININE Early AM 2023 6:14 AM CDT GLUCOSE METER Timed 2023 2:05 AM CDT GLUCOSE METER Timed 09/10/2023 8:58 PM CDT GLUCOSE METER Timed 09/10/2023 5:38 PM CDT GLUCOSE METER Timed 09/10/2023 12:[address] ANGIO HEAD AND NECK CAROTID STAT 09/10/2023 9:09 AM CDT GLUCOSE METER Timed 09/10/2023 8:04 AM CDT MR HEAD BRAIN WO STAT 09/09/2023 11:0 2 PM CDT CBC WITH AUTO DIFFERENTIAL STAT 09/09/2023 10:01 PM CDT ETHANOL SERUM OR PLASMA STAT 09/09/2023 10:01 PM CDT BASIC METABOLIC PANEL STAT 09/09/2023 10:01 PM CDT PROTIME-INR STAT 09/09/2023 10:01 PM CDT CBC WITH AUTO DIFFERENTIAL STAT 09/09/2023 10:01 PM CDT EKG 12 LEAD STAT 09/09/2023 9:16 PM CDT VALPROIC ACID TOTAL Routine 09/09/2023 4 :39 PM CDT URINE ALBUMIN TO CREATININE RATIO, RANDOM Routine [...] Relevant to Health Maintenance Results * (ABNORMAL) GLUCOSE METER (2023 11:27 AM CDT) Only the most recent of7 resultswithin the time period is included. GLUCOSE METER 325(H) 65 - 100 mg/dL 2023 11:28 AM CDT [facility] Blood BLOOD SPECIMEN / Unknown 2023 11:27 AM CDT 2023 11:28 AM CDT Isabella Fort[facility] CHEMISTRY [facility] [address] [place] [address], [place] * SODIUM (2023 6:14 AM CDT) Pathologist [facility] SODIUM 140 136 - 145 mmol/L 2023 7:06 AM CDT [facility] Blood BLOOD SPECIMEN / Unknown Butterfly / Unknown 2023 6:14 AM CDT 2023 6:32 AM CDT Fidelina Martell MD CHEMISTRY Performing Organization Address City/[facility]/ZIP Co de Phone Number [facility] [address] [place] [address], [place] * POTASSIUM (2023 6:14 AM CDT) Pathologist [facility] POTASSIUM 4.4 3.5 - 5.1 mmol/L 2023 7:06 AM CDT [facility] Blood BLOOD SPECIMEN / Unknown Butterfly / Unknown 2023 6:14 AM CDT 2023 6:32 AM CDT Fidelina Martell MD CHEMISTRY [facility] [address] [place] [address], [place] * CREATININE (2023 6:14 AM CDT) eGFR >90 >90 mL/min/1.7 3m2 2023 7:06 AM CDT [facility] Comment:As of 2021, eG FR is calculated by the CKD-EPI creatinine equation without race adjustment. ??eGFR can be influenced by muscle mass, exercise, and diet. ??The reported eGFR is an estimation only and is only applicable if the renal function is stable. CREATININE 0.72 0.70 - 1.20 mg/dL 2023 7:06 AM CDT [facility] Blood BLOOD SPECIMEN / Unknown Butterfly / Unknown 2023 6:14 AM CDT 2023 6:32 AM CDT Fidelina Martell MD CHEMISTRY [facility] [address] [place] [id number], * CT ANGIO HEAD AND NECK CAROTID (09/10/2023 9:09 AM CDT) Anatomical Region Laterality Modality BRAIN, NECK Computed Tomogra phy 09/10/2023 9:15 AM CDT Addenda Addendum by Arash Herrear MD on 09/10/2023 9:18 AM CDT For Patients: ??As a result of the Cures Act, medical imaging exams and procedure reports are released immediately into your electronic medical record. ??You may view this report before your referring provider. ?? If you have questions, please contact your health care provider. CT ANGIOGRAM HEAD DATE: 09/10/2023 CLINICAL HISTORY: Patient with focal neurological deficits. ?? TECHNIQUE: Standard helical CT image acquisition through the intracranial circulation following intravenous administration of contrast material with bolus tracking. 2D and 3D MIP images for post-processing were performed and interpreted on an independent workstation and 3D images were permanently archived. COMPARISON: MRI 09/09/2023. FINDINGS: There is no proximal intracranial large vessel occlusion. There is no intracranial aneurysm. The right internal carotid artery is normal. The right middle cerebral artery and its branches are normal. The right anterior cerebral artery and its branches are normal. The left internal carotid artery is normal. The left middle cerebral artery and its branches are normal. The left anterior cerebral artery and its branches are normal. The anterior communicating artery is well visualized and appears normal. The right vertebral artery and PICA are normal. The left vertebral artery and PICA are normal. The vertebral arteries are codominant. The basilar artery is patent and appears normal. The right posterior cerebral artery is normal. The left posterior cerebral artery is normal. IMPRESSION: Patent proximal intracranial vasculature without intracranial aneurysms. Please note that all CT scans at this facility use dose modulation, iterative reconstruction, and/or weight-based dosing when appropriate to reduce radiation dose to as low as reasonably achievable. Dictated by: Arash Herrera MD @ 09/10/2023 09:18:48 (Electronically Signed) Impressions 09/10/2023 9:15 AM CDT Patent cervical vasculature. Please note that all CT scans at this facility use dose modulation, iterative reconstruction, and/or weight-based dosing when appropriate to reduce radiation dose to as low as reasonably achievable. Dictated by: Arash Herrera MD @ 09/10/2023 09:15:55 (Electronically Signed) Narrative 09/10/2023 9:15 AM CDT For Patients: ??As a result of the Century Cures Act, medical imaging exams and procedure reports are released immediately into your electronic medical record. ??You may view this report before your referring provider. ??If you have questions, please contact your health care provider. CT ANGIOGRAM NECK DATE: 09/10/2023 CLINICAL HISTORY: Patient with focal neurological deficits. TECHNIQUE: Standard helical CT image acquisition of the neck up to the skull base after bolus intravenous contrast enhancement. 2D and 3D MIP images for post-processing were performed and interpreted on an independent workstation and 3D images were permanently archived. COMPARISON: MRI 09/09/2023. FINDINGS: The origins of the great vessels from the aortic arch are patent. The origin of the right vertebral artery is patent. The origin of the left vertebral artery is patent. The common carotid arteries are patent. There is plaque without stenosis at the origin of the right internal carotid artery. There is plaque without stenosis at the origin of the left internal carotid artery. The rest of the cervical segments of the internal carotid arteries are patent up to the skull base. The vertebral arteries are codominant. The cervical segments of the vertebral arteries are patent up to the skull base. The visualized lung apices are unremarkable. The thyroid gland is unremarkable. The soft tissues of the neck are unremarkable. There are degenerative changes in the cervical spine. Procedure Note Arash Herrera MD - 09/10/2023 For Patients: As a result of the Cures Act, medical imagingexams and procedure reports are released immediately into your electronicmedical record. You may view this report before your referring provider.If you have questions, please contact your health care provider. CT ANGIOGRAM NECK DATE: 09/10/2023 CLINICAL HISTORY: Patient with focal neurological deficits. TECHNIQUE: Standard helical CT image acquisition of the neck up to theskull base after bolus intravenous contrast enhancement. 2D and 3D MIPimages for post- processing were performed and interpreted on an[employer] workstation and 3D images were permanently archived. COMPARISON: MRI 09/09/2023. FINDINGS: The origins of the great vessels from the aortic arch are patent. Theorigin of the right vertebral artery is patent. The origin of the leftvertebral artery is patent. The common carotid arteries are patent. There is plaque without stenosis at the origin of the right internalcarotid artery. There is plaque without stenosis at the origin of the left internalcarotid artery. The rest of the cervical segments of the internal carotid arteries arepatent up to the skull base. The vertebral arteries are codominant. The cervical segments of thevertebral arteries are patent up to the skull base. The visualized lung apices are unremarkable. The thyroid gland is unremarkable. The soft tissues of the neck are unremarkable. There are degenerative changes in the cervical spine. IMPRESSION: Patent cervical vasculature. Please note that all CT scans at this facility use dose modulation,iterative reconstruction, and/or weight-based dosing when appropriate toreduce radiation dose to as low as reasonably achievable. Dictated by: Arash Herrera MD @ 09/10/2023 09:15:55 (Electronically Signed) Kiah Valencia [facility] [place] * MR HEAD BRAIN WO (09/09/2023 11:02 PM CDT) Anatomical Region Laterality Modality BRAIN, HEAD Magnetic Resonan ce 09/10/2023 12:0 8 AM CDT Narrative 09/10/2023 8:06 AM CDT For Patients: ??As a result of the Cures Act, medical imaging exams and procedure reports are released immediately into your electronic medical record. ??You may view this report before your referring provider. ??If you have questions, please contact your health care provider. Indication: Neurologic Dysfunction Technique: Noncontrast sagittal T1 weighted, axial T2 fast spin echo, FLAIR, and diffusion weighted images of the head. Comparison: MRI 10/20/2022 Findings: Chronic lacunar infarcts in the bilateral cerebellum. Wallerian degeneration along the right cortical spinal tract with atrophy the right cerebral peduncle. Moderate region encephalomalacia in the right frontal lobe and right basal ganglia compatible with chronic ischemic infarct. A few foci of susceptibility artifact are compatible with hemosiderin deposition in the infarcted region. Mild patchy regions of increased T2 signal within the periventricular and subcortical white matter of both cerebral hemispheres. The pituitary gland, optic chiasm, pineal gland, and cerebellar tonsils are unremarkable. Moderate cerebral volume loss. The ventricles, sulci and gyri are of normal size, shape and contour for age and degree of atrophy. No regions of restricted diffusion. Midline structures are centrally located. No convincing evidence of suspicious intra- or extra-axial fluid collections. Rightward deviation of the nasal septum. Impression: 1. No radiographic evidence of acute intracranial abnormalities. 2. Chronic ischemic infarcts in the right frontal lobe and basal ganglia and bilateral cerebellum. 3. Mild supratentorial white matter changes are non-specific but statistically most likely related to small vessel ischemic disease. Moderate cerebral volume loss. Dictated by Gabino Baker MD @ 09/10/2023 8:06:42 AM (Electronically Signed) Procedure Note Gabino Baker MD - 09/10/2023 For Patients: As a result of the Cures Act, medical imagingexams and procedure reports are released immediately into your electronicmedical record. You may view this report before your referring provider.If you have questions, please contact your health care provider. Indication: Neurologic Dysfunction Technique: Noncontrast sagittal T1 weighted, axial T2 fast spin echo, FLAIR, anddiffusion weighted images of the head. Comparison: MRI 10/20/2022 Findings: Chronic lacunar infarcts in the bilateral cerebellum. Walleriandegeneration along the right cortical spinal tract with atrophy the rightcerebral peduncle. Moderate region encephalomalacia in the right frontallobe and right basal ganglia compatible with chronic ischemic infarct. Afew foci of susceptibility artifact are compatible with hemosiderindeposition in the infarcted region. Mild patchy regions of increased [id number] within the periventricular and subcortical white matter of bothcerebral hemispheres. The pituitary gland, optic chiasm, pineal gland, andcerebellar tonsils are unremarkable. Moderate cerebral volume loss. Theventricles, sulci and gyri are of normal size, shape and contour for ageand degree of atrophy. No regions of restricted diffusion. Midlinestructures are centrally located. No convincing evidence of suspiciousintra- or extra-axial fluid collections. Rightward deviation of the nasalseptum. Impression: 1. No radiographic evidence of acute intracranial abnormalities. 2. Chronic ischemic infarcts in the right frontal lobe and basal gangliaand bilateral cerebellum. 3. Mild supratentorial white matter changes are non-specific butstatistically most likely related to small vessel ischemic disease.Moderate cerebral volume loss. Dictated by Gabino Baker MD @ 09/10/2023 8:06:42 AM (Electronically Signed) Cb Palomino MD MR * (ABNORMAL) CBC WITH AUTO DIFFERENTIAL (09/09/2023 10:01 PM CDT) WHITE BLOOD COUNT 7.1 4.5 - 11.0 thou/cu mm 09/09/2023 10:16 PM CDT [facility] RED BLOOD COUNT 5.24 4.30 - 5.90 mil/cu mm 09/09/2023 10:16 PM CDT [facility] HEMOGLOBIN 15.3 13.5 - 17.5 g/dL 09/09/2023 10:16 PM CDT [facility] HEMATOCRIT 46.1 37.0 - 53.0 % 09/09/2023 10:16 PM CDT [facility] MCV 88 80 - 100 fL 09/09/2023 10:16 PM CDT [facility] MCH 29.2 26.0 - 34.0 pg 09/09/2023 10:16 PM CDT [facility] MCHC 33.2 32.0 - 36.0 g/dL 09/09/2023 10:16 PM [facility] RDW 13.1 11.5 - 15.5 % 09/09/2023 10:16 PM CDT [facility] PLATELET COUNT 174 140 - 440 thou/cu mm [facility] MPV 10.0 6.5 - 11.0 fL 09/09/2023 10:16 PM [facility] NRBC 0.0 % 09/09/2023 10:[facility] ABS NRBC 0.0 thou /cu mm 09/09/2023 10:16 PM [facility] % NEUT 38.8 % 09/09/2023 10:16 PM [facility] % LYMPH 48.8 % 09/09/2023 10:16 PM [facility] % MONO 7.4 % 09/09/2023 10:16 PM [facility] % EOS 4.2 % 09/09/2023 10:16 PM [facility] % BASO 0.4 % 09/09/2023 10:16 PM [facility] % IMMATURE GRAN (METAS,MYELOS,TX OS) 0.4 % 09/09/2023 10:16 PM [facility] ABSOLUTE NEUTROPHILS 2.7 1.7 - 7.0 thou/cu mm 09/09/2023 10:16 PM T [facility] ABSOLUTE LYMPHOCYTES 3.5(H) 0.9 - 2.9 thou/cu mm 09/09/2023 10:16 PM T [facility] ABSOLUTE MONOCYTES 0.5 <0.9 thou/cu mm 09/09/2023 10:16 PM CDT [facility] ABSOLUTE EOSINOPHILS 0.3 <0.5 thou/cu mm 09/09/2023 10:16 PM CDT [facility] ABSOLUTE BASOPHILS 0.0 <0.3 thou/cu mm 09/09/2023 10:16 PM CDT [facility] ABSOLUTE IMMATURE GRANULOCYTES(MET ,MYELOS,PROS) 0.0 <0.3 thou/cu mm 09/09/2023 10:16 PM CDT [facility] Blood BLOOD SPECIMEN / Unknown Butterfly / Unknown 09/09/2023 10:01 PM CDT 09/09/2023 10:10 PM CDT Cb Palomino MD HEMATOL OGY Performing Organization Address City/[facility]/ZIP Co de Phone Number [facility] [address] [address], [place] * ETHANOL SERUM OR PLASMA (09/09/2023 10:01 PM CDT) ETHANOL <0.010 <0.010 g/dL 09/09/2023 10:34 PM CDT [facility] Blood BLOOD SPECIMEN / Unknown Butterfly / Unknown 09/09/2023 10:01 PM CDT 09/09/2023 10:10 PM CDT Cb Palomino MD DENTAL FINANCIAL COORDINATOR [facility] [address] [place] [id number], [place] * (ABNORMAL) PROTIME- INR (09/09/2023 10:01 PM CDT) INR 0.9 <1.3 09/09/2023 10:19 PM CDT [facility] PROTIME 10.2(L) 10.3 - 12.3 sec 09/09/2023 10:19 PM CDT [facility] Blood BLOOD SPECIMEN / Unknown Butterfly / Unknown 09/09/2023 10:01 PM CDT 09/09/2023 10:10 PM CDT Narrative [facility] - 09/09/2023 10:19 PM CDT ?Therapeutic Range 2.0-3.0 for most anticoagulated patients 2.5-3.5 or 4.0 for high risk patients The INR is only used for patients on stable oral anticoagulant therapy. It makes no significant contribution to the diagnosis or treatment of patients whose Protime is prolonged for other reasons. INR results are increased when heparin levels exceed 1.0 U/mL, which corresponds to an aPTT >125 seconds if the patient is on UFH. Cb Palomino MD HEMATOL OGY [facility] [address] [place] [address], * (ABNORMAL) BASIC METABOLIC PANEL (09/09/2023 10:01 PM CDT) Only the most recent of2 resultswithin the time period is included. SODIUM 141 136 - 145 mmol/L 09/09/2023 10:34 PM CDT [facility] POTASSIUM 4.0 3.5 - 5.1 mmol/L 09/09/2023 10:34 PM CDT [facility] CHLORIDE 108(H) 98 - 107 mmol/L 09/09/2023 10:34 PM CDT [facility] CO2,TOTAL 22 22 - 29 mmol/L 09/09/2023 10:34 PM CDT [facility] ANION GAP 11 5 - 18 09/09/2023 10:34 PM CDT [facility] GLUCOSE 162(H) 70 - 99 mg/dL 09/09/2023 10:34 PM CDT [facility] CALCIUM 9.0 8.6 - 10.0 mg/dL 09/09/2023 10:34 PM T [facility] BUN 17 6 - 20 mg/dL 09/09/2023 10:34 PM CDT [facility] CREATININE 0.71 0.70 - 1.20 mg/dL 09/09/2023 10:34 PM CDT [facility] BUN/CREAT RATIO 24(H) 10 - 20 10:34 PM CDT [facility] eGFR >90 >90 mL/min/1.7 3m2 09/09/2023 10:34 PM CDT [facility] Comment:As of 2021, eG FR is calculated by the CKD-EPI creatinine equation without race adjustment. ??eGFR can be influenced by muscle mass, exercise, and diet. ??The reported eGFR is an estimation only and is only applicable if the renal function is stable. Blood BLOOD SPECIMEN / Unknown Butterfly / Unknown 09/09/2023 10:01 PM CDT 09/09/2023 10:10 PM CDT Cb Palomino MD DENTAL FINANCIAL COORDINATOR RY Performing Organization Address City/[facility] Co de Phone Number [facility] [address] [place] [address], * EKG 12 Lead (09/09/2023 9:16 PM CDT) Interpretation Normal sinus rhythm Left axis deviation Possible Inferior infarct , age undetermined Abnormal ECG Compared to ekg of 29-MAR-2020, No significant change BEYOND NOW Ventricular Rate 83 BPM BEYOND NOW Atrial Rate 83 BPM BEYOND NOW P-R Interval 204 ms BEYOND NOW QRS Duration 86 ms BEYOND NOW QT 372 ms BEYOND NOW QTc 437 ms BEYOND NOW P Stone 58 degrees BEYOND NOW R Stone -33 degrees BEYOND NOW T Stone 48 degrees BEYOND NOW 09/09/2023 9:16 PM CDT 09/09/2023 11:14 PM CDT Cb Palomino MD EKG ORD Performing Organization Address [facility] Co de Phone Number [facility] NOW [place], [place] * (ABNORMAL) VALPROIC ACID TOTAL (09/09/2023 4:39 PM CDT) VALPROIC ACID,TOTAL <2.8(L) 50.0 - 100.0 ug/mL 09/10/2023 3:39 PM CDT [facility] DATE OF LAST DOSE Not Given 09/10/2023 3:39 PM CDT [facility] TIME OF LAST DOSE Not Given 09/10/2023 3:39 PM CDT [facility] Blood BLOOD SPECIMEN / Unknown Client Collect / Unknown 09/09/2023 4:39 PM CDT 09/10/2023 2:56 PM CDT Doctor Felisa CHEMISTRY [facility] [address] [place] [address], * (ABNORMAL) URINE ALBUMIN TO CREATININE RATIO, RANDOM (07/16/2023 3:10 PM CDT) ALB RAND URINE 97.1 mg/L 07/17/2023 1:34 PM CDT [facility] CREATININE,URIN E 0.60 g/L 07/17/2023 1:34 PM CDT [facility] ALBUMIN TO CREATININE RATIO,RAND UR 161.8(H) <30.0 mg/g creat 07/17/2023 1:34 PM CDT [facility] Urine URINE SPECIMEN / Unknown Non-Blood / Unknown 07/16/2023 3:10 PM CDT 07/16/2023 3:10 PM CDT Narrative [facility] - 07/17/2023 1:34 PM CDT If Albumin to Creatinine Ratio is elevated, consider the following: ? Elevations seen with incipient nephropathy associated ?? with diabetes mellitus or hypertension. Stress, exercise,hematuria, ?? and urinary tract infection may also produce elevated results. If clinically indicated, confirm with ?24 Hour Albumin to Creatinine Ratio. ?? Amanda Aguirre DO URINE [facility] [address] [place] [address], * (ABNORMAL) LIPID PANEL W REFLEX MEASURED LDL (07/16/2023 2:59 PM CDT) CHOLESTEROL,TOTAL 245(H) 100 - 199 mg/dL 07/16/2023 4:03 PM T [facility] Comment: Cholesterol, Total Reference Ranges Desirable <200 mg/dL Borderline 200-239 mg/dL High >=240 mg/dL TRIGLYCERIDES 237(H) <150 mg/dL 07/16/2023 4:03 PM T [facility] HDL CHOLESTEROL 56 >40 mg/dL 4:03 PM [facility] NON-HDL CHOLESTEROL 189(H) <145 mg/dl 07/16/2023 4:03 PM [facility] CHOL/HDL RATIO 4.38 <4.50 07/16/2023 4:03 PM T [facility] LDL CHOLESTEROL 142(H) <=130 mg/dL 07/16/2023 4:03 PM [facility] VLDL CHOLESTEROL 47(H) <=30 mg/dL 07/16/2023 4:03 PM T [facility] PROVIDER ORDERED STATUS RANDOM 07/16/2023 4:03 PM T [facility] Blood BLOOD SPECIMEN / Unknown Venipuncture / Unknown 07/16/2023 2:59 PM CDT 07/16/2023 3:02 PM CDT Amanda Aguirre DO CHEMISTRY [facility] [address] [place] [address] * VITAMIN D 25 (DEFICIENCY) (07/16/2023 2:59 PM CDT) VITAMIN D TOTAL 20.1 20.0 - 80.0 ng/mL 07/17/2023 1:06 PM CD[facility] Blood BLOOD SPECIMEN / Unknown Venipuncture / Unknown 07/16/2023 2:59 PM CDT 07/16/2023 3:02 PM CDT Narrative [facility] - 07/17/2023 1:06 PM CDT ? Vitamin D Status Deficiency: ? <20 ng/mL Insufficiency: ?20-29 ng/mL Sufficiency: ?30-80 ng/mL Possible Toxicity: ??>80 ng/mL Based on [place] of Medicine recommendations Biotin supplements may cause clinically significant interference for this test assay. ??If interference is suspected, it is strongly recommended that biotin is discontinued for at least one week prior to retesting. Amanda Aguirre DO SEND OUTS [facility] [address] [place] [address], * (ABNORMAL) HEMOGLOBIN A1C MONITORING (POCT) (07/02/2023 5:24 PM CDT) [facility] HEMOGLOBIN A1C MONITORING (POCT) 13.7(H) <=6.4 % 07/02/2023 5:47 PM CDT [facility] Blood BLOOD SPECIMEN / Unknown Venipuncture / Unknown 07/02/2023 5:24 PM CDT 07/02/2023 5:25 PM CDT Narrative [facility] - 07/02/2023 5:47 PM CDT ? [...] Anemias, Splenectomy ? Amanda Aguirre DO CHEMISTRY [facility] [address] [place] [address] * COLONOSCOPY SCREENING (03/16/2014) [facility] GI PROCEDURE ORD from Last 3 Months or Most Recently Relevant to Health Maintenance Advance Directives * Full Code (Latest Code Status on File) Date Activated Date Inactivated Comments 09/10/2023 12:04 AM 2023 3:28 PM Question Answer Comments Code Status Discussion: Reviewed Preferences * Full Code Date Activated Date Inactivated Comments 09/09/2023 11:45 PM 09/10/2023 12:04 AM Question Answer Comments Code Status Discussion: Unable to Assess Preferences, Provider to review later * Full Code Date Activated Date Inactivated Comments 04/03/2020 4:15 PM 04/26/2020 6:11 PM Question Answer Comments Code Status Discussion: Per Existing Order * Full Code Date Activated Date Inactivated Comments 03/29/2020 10:27 PM 04/03/2020 4:12 PM Question Answer Comments Code Status Discussion: Discussed * Full Code Date Activated Date Inactivated Comments 03/29/2020 9:24 PM 03/29/2020 10:27 PM Question Answer Comments Code Status Discussion: Not Discussed Care Teams Filter Plant Operator Relationship Specialty Start Date End Date Amanda Aguirre DO [address] [place] [address] PCP - General Family Practice 07/02/23 Aidee Altman, RN [address] [facility] N[place]LETTE Rudolph [address] Cafe Team Member 08/18/13 Jono Roth MD [address] [address] Endocrinology 04/15/17 Nurses, Advanced Heart Failure [address] [place] [id number] Advanced Heart Failure/Transplant Card 12/13/20 Dipak Matute MD [address] [address] Cardiology - CHF Cardiovascular Disease 12/13/20
== END 2023-09-09 20:15 | disposition home or self-care (01) ==
LOC: AMB 09-12 21:38
PROVIDERS: Visit Provider Emergency Medicine
DX: I63.9 Cerebral infarction, unspecified (principal); M62.81 Muscle weakness (generalized)
CPT/HCPCS: A0425; A0427

== ENCOUNTER 2023-12-23 19:41 | Emergency (ER) | payer MEDICARE, SELFPAY ==
--- OUTSIDE RECORDS SUMMARY | 2023-12-23 19:45 | XMS_ITS | Clinical Summary ---
Author Organization [facility] Address [place], [place] [address] Care Team Providers Care Liquor Inspector Name Role Phone Aidee Altman RN Unavailable Jono Roth MD Unavailable [phone] Nurses, Advanced Heart Failure Unavailable + Dipak Matute MD Unavailable [phone] Amanda Aguirre DO Primary Care Provider Allergies Active Allergy Reactions Criticality Noted Date Comments Aspirin Throat Swelling/Closing 07/08/2007 Venom-Honey Bee *Unknown 06/19/2011 Randall Pepper Throat Swelling/Closing 07/08/2007 Medications Medication Sig Dispensed Refills Start Date End Date Status metFORMIN (GLUCOPHAGE XR) 500 mg Extended-Release tabletIndications: Type 2 diabetes mellitus without complication, with long-term current use of insulin (HC) Take 2 Tablets (1,000 mg) by mouth two times daily with meals. 360 Tablet 1 4 Active magnesium oxide (MAG-OX 400) 400 mg tablet Take 400 mg by mouth once daily. Active Insulin Newport, Disposable, 32 gauge x Indications:T ype 2 diabetes mellitus with hyperglycemia, with long-term current use of insulin (HC) For administering insulin at home. Remove the 2 covers on the insulin pen needle before administering insulin dose. 100 Each 4 Active nicotine 7 mg/24 hr (NICODERM; HABITROL) 7 mg/24 hr patchIndications:T obacco abuse disorder Apply 1 Patch on dry, clean, hairless skin once daily. 14 Patch 3 4 Active nicotine 14 mg/24 hr (NICODERM; HABITROL) 14 mg/24 hr patchIndications:T obacco abuse disorder Apply 1 Patch on dry, clean, hairless skin once daily. 14 Patch 3 4 Active nicotine 21 mg/24 hr (NICODERM; HABITROL) 21 mg/24 hr patchIndications:T obacco abuse disorder Apply 1 Patch on dry, clean, hairless skin once daily. 14 Patch 3 4 Active FreeStyle Fatuma 3 Sensor for continuous blood glucose monitor (CGM)Indications:T ype 2 diabetes mellitus with hyperglycemia, with long-term current use of insulin (HC) To be used to read blood sugars, follow aerospace quality engineer directions. 6 Each 3 4 Active atorvastatin (LIPITOR) 40 mg tabletIndications: Cerebrovascular accident (CVA) due to thrombosis of right middle cerebral artery (HC) Take 1 Tablet (40 mg) by mouth at bedtime. 90 Tablet 1 4 Active tamsulosin (FLOMAX) 0.4 mg capsuleIndications :BPH without urinary obstruction Take 1 Capsule (0.4 mg) by mouth once daily after a meal. 90 Capsule 1 4 Active divalproex (DEPAKOTE) 500 mg Delayed-Release tabletIndications: Major depressive disorder, recurrent episode, moderate (HC) Take 1 Tablet (500 mg) by mouth two times daily. 180 Tablet 1 4 Active mirtazapine (REMERON) 30 mg tabletIndications: Depression, unspecified depression type TAKE ONE TABLET BY MOUTH DAILY AT 9PM AT BEDTIME 100 Tablet 1 4 Active cholecalciferol (Vitamin D-3) 2,000 unit capsuleIndications :Vitamin D deficiency Take 1 Capsule (2,000 units) by mouth once daily. 100 Capsule 2 4 Active insulin detemir U-100 (LEVEMIR) 100 unit/mL (3 mL) penIndications:Unc ontrolled type 2 diabetes mellitus with hyperglycemia (HC) Inject 32 units subcutaneous before bedtime. 4 Active clopidogreL (PLAVIX) 75 mg tabletIndications: Cerebrovascular accident (CVA) due to thrombosis of right middle cerebral artery (HC) Take 1 Tablet (75 mg) by mouth once daily. 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 180 Capsule 1 4 Active nitroglycerin (NITROSTAT) 0.4 mg sublingual tabletIndications: Acute on chronic systolic congestive heart failure (HC) Place 1 Tablet (0.4 mg) under the tongue every 5 minutes if needed for Chest Pain (max 3 doses then call 911). 28 Tablet 4 Active DULoxetine (CYMBALTA) 30 mg Delayed-release capsuleIndications :Polyneuropathy,[place] depressive disorder, recurrent episode, moderate (HC) Take 1 Capsule (30 mg) by mouth once daily. 90 Capsule 4 Active insulin pump cart,auto,BT-cntr (Omnipod 5 G6 Intro Kit, Gen 5,) crtgIndications:Un controlled type 2 diabetes mellitus with hyperglycemia (HC) Inject subcutaneous. 1 Each 5 4 Active sensor (Dexcom G6 Sensor) for continuous blood glucose monitor (CGM)Indications:T ype 2 diabetes mellitus with hyperglycemia, with long-term current use of insulin (HC) To be used to read blood sugars, change sensor every 10 days. 3 Each 5 4 Active transmitter (Dexcom G6 Transmitter) for continuous blood glucose monitor (CGM)Indications:T ype 2 diabetes mellitus with hyperglycemia, with long-term current use of insulin (HC) Change every 90 days 1 Each 3 4 Active nitroglycerin (NITROSTAT) 0.4 mg sublingual tabletIndications: Acute on chronic systolic congestive heart failure (HC) Place 1 Tablet (0.4 mg) under the tongue every 5 minutes if needed for Chest Pain (max 3 doses then call 911). 28 Tablet 5 3 12/10/19 24 Discontinu ed(Reorder (E-cancel not sent)) pregabalin (Lyrica) 300 mg capsuleIndications :Diabetes 1.5, managed as type 2 (HC) Take 1 Capsule (300 mg) by mouth two times daily. 180 Capsule 1 4 11/27/19 Discontinu ed(Reorder (E-cancel not sent)) FLUoxetine (PROZAC) 40 mg capsuleIndications :Cerebrovascular accident (CVA) due to thrombosis of right middle cerebral artery (HC) Take 1 Capsule (40 mg) by mouth once daily. 90 Capsule 1 4 12/10/19 Discontinu ed(*Med complete/R egimen complete/L evel of care change) Active Problems Problem Noted Date Diagnosed Date History of stroke 12/10/2023 Tobacco use 12/10/2023 BPH without urinary obstruction 09/15/2023 Type 2 diabetes mellitus wit h hyperglycemia, with long-term current use of insulin 08/11/2023 Systolic CHF 04/22/2020 Cerebrovascular accident (CV A) due to thrombosis of right middle cerebral artery 03/30/2020 Hemiparesis, left 03/29/2020 COPD (chronic obstructive pulmonary disease) Chronic cerebrovascular accident (CVA) 0 Overview (03/29/2020): CT 03/29/2020 shows chronic R CVA Hemiplegia affecting nondominant side 03/29/2020 Tobacco abuse disorder 04/24/2016 Chronic pain syndrome 04/24/2016 Depression 04/24/2016 Polyneuropathy 03/18/2016 Diabetic nephropathy 01/31/2014 Pulmonary nodule 10/15/2012 Overview (10/15/2012): 11 mm nodule right apex, follow up [...] Encounters Date Type Department Care Team Description 12/23/2023 Nurse Triage [address] [phone] Amanda Aguirre, DO High Blood Sugar 12/22/[address] [address] Amanda Aguirre, needs meds 12/22/[address] [address] Amanda Aguirre, Medication Management 12/18/2023 Orders Only [address] [place] [address] Amanda Aguirre, <No scans attached> 12/17/2023 10:47 AM CDT - 12/17/2023 11:59 PM CDT Hospital Encounter [facility] [address] [place] [address] Amanda Aguirre, Noreen Bradley, PT Acquired supination of foot, left; Hemiplegia affecting nondominant side (HC); History of stroke 12/17/2023 Travel 12/10/2023 1:05 PM CDT Office Visit [address] [place] [address] Amanda Aguirre, Diabetes (Pt is wondering if he can be put on Omni pod pt states pt is forgetful and isn't mindful with the insulin ) 12/10/2023 Travel 11/27/2023 Refill [facility] [address] [place] [address] Jono Roth MD Refill Request (lyrica) 11/17/2023 Telephone [facility] [address] [facility] [address] [place] [address] Hector Najera, PhD, LP Appointment 11/11/2023 Orders Only [facility] [address] [facility] [address] [place] [address] Jonny Raza CMA <No scans attached> 11/11/2023 Orders Only [facility] [address] [facility] [address] [place] [address] Jono Roth MD <No scans attached> 11/11/2023 Telephone [facility] [address] [facility] [address] [place] [address] Jono Roth MD 10/30/[address] [address] Amanda Aguirre, Refill Request (FLUoxetine (PROZAC) 40 mg capsule 90 Capsule 1 10/19/2023 - No, insulin aspart, U-100, (NovoLOG Flexpen U-100 Insulin) 100 unit/mL (3 mL) pen - - , /insulin detemir U-100 (LEVEMIR) 100 unit/mL (3 mL) pen - - 10/29/2023, losartan (COZAAR) 25 mg tablet (Discontinued) 90 Tablet 3 08/21/2022 2023, /clopidogreL (PLAVIX) 75 mg tablet 90 Tablet 1 10/19/2023 - No/) 10/29/2023 2:00 PM CDT Patient Outreach [address] [address] Aidee Altman, publishing editor (Follow-up ) 10/29/2023 Travel 10/19/[address] [phone] Amanda Aguirre DO Refill Request (Levemir flexpen, vitamin d, Divalproex Sod, mirtazapine and losartan ) 10/06/[address] [address] Amanda Aguirre, Refill Request (FLUoxetine (PROZAC) 40 mg capsule, clopidogreL (PLAVIX) 75 mg tablet, atorvastatin (LIPITOR) 40 mg tablet, tamsulosin (FLOMAX) 0.4 mg capsule) 10/05/2023 2:00 PM CDT Patient Outreach [address] [address] Aidee Altman RN Diabetes (Follow-up) 10/05/2023 1:50 PM CDT Orders Only [address] [address] Lab, [facility] 10/05/2023 Travel from Last 3 Months Immunizations Name Administration Dates Next Due Hepatitis B (Adult) 04/18/2014,11/28/2013,2012 Influenza Virus, Unspecified 03/08/2013 Influenza, CCIIV3 (Age >=6 MO) 03/06/2014 Influenza, IIV3 (Age >=3 years) 03/08/2013 Influenza, IIV4 03/05/2017 Pneumococcal Poly,23-Valent (Pneumovax) 07/08/19 08 Tdap 04/04/2019,07/08/2007 [...] Date Smoking Tobacco: Every Day Cigarettes 2 51.7 Started: 1974 Passive Smoke Exposure: Current Smokeless Tobacco: Never Tobacco Cessation:Ready to Q uit: Yes; Counseling Given: Not Answered Comments:started smoking at 7 years old wants to talk about nicotine patches Alcohol Use Standard Drinks/Week Comments Not Currently 0 (1 standard drink = 0.6 oz pure alcohol) very rare beer maybe once a year PHQ-2 Answer Date Recorded PHQ-2 TOTAL SCORE 6 12/10/2023 Social Connections Answer Date Recorded Frequency of Communication with Friends and Fami ly 0 09/15/2023 Financial Resource Strain Answer Date R ecorded Difficulty of Paying Living Expenses 3 09/15/2023 Difficulty of Paying Living Expenses Not on file 09/15/2023 Food Insecurity Answer Date Recorded Worried About Running Out of Food in the Last Ye ar 1 09/15/2023 Transportation Needs Answer Date Record ed Lack of Transportation (Medical) 1 09/15/2023 Housing Stability Answer Date Recorded Unable to Pay for Housing in the Last Year 1 09/15/2023 Sex and Gender Information Value Date Recorded Sex Assigned at Not on file Gender Identity Not on file Sexual Orientation Not on file Obstetrics History Last Filed Vital Signs Vital Sign Reading Time Taken Comments Blood Pressure 118/76 12/10/2023 1:25 PM CDT Pulse 82 12/10/2023 1:25 PM CDT Temperature 36.4 ??C (97.6 ??F) 2023 8:01 AM CD T Respiratory Rate 17 12/10/2023 1:25 PM CDT Oxygen Saturation 96% 2023 8:01 AM CDT Inhaled Oxygen Concentration - - Weight 76.3 kg (168 lb 3.2 oz) 12/10/2023 1:25 P M CDT Height 168.9 cm (5' 6.5) 12/10/2023 1:25 PM CDT Body Mass Index 26.74 12/10/2023 1:25 PM CDT Plan of Treatment Upcoming Encounters Date Type Department Care Team (Late st Contact Info) Description 01/19/2024 2:00 PM CDT Office Visit [facility] [address] [place] [address] Amanda Aguirre DO [address] [place] [address] 03/23/2024 1:10 PM INDEPENDENT FILM MAKER Office Visit [facility] [address] [facility] [address] [facility] [address] [place] [address] Jono Roth MD [address] [facility] [address] [facility] [address] [place] [address] Health Maintenance Due Date Last Done Comments HIV for age 15-65 09/10/1978 Pneumococcal series for age 6-64 (2 of 2 - PCV) 07/07/2008 07/08/[address] (for lung CA) ag e 50-80 09/10/2013 Zoster (shingles) series for age 50+ (1 of 2) 09/10/2013 COVID-19 vaccine series (3 - 2022- season) 2023 12/11/2020, 11/13/2020 Influenza for age 50-64 12/06/2023 03/05/20 17, 03/06/2014, 03/08/2013, Additional history exists Colonoscopy through age 75 03/16/2024 03/16/2014, BMI (ht and wt on same day) for age 18+ 12/09/2024 12/10/2023, 09/15/2023, 12/29/2022, Additional history exists Depression screening for age 12+ 12/09/2024 12/10/2023, 09/15/2023, 08/21/2022, Additional history exists Lipids for age 45-75 07/15/2028 07/16/2023, 06/19/2022, 03/30/2020, Additional history exists Tetanus booster 04/04/2029 04/04/2019, 07/08/2007 Tdap Completed 04/04/2019, 07/08/2007 Hepatitis C screening for ag e 18-79 Completed 10/05/2023 Procedures Procedure Name Priority Date/Time Associated Diagnosis Comments BASIC METABOLIC PANEL Routine 12/10/2023 1:08 PM CDT Diabetes 1.5, managed as type 2 (HC) HEMOGLOBIN A1C Routine 10/05/2023 2:15 PM CDT Uncontrolled type 2 diabetes mellitus with hyperglycemia (HC) ANTI HCV Routine 10/05/2023 2:15 PM CDT Encounter for hepatitis C screening test for low risk patient BASIC METABOLIC PANEL Routine 10/05/2023 2:15 PM CDT Type 2 diabetes mellitus with hyperglycemia, with long-term current use of insulin (HC) LIPID PANEL W REFLEX MEASURED LDL Routine 07/16/2023 2:59 PM CDT Uncontrolled type 2 diabetes mellitus with hyperglycemia (HC) COLONOSCOPY SCREENING Routine 03/16/2014 Colon cancer screening from Last 3 Months or Most Recently Relevant to Health Maintenance Results * (ABNORMAL) BASIC METABOLIC PANEL (12/10/2023 1:08 PM CDT) Only the most recent of2 resultswithin the time period is included. SODIUM 140 136 - 145 mmol/L 12/10/2023 1:40 PM [facility] POTASSIUM 4.0 3.5 - 5.1 mmol/L 12/10/2023 1:40 PM [facility] CHLORIDE 105 98 - 107 mmol/L 12/10/2023 1:40 PM [facility] CO2,TOTAL 25 22 - 29 mmol/L 12/10/2023 1:40 PM [facility] ANION GAP 10 5 - 18 12/10/2023 1:40 PM [facility] GLUCOSE 216(H) 70 - 99 mg/dL 12/10/2023 1:40 PM [facility] CALCIUM 9.2 8.8 - 10.2 mg/dL 12/10/2023 1:40 PM [facility] BUN 17 8 - 23 mg/dL 12/10/2023 1:40 PM [facility] CREATININE 0.76 0.70 - 1.20 mg/dL 12/10/2023 1:40 PM [facility] BUN/CREAT RATIO 22(H) 10 - 20 4 1:40 PM [facility] eGFR >90 >90 mL/min/1.7 3m2 12/10/2023 1:40 PM [facility] Comment:As of 2021, eG FR is calculated by the CKD-EPI creatinine equation without race adjustment. ??eGFR can be influenced by muscle mass, exercise, and diet. ??The reported eGFR is an estimation only and is only applicable if the renal function is stable. Blood BLOOD SPECIMEN / Unknown Venipuncture / Unknown 12/10/2023 1:08 PM CDT 12/10/2023 1:12 PM CDT Jono Roth MD CHEMISTRY Performing Organization Address [facility] Co de Phone Number [facility] [address] [place] [address] * ANTI HCV (10/05/2023 2:15 PM CDT) Pathologist [facility] HEPATITIS C ANTIBODY Non-Reacti ve Non-React mark 10/06/2023 12:41 PM CDT [facility] Comment:Please note, per www .CDC.gov: If a patient is known to be at high risk of HCV infection, or is symptomatic, and the physician's suspicion of HCV infection is high, HCV RNA testing is often employed and is of diagnostic value, even after an initial negative anti-HCV test result. Blood BLOOD SPECIMEN / Unknown Venipuncture / Unknown 10/05/2023 2:15 PM CDT 10/05/2023 2:15 PM CDT Amanda Aguirre DO SEND OUTS Performing Organization Address [facility]/ZIP Co de Phone Number [facility] [address] [place] [address], * (ABNORMAL) HEMOGLOBIN A1C MONITORING (POCT) (10/05/2023 2:15 PM CDT) Pathologist [facility] HEMOGLOBIN A1C MONITORING (POCT) 10.7(H) <=6.4 % 10/05/2023 2:35 PM CDT [facility] Blood BLOOD SPECIMEN / Unknown Venipuncture / Unknown 10/05/2023 2:15 PM CDT 10/05/2023 2:15 PM CDT Narrative [facility] - 10/05/2023 2:35 PM CDT ? (<=6.9%) ? Indicates good [...] Anemias, Splenectomy ? Amanda Aguirre DO CHEMISTRY [facility] [address] [place] [address] * (ABNORMAL) LIPID PANEL W REFLEX MEASURED LDL (07/16/2023 2:59 PM CDT) CHOLESTEROL,TOTAL 245(H) 100 - 199 mg/dL 07/16/2023 4:03 PM [facility] Comment: Cholesterol, Total Reference Ranges Desirable <200 mg/dL Borderline 200-239 mg/dL High >=240 mg/dL TRIGLYCERIDES 237(H) <150 mg/dL 07/16/2023 4:03 PM [facility] HDL CHOLESTEROL 56 >40 mg/dL 4:03 PM [facility] NON-HDL CHOLESTEROL 189(H) <145 mg/dl 07/16/2023 4:03 PM [facility] CHOL/HDL RATIO 4.38 <4.50 07/16/2023 4:03 PM [facility] LDL CHOLESTEROL 142(H) <=130 mg/dL 07/16/2023 4:03 PM [facility] VLDL CHOLESTEROL 47(H) <=30 mg/dL 07/16/2023 4:03 PM [facility] PROVIDER ORDERED STATUS RANDOM 07/16/2023 4:03 PM [facility] Blood BLOOD SPECIMEN / Unknown Venipuncture / Unknown 07/16/2023 2:59 PM CDT 07/16/2023 3:02 PM CDT Amanda Aguirre DO CHEMISTRY [facility] [address] [place] [address] * COLONOSCOPY SCREENING (03/16/2014) [facility] [...] Code Status Discussion: Not Discussed Care Teams Liquor Inspector Relationship Specialty Start Date End Date Amanda Aguirre DO [address] [facility] [place] [address] PCP - General Family Practice 07/02/23 Aidee Altman, RN [address] [facility] [place] [address] Office Machine Repair Shop Supervisor 08/18/13 Jono Roth MD [address] [address] Endocrinology 04/15/17 Nurses, Advanced Heart Failure [address] [place] [address] Advanced Heart Failure/Transplant Card 12/13/20 Dipak Matute MD [address] [address] Cardiology - CHF Cardiovascular Disease 12/13/20
[2023-12-23 20:00] VITALS: BP 177/82; PULSE 96; RESP 16; TEMP 36.2; O2SAT 96; BMI 26.3
--- NOTE | 2023-12-23 21:16 | ED_ITS ---
HPI - General Adult General Chief complaint: Unspecified Complaint, Adult Stated complaint: Elevated blood sugar 396+, tired Time Seen by Provider: 12/23/23 21:08 History of Present Illness HPI narrative: pt here for high blood sugar, been elevated for several days. pt took medications tonight. 58-year-old man presenting to the emergency department with complaint of fatigue and elevated blood sugar. Elevated blood sugars the primary reason for visit. Not having any pain. Started having some diarrhea this morning. No sore throat. No fever. No rashes. History of CVA and insulin-dependent diabetes. He continues to smoke. No shortness of breath. No chest pain. No cough. Urinary frequency but no dysuria. Accompanied here today by spouse? who says that she has taken over his medication management because he was not apparently accomplishing this. Related Data Home Medications ?Medication ?Instructions ?Recorded ?Confirmed atorvastatin 40 mg tablet 40 mg PO HS 04/28/22 12/31/23 carvedilol 12.5 mg tablet 12.5 mg PO DAILY 04/28/22 12/31/23 clopidogrel 75 mg tablet 75 mg PO DAILY 04/28/22 12/31/23 divalproex 500 mg tablet,delayed 500 mg PO Q12H 04/28/22 12/31/23 release losartan 25 mg tablet 25 mg PO DAILY 04/28/22 12/31/23 metformin 500 mg tablet,extended 1,000 mg PO BID 04/28/22 12/31/23 release 24 hr pregabalin 300 mg capsule 300 mg PO Q12H 04/28/22 12/31/23 tamsulosin 0.4 mg capsule 0.4 mg PO Q24H 04/28/22 12/31/23 fluoxetine 40 mg capsule 40 mg PO DAILY 07/06/23 12/31/23 insulin NPH-regular 70-30 U-100 50 unit subcut BID 07/06/23 12/31/23 insulin 100 unit/mL subcutaneous pen (Novolin 70-30 FlexPen U-100 Insulin) mirtazapine 30 mg tablet 30 mg PO HS 07/06/23 12/31/23 nitroglycerin 0.4 mg sublingual 0.4 mg sublingual Q5M PRN 07/06/23 12/31/23 tablet blood-glucose meter,continuous 12/31/23 12/31/23 (FreeStyle Fatuma 3 [place]) blood-glucose sensor (Dexcom G6 12/31/23 12/31/23 Sensor device) blood-glucose transmitter (Dexcom 12/31/23 12/31/23 G6 Transmitter device) duloxetine 30 mg capsule,delayed 30 mg PO DAILY 12/31/23 12/31/23 release Previous Rx's ?Medication ?Instructions ?Recorded insulin detemir U-100 100 unit/mL 10 unit (0.1 mL) subcut QHS #15 mL 07/07/23 (3 mL) subcutaneous pen (Levemir FlexPen) Allergies Allergy/AdvReac Type Severity Reaction Status Date / Time aspirin Allergy Verified 12/31/23 20:41 Review of Systems Status of ROS: Reports: 6 or more systems reviewed and unremarkable except as noted in History and below [facility] Medical History Insulin dependent diabetes mellitus Smoker ?F17.200 - Nicotine dependence, unspecified, uncomplicated (ICD-10) Diabetic neuropathy ?E11.40 - Type 2 diabetes mellitus with diabetic neuropathy, unspecified (ICD-10) Peripheral neuropathy ?G62.9 - Polyneuropathy, unspecified (ICD-10) BPH (benign prostatic hyperplasia) ?N40.0 - Benign prostatic hyperplasia without lower urinary tract symptoms (ICD-10) Hyperlipidemia ?E78.5 - Hyperlipidemia, unspecified (ICD-10) Hypertension ?I10 - Essential (primary) hypertension (ICD-10) CVA (cerebral vascular accident) ?I63.9 - Cerebral infarction, unspecified (ICD-10) Surgical History S/P appendectomy ?Z90.49 - Acquired absence of other specified parts of digestive tract (ICD- 10) S/P hernia repair ?Z98.890 - Other specified postprocedural states (ICD-10) ?Z87.19 - Personal history of other diseases of the digestive system (ICD-10) H/O: hemorrhoidectomy ?Z98.890 - Other specified postprocedural states (ICD-10) S/P cholecystectomy ?Z90.49 - Acquired absence of other specified parts of digestive tract (ICD- 10) Family History Father Heart disease Mother Heart disease Social History What is your current living situation?: I presently have a place to live Problems where you live: no known problems Problems where you live details: NA In the past 12 months, utilities in danger of being shut off: no In past 12 months, lack of transportation kept you from medical appts, meetings, work, or getting things needed for daily living: no In the past 12 mos, have been you worried that your food would run out before you had money to buy more?: never true In the past 12 mos, the food you bought just didn't last and you didn't have money to buy more?: never true Smoking Status: Current every day smoker What tobacco products do you use: cigarettes Smoking packs per day: 1 Smoking cigarettes per day: 20.0 Years smoked: 49 Smoking pack-years: 49.00 Do you use any of these nicotine containing products: None Second hand tobacco smoke exposure: No How often do you have a drink containing alcohol: never How often do you have six or more drinks on one occasion: Never AUDIT-C Alcohol total score: 0 Non-prescribed substance use: denies use Caffeine: Yes (5-6 pops/day) How often does anyone, including family, friends and others, physically hurt you : never How often does anyone, including family, friends and others, insult or talk down to you: never How often does anyone, including family, friends and others, threaten you with harm: never How often does anyone, including family, friends and others, scream or curse at you: never service: No Exam Narrative: Exam Narrative: Does appear fatigued. NAD. Oropharynx is moist edentulous. Holds left hand or arm somewhat stiffly consistent with CVA. Lower extremities are without edema maybe some trace pretibial. Well-perfused generally. Does smell of cigarette smoke. Lungs are clear. Heart in elevated rate regular rhythm. Distant. Abdomen is overweight soft and nontender. Const: Vital Signs, click to edit/add: Vital Signs - 24 hr 12/23/23 20:00 Temperature 97.1 F L Pulse Rate [Left P ulse Oximeter] 96 Respiratory Rate 16 Blood Pressure [Ri ght Upper Arm] 177/82 H Pulse Oximetry 96 Oxygen Delivery Me thod Room Air Documenting provider has reviewed patient's vital signs: yes Course Vital Signs Vital signs: Initial Vital Signs Temperature 97.1 F L 12/23/23 20:00 Temperature Source Temporal Artery Scan 12/23/23 20:00 Pulse Rate 96 12/23/23 20:00 Pulse Rhythm Regular 12/23/23 20:00 Respiratory Rate 16 12/23/23 20:00 Blood Pressure 177/82 H 12/23/23 20:00 Blood Pressure Mean 113 H 12/23/23 20:00 Blood Pressure Position Sitting 12/23/23 20:00 Pulse Oximetry 96 12/23/23 20:00 Oxygen Delivery Method Room Air 12/23/23 20:00 Vital Signs Temperature 97.1 F L 12/23/23 20:00 Pulse Rate 96 12/23/23 20:00 Respiratory Rate 16 12/23/23 20:00 Blood Pressure 177/82 H 12/23/23 20:00 Pulse Oximetry 96 12/23/23 20:00 Oxygen Delivery Method Room Air 12/23/23 20:00 Temperature 97.1 F L 12/23/23 20:00 Pulse Rate 96 12/23/23 20:00 Respiratory Rate 16 12/23/23 20:00 Blood Pressure 177/82 H 12/23/23 20:00 Pulse Oximetry 96 12/23/23 20:00 Oxygen Delivery Method Room Air 12/23/23 20:00 Medications Administered Medications: Discontinued Medications Generic Name Dose Route Start Last Admin Trade Name Freq PRN Reason Stop Dose Admin Sodium Chloride 1,000 mls @ 1,000 mls/hr 12/23/23 21:34 12/23/23 23:19 0.9 % Sodium Chloride 1000 Ml IV 12/23/23 22:33 Infused .Q1H ONE Infusion Sodium Chloride 1,000 mls @ 1,000 mls/hr 12/23/23 23:16 12/24/23 00:14 0.9 % Sodium Chloride 1000 Ml IV 12/24/23 00:15 Infused .Q1H ONE Infusion Insulin Human Regular 15 unit 12/24/23 00:16 12/24/23 01:30 Insulin Regular, Human 100 Unit/Ml Vial SUBCUT 12/24/23 00:17 Not Given ONCE ONE Medical Decision Making MDM Narrative Medical decision making narrative: will need to rehydrate. look for source of infection. Diarrhea may be source with an enteritis/colitis. doubt ketoacidosis Reports feeling much improved on hydration and wants to go home. No source of infection other marked abnormality identified. Other than blood sugar, labs are generally reassuring. No ketones in urine. Did have some question of evolving infiltrate in the right middle/lower lung but radiology notes normal and really Flavio does not have any respiratory symptoms. Perhaps this is simply an issue of poor medication management/compliance/dietary Emphasized need to regularly take medication. bs less than 200 before departure Medical Records Medical records reviewed: Yes I reviewed the patient's medical records Lab Data Lab results reviewed: Yes I reviewed the patient's lab results Labs: Lab Results 12/23/23 12/23/23 12/23/23 Range/Units 20:43 21:40 22:00 WBC 8.34 (4.50-11.00) K/uL RBC 5.98 H (4.30-5.90) m/uL Hgb 16.8 (13.5-17.5) gm/dL Hct 52.1 (37.0-53.0) % MCV 87 (80-100) fL MCH 28 (26-34) pg MCHC 32 (32-36) gm/dL RDW Coeff of Kenneth 13.0 (11.5-15.5) % Plt Count 185 (140-440) K/uL Neut % (Auto) 57.1 (42.0-72.0) % Lymph % (Auto) 32.1 (20-44) % Lipscomb % (Auto) 7.2 (0.0-11.0) % Eos % (Auto) 2.6 (0.0-7.0) % Baso % (Auto) 0.5 (0.0-3.0) % Neut # (Auto) 4.76 (1.7-7.0) K/uL Lymph # (Auto) 2.68 (0.90-2.90) K/uL Lipscomb # (Auto) 0.60 (0.00-0.90) K/UL Eos # (Auto) 0.22 (0.00-0.50) K/uL Baso # (Auto) 0.04 (0.00-0.30) K/uL Abs Immat Gran (auto) 0.04 (0.00-0.30) K/uL Imm/Tot Granulo (auto) 0.5 % Sodium 137 (135-149) mmol/L Potassium 4.1 (3.6-5.1) mmol/L Chloride 103 (96-114) mmol/L Carbon Dioxide 23 (20-32) mmol/L Anion Gap 11 (7-15) mEq/L BUN 18 (7-30) mg/dL Creatinine 0.7 (0.5-1.5) mg/dL Estimated Creat Clear 101.27 Estimated GFR 105 ml/min Glucose 387 H* (60-115) mg/dL Calcium 9.3 (8.4-10.6) mg/dL Total Bilirubin 0.4 (0.1-1.5) mg/dL Direct Bilirubin 0.2 (0.0-0.5) mg/dL AST 20 (12-35) U/L ALT 30 (4-50) U/L Alkaline Phosphatase 93 (40-150) U/L Total Protein 7.2 (6.0-8.3) g/dL Albumin 4.3 (3.3-5.0) g/dL Urine Color Yellow (Yellow) Urine Appearance Clear (Clear) Urine pH 5.0 (5.0-8.5) Ur Specific [place] 1.025 (1.000-1.030) Urine Protein 1+ A (Negative) Urine Glucose (UA) 2+ A (Negative) Urine Ketones Negative (Negative) Urine Blood Trace-intact A (Negative) Urine Nitrite Negative (Negative) Urine Bilirubin Negative (Negative) Urine Urobilinogen 0.2 (0.2-1.0) Ur Leukocyte Esterase Negative (Negative) Urine RBC 0-2 (0-2) Urine WBC 0-2 (0-5) Ur Squamous Epith Cells None (None-Few) Urine Bacteria None (None) SARS-CoV-2 (PCR) Negative SARS-CoV-2 (Negative) Influenza Type A (PCR) Negative PCR FLU A (Negative) Influenza Type B (PCR) Negative PCR FLU B (Negative) Discharge Plan Discharge Clinical Impression: Hyperglycemia, Diarrhea Patient Disposition: Home w/ Parent or Adult Condition: Improved Additional Instructions: Stay well-hydrated. I wonder if this diarrheal illness is what is contributing partly to your blood sugars being off. Do take your medications though as prescribed as well. Please follow-up with your primary care provider in about a week with regular checks of blood sugar. I would check in the morning while still fasting before breakfast and 2 hours after a meal during the same day. Do what you can to quit smoking. As long is not experiencing a fever or seeing blood in your stool, might try loperamide for diarrhea if needed Prescriptions: No Action carvedilol 12.5 mg tablet 12.5 mg PO DAILY metformin 500 mg tablet extended release 24 hr 1,000 mg PO BID divalproex 500 mg tablet,delayed release (DR/EC) 500 mg PO Q12H clopidogrel 75 mg tablet 75 mg PO DAILY atorvastatin 40 mg tablet 40 mg PO HS pregabalin 300 mg capsule 300 mg PO Q12H losartan 25 mg tablet 25 mg PO DAILY tamsulosin 0.4 mg capsule 0.4 mg PO Q24H duloxetine 30 mg capsule,delayed release(DR/EC) 30 mg PO DAILY (DME) Dexcom G6 Sensor Device MISCELLANEOUS Q10D (DME) FreeStyle Fatuma 3 [place] Misc MISCELLANEOUS DIRECTED (DME) Dexcom G6 Transmitter Device MISCELLANEOUS [id number] Novolin 70-30 FlexPen U-100 100 unit/mL (70-30) insulin pen 50 unit subcut BID fluoxetine 40 mg capsule 40 mg PO DAILY mirtazapine 30 mg tablet 30 mg PO HS nitroglycerin 0.4 mg tablet, sublingual 0.4 mg sublingual Q5M PRN Levemir FlexPen 100 unit/mL (3 mL) insulin pen 10 unit subcut QHS Qty: 15 0RF Follow Up/Referrals: Provider,Not a Local [Primary Care Provider] - Stand Alone Forms: [employer] Info Instructions
--- OUTSIDE RECORDS SUMMARY | 2023-12-23 21:26 | XMS_ITS | Clinical Summary ---
Author Organization [facility] Address [place], [place] [address] Care Team Providers Care Military Personnel Specialist Name Role Phone Aidee Altman RN Unavailable Jono Roth MD Unavailable [phone] Nurses, Advanced Heart Failure Unavailable + Dipak Matute MD Unavailable [phone] Amanda Aguirre DO Primary Care Provider Allergies [...] mg by mouth once daily. Active Insulin [place], Disposable, 32 gauge x Indications:T ype 2 [...] be used to read blood sugars, follow licensing engineer directions. 6 Each 3 4 Active [...] Department Care Team Description 12/23/2023 Nurse T[address] [phone] Amanda Aguirre, DO High Blood Sugar 12/22/[address] [address] Amanda Aguirre, needs meds 12/22/[address] [phone] Amanda Aguirre, Medication Management 12/18/2023 Orders Only [address] [place] [address] Amanda Aguirre, <No scans attached> 12/17/2023 10:47 AM CDT - 12/17/2023 11:59 PM CDT Hospital Encounter [facility] [address] [place] [address] Amanda Aguirre, Noreen Bradley, PT Acquired supination of foot, left; Hemiplegia affecting nondominant side (HC); History of stroke 12/17/2023 Travel 12/10/2023 1:05 PM CDT Office Visit [address] [place] [address] Amanda Aguirre, Diabetes (Pt is wondering if he can be put on Omni pod pt states pt is forgetful and isn't mindful with the insulin ) 12/10/2023 Travel 11/27/2023 Refill [facility] [address] [place] [address] Jono Roth MD Refill Request (lyrica) 11/17/2023 Telephone [facility] [address] [facility] [address] [place] [address] Hector Najera, PhD, LP Appointment 11/11/2023 Orders Only [facility] [address] [facility] [address] [place] [address] Jonny Raza CMA <No scans attached> 11/11/2023 Orders Only [facility] [address] [facility] [address] [place] [address] Jono Roth MD <No scans attached> 11/11/2023 Telephone [facility] [address] [facility] [address] [place] [address] Jono Roth MD 10/30/[address] [address] Amanda Aguirre, Refill Request (FLUoxetine [...] No/) 10/29/2023 2:00 PM CDT Patient Outreach [address] [address] Aidee Altman, superintendent maintenance airports (Follow-up ) 10/29/2023 Travel 10/19/[address] [phone] Amanda Aguirre DO Refill Request (Levemir flexpen, vitamin d, Divalproex Sod, mirtazapine and losartan ) 10/06/[address] [address] Amanda Aguirre, Refill Request (FLUoxetine (PROZAC) 40 mg capsule, clopidogreL (PLAVIX) 75 mg tablet, atorvastatin (LIPITOR) 40 mg tablet, tamsulosin (FLOMAX) 0.4 mg capsule) 10/05/2023 2:00 PM CDT Patient Outreach [address] [phone] Aidee Altman RN Diabetes (Follow-up) 10/05/2023 1:50 PM CDT Orders Only [address] [address] Lab, [facility] 10/05/2023 Travel from Last [...] Description 01/19/2024 2:00 PM CDT Office Visit [facility] [address] [place] [address] Amanda Aguirre DO [address] [place] [address] 03/23/2024 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 POTASSIUM 4.0 3.5 - 5.1 mmol/L 12/10/2023 1:[address] [facility] CHLORIDE 105 98 - 107 mmol/L 12/10/2023 1:[address] [facility] CO2,TOTAL 25 22 - 29 mmol/L 12/10/2023 1:[address] [facility] ANION GAP 10 5 - 18 12/10/2023 1:[address] [facility] GLUCOSE 216(H) 70 - 99 mg/dL 12/10/2023 1:[address] [facility] CALCIUM 9.2 8.8 - 10.2 mg/dL 12/10/2023 1:[address] [facility] BUN 17 8 - 23 mg/dL 12/10/2023 1:[address] [facility] CREATININE 0.76 0.70 - 1.20 mg/dL 12/10/2023 1:[address] [facility] BUN/CREAT RATIO 22(H) 10 - 20 4 1:[address] [facility] eGFR >90 >90 mL/min/1.7 3m2 12/10/2023 1:[address] [facility] Comment:As of 2021, eG [...] Jono Roth MD CHEMISTRY Performing Organization Address [facility] Co de Phone Number [facility] [address] [place] [address] * ANTI HCV (10/05/2023 2:15 PM CDT) Pathologist [facility] HEPATITIS C ANTIBODY Non-Reacti ve Non-React mark 10/06/2023 12:41 PM CDT [facility] Comment:Please note, per www .CDC.gov: [...] Aguirre DO SEND OUTS Performing Organization Address [facility]/ZIP Co de Phone Number [facility] [address] [place] [address], * (ABNORMAL) HEMOGLOBIN A1C MONITORING (POCT) (10/05/2023 2:15 PM CDT) Pathologist [facility] HEMOGLOBIN A1C MONITORING (POCT) 10.7(H) <=6.4 % 10/05/2023 2:35 PM CDT [facility] Blood BLOOD SPECIMEN / Unknown Venipuncture / Unknown 10/05/2023 2:15 PM CDT 10/05/2023 2:15 PM CDT Narrative [facility] - 10/05/2023 2:35 PM CDT ? [...] Anemias, Splenectomy ? Amanda Aguirre DO CHEMISTRY [facility] [address] [place] [address] * (ABNORMAL) LIPID PANEL W REFLEX MEASURED LDL (07/16/2023 2:59 PM CDT) CHOLESTEROL,TOTAL 245(H) 100 - 199 mg/dL 07/16/2023 4:[address] [facility] Comment: Cholesterol, Total Reference Ranges Desirable <200 mg/dL Borderline 200-239 mg/dL High >=240 mg/dL TRIGLYCERIDES 237(H) <150 mg/dL 07/16/2023 4:[address] [facility] HDL CHOLESTEROL 56 >40 mg/dL 4:[address] [facility] NON-HDL CHOLESTEROL 189(H) <145 mg/dl 07/16/2023 4:[address] [facility] CHOL/HDL RATIO 4.38 <4.50 07/16/2023 4:[address] [facility] LDL CHOLESTEROL 142(H) <=130 mg/dL 07/16/2023 4:[address] [facility] VLDL CHOLESTEROL 47(H) <=30 mg/dL 07/16/2023 4:[address] [facility] PROVIDER ORDERED STATUS RANDOM 07/16/2023 4:[address] [facility] Blood BLOOD SPECIMEN / Unknown Venipuncture / Unknown 07/16/2023 2:59 PM CDT 07/16/2023 3:02 PM CDT Amanda Aguirre DO CHEMISTRY [facility] [address] [place] [address] * COLONOSCOPY SCREENING (03/16/2014) Lincoln [facility] [...] Code Status Discussion: Not Discussed Care Teams Military Personnel Specialist Relationship Specialty Start Date End Date Amanda Aguirre DO [address] [facility] [place] [address] PCP - General Family Practice 07/02/23 Aidee Altman, RN [address] [facility] [place] [address] Launch Leader 08/18/13 Jono Roth MD [address] [address] Endocrinology 04/15/17 Nurses, Advanced Heart Failure [address] [place] [address] Advanced Heart Failure/Transplant Card 12/13/20 Dipak Matute MD [address] [address] Cardiology - CHF Cardiovascular Disease 12/13/20
[2023-12-23] MEDS: 0.9 % SODIUM CHLORIDE 1000 ml 1,000 ML IV ×2 (21:42→23:23)
[2023-12-23 21:47] LABS: Basophils Absolute Auto 0.04 K/uL (0.00-0.30); Basophils Percent Auto 0.5 % (0.0-3.0); Eosinophils Absolute Auto 0.22 K/uL (0.00-0.50); Eosinophils Percent Auto 2.6 % (0.0-7.0); Hematocrit 52.1 % (37.0-53.0); Hemoglobin* 16.8 gm/dL (13.5-17.5); Immature Granulocytes Abs Auto 0.04 K/uL (0.00-0.30); Immature Granulocytes Pct Auto 0.5 %; Lymphocytes Absolute Auto 2.68 K/uL (0.90-2.90); Lymphocytes Percent Auto 32.1 % (20-44); Mean Corpuscular HGB Conc 32 gm/dL (32-36); Mean Corpuscular Hemoglobin 28 pg (26-34); Mean Corpuscular Volume 87 fL (80-100); Monocytes Percent Auto 7.2 % (0.0-11.0); Neutrophils Absolute Auto 4.76 K/uL (1.7-7.0); Neutrophils Percent Auto 57.1 % (42.0-72.0); Platelet Count* 185 K/uL (140-440); Red Blood Count 5.98 m/uL (4.30-5.90); White Blood Count* 8.34 K/uL (4.50-11.00)
[2023-12-23 21:49] LABS: Slide Review Reflex No
[2023-12-23 21:55] LABS: Albumin* 4.3 g/dL (3.3-5.0); Chloride* 103 mmol/L (96-114); Potassium* 4.1 mmol/L (3.6-5.1); Sodium* 137 mmol/L (135-149)
[2023-12-23 21:57] LABS: Anion Gap 11 mEq/L (7-15); Carbon Dioxide* 23 mmol/L (20-32); Creatinine* 0.7 mg/dL (0.5-1.5); Est. Creatinine Clearance* 101.27; Estimated Glomerular Filt Rate 105 ml/min
[2023-12-23 21:58] LABS: Alanine Aminotransferase* 30 U/L (4-50); Alkaline Phosphatase* 93 U/L (40-150); Aspartate Amino Transferase* 20 U/L (12-35); Bilirubin Direct* 0.2 mg/dL (0.0-0.5); Bilirubin Total* 0.4 mg/dL (0.1-1.5); Blood Urea Nitrogen* 18 mg/dL (7-30); Calcium* 9.3 mg/dL (8.4-10.6); Total Protein* 7.2 g/dL (6.0-8.3)
[2023-12-23 22:00] LABS: Glucose* 387 mg/dL (60-115)
[2023-12-23 22:13] LABS: Appearance Urine Clear (Clear); Bilirubin Urine Negative (Negative); Blood Urine Trace-intact (Negative); Color Urine Yellow (Yellow); Glucose Urine 2+ (Negative); Ketones Urine Negative (Negative); Leukocyte Esterase Urine Negative (Negative); Nitrite Urine Negative (Negative); Protein Urine 1+ (Negative); Specific Gravity Urine 1.025 (1.000-1.030); Urobilinogen Urine 0.2 (0.2-1.0)
[2023-12-23 22:18] LABS: RBC Urine 0-2 (0-2); WBC Urine 0-2 (0-5)
[2023-12-23 22:20] LABS: PCR FLU A Negative PCR FLU A (Negative); PCR FLU B Negative PCR FLU B (Negative); SARS PCR* Negative SARS-CoV-2 (Negative)
--- NOTE | 2023-12-23 23:36 | CRLHL7_ITS ---
For Patients: As a result of the Century Cures Act, medical imaging exams and procedure reports are released immediately into your electronic medical record. You may view this report before your referring provider. If you have questions, please contact your health care provider. INDICATION: Fatigue, hyperglycemia TECHNIQUE: Chest radiograph 1 view COMPARISON: None FINDINGS: The sensitivity and specificity of the exam are moderately limited by the patient`s body habitus. Mediastinum: The mediastinum is normal in appearance. The heart silhouette is normal in size and morphology. Lung: Mild pulmonary vascular congestion is noted. No sign of pleural effusion seen. No pneumothorax is identified. Bone and Soft tissue: Unremarkable for age. IMPRESSION: 1. Mild pulmonary vascular congestion is noted. Dictated by John Scruggs MD @ 12/24/2023 12:12:44 AM Dictated by: John Scruggs MD @ 12/24/2023 00:12:47 (Electronically Signed)
== END 2023-12-24 01:37 | disposition home or self-care (01) ==
PROVIDERS: Emergency Provider Family Medicine
DX: E11.65 Type 2 diabetes mellitus with hyperglycemia (principal); R19.7 Diarrhea, unspecified
CPT/HCPCS: 36415; 71045; 80048; 80076; 81001; 82962; 85025; 87631; 99284; J7030

== ENCOUNTER 2023-12-31 20:04 | Outpatient (CLI) | payer MEDICARE, SELFPAY ==
--- OUTSIDE RECORDS SUMMARY | 2024-01-02 05:51 | XMS_ITS | Clinical Summary ---
Author Organization [employer] [facility] [employer] [facility] Address [place], [place] [address] Care Team Providers Care Petrology Teacher Name Role Phone Aidee Altman RN Unavailable Jono Roth MD Unavailable [phone] Nurses, Advanced Heart Failure Unavailable + Dipak Matute MD Unavailable [phone] Amanda Aguirre DO Primary Care Provider Allergies [...] mg by mouth once daily. Active Insulin [place], Disposable, 32 gauge x Indications:T ype 2 [...] be used to read blood sugars, follow masonry teacher directions. 6 Each 3 4 Active atorvastatin [...] 90 days 1 Each 3 4 Active insulin aspart U-100 (NOVOLOG) 100 unit/mL injectionIndicatio ns:Type 2 diabetes mellitus with hyperglycemia, with long-term current use of insulin (HC) Inject 28 units subcutaneous every 24 hours. fill omnipod, 28units/24 hr total daily dose. 10 mL 3 4 Active nitroglycerin (NITROSTAT) 0.4 mg sublingual tabletIndications: Acute on chronic systolic congestive heart failure (HC) Place 1 Tablet (0.4 mg) under the tongue every 5 minutes if needed for Chest Pain (max 3 doses then call 911). 28 Tablet 5 3 12/10/19 Discontinu ed(Reorder (E-cancel not sent)) FLUoxetine (PROZAC) [...] Department Care Team Description 12/29/2023 Orders Only [address] [phone] Amanda Aguirre, DO <No scans attached> 12/29/[address] [address] Amanda Aguirre, Follow Up (Return Call ) 12/25/[address] [address] Amanda Aguirre DO Follow Up (questions ) 12/23/2023 Nurse Triage [address] [phone] Amanda Aguirre DO High Blood Sugar 12/22/[address] [address] Amanda Aguirre DO needs meds ; Follow Up (need medication) 12/22/[address] [address] Amanda Aguirre DO Medication Management 12/18/2023 Orders Only [address] [address] Amanda Aguirre, <No scans attached> 12/17/2023 10:47 AM CDT - 12/17/2023 11:59 PM CDT Hospital Encounter [facility] [address] [place] [address] Amanda Aguirre, Noreen Bradley, PT Acquired supination of foot, left; Hemiplegia affecting nondominant side (HC); History of stroke 12/17/2023 Travel 12/10/2023 1:05 PM CDT Office Visit [address] [address] Amanda Aguirre, Diabetes (Pt is wondering if he can be put on Omni pod pt states pt is forgetful and isn't mindful with the insulin ) 12/10/2023 Travel 11/27/2023 Refill [facility] [address] [facility] [address] [place] [address] Jono Roth MD Refill Request (lyrica) 11/17/2023 Telephone [facility] [address] [place] [address] Hector Najera, PhD, LP Appointment 11/11/2023 Orders Only [facility] [address] [facility] [address] [place] [address] Jonny Raza CMA <No scans attached> 11/11/2023 Orders Only [facility] [address] [facility] [address] [place] [address] Jono Roth MD <No scans attached> 11/11/2023 Telephone [facility] [address] [facility] [address] [place] [address] Jono Roth MD 10/30/[address] [address] Amanda Aguirre DO Refill Request (FLUoxetine (PROZAC) [...] No/) 10/29/2023 2:00 PM CDT Patient Outreach [address] [place] [address] Aidee Altman RN Diabetes (Follow-up ) 10/29/2023 Travel 10/19/[address] [place] [address] Amanda Aguirre, DO Refill Request (Levemir flexpen, vitamin d, Divalproex Sod, mirtazapine and losartan ) 10/06/[address] [place] [address] Amanda Aguirre, DO Refill Request (FLUoxetine (PROZAC) 40 mg capsule, clopidogreL (PLAVIX) 75 mg tablet, atorvastatin (LIPITOR) 40 mg tablet, tamsulosin (FLOMAX) 0.4 mg capsule) 10/05/2023 2:00 PM CDT Patient Outreach [address] [place] [address] Aidee Altman field engineer (Follow-up) 10/05/2023 1:50 PM CDT Orders Only [address] [place] [address] Lab, [facility] 10/05/2023 Travel from Last [...] Description 01/19/2024 2:00 PM CDT Office Visit [facility] [address] [place] [address] Amanda Aguirre DO [address] [place] [address] 03/23/2024 1:10 PM MULTIPLE DRUM SANDER HELPER Office Visit [facility] [address] [place] [address] Jono Roth MD [address] [place] [address] Health Maintenance Due Date Last Done Comments [...] 136 - 145 mmol/L 12/10/2023 1:40 PM [facility] POTASSIUM 4.0 3.5 - 5.1 mmol/L 12/10/2023 1:40 PM [facility] CHLORIDE 105 98 - 107 mmol/L 12/10/2023 1:40 PM [facility] CO2,TOTAL 25 22 - 29 mmol/L 12/10/2023 1:40 PM [facility] ANION GAP 10 5 - 18 12/10/2023 1:40 PM [facility] GLUCOSE 216(H) 70 - 99 mg/dL 12/10/2023 1:40 PM [facility] CALCIUM 9.2 8.8 - 10.2 mg/dL 12/10/2023 1:40 PM [facility] BUN 17 8 - 23 mg/dL 12/10/2023 1:40 PM [facility] CREATININE 0.76 0.70 - 1.20 mg/dL 12/10/2023 1:40 PM CDT [facility] BUN/CREAT RATIO 22(H) 10 - 20 1:40 PM CDT [facility] eGFR >90 >90 mL/min/1.7 3m2 12/10/2023 1:40 PM CDT [facility] Comment:As of 2021, eG FR [...] Jono Roth MD CHEMISTRY Performing Organization Address City/[facility]/ZIP Co de Phone Number [facility] [address] [place] [address] * ANTI HCV (10/05/2023 2:15 PM CDT) HEPATITIS C ANTIBODY Non-Reacti ve Non-React mark 10/06/2023 12:41 PM CDT [facility] Comment:Please note, per www .CDC.gov: [...] Aguirre DO SEND OUTS Performing Organization Address City/[facility]/ZIP Co de Phone Number [facility] [address] [place] [address], [place] * (ABNORMAL) HEMOGLOBIN A1C MONITORING (POCT) (10/05/2023 2:15 PM CDT) [facility] HEMOGLOBIN A1C MONITORING (POCT) 10.7(H) <=6.4 % 10/05/2023 2:35 PM CDT [facility] Blood BLOOD SPECIMEN / Unknown Venipuncture / Unknown 10/05/2023 2:15 PM CDT 10/05/2023 2:15 PM CDT Narrative [facility] - 10/05/2023 2:35 PM CDT [...] Amanda Aguirre DO CHEMISTRY Performing Organization Address City/State/[facility] Co de Phone Number [facility] [address] [place] [address] * (ABNORMAL) LIPID PANEL W REFLEX MEASURED LDL (07/16/2023 2:59 PM CDT) [facility] CHOLESTEROL,TOTAL 245(H) 100 - 199 mg/dL 07/16/2023 4:03 PM T [facility] Comment: Cholesterol, Total Reference Ranges Desirable <200 mg/dL Borderline 200-239 mg/dL High >=240 mg/dL TRIGLYCERIDES 237(H) <150 mg/dL 07/16/2023 4:03 PM [facility] HDL CHOLESTEROL 56 >40 mg/dL 4:03 PM T [facility] NON-HDL CHOLESTEROL 189(H) <145 mg/dl 07/16/2023 4:03 PM [facility] CHOL/HDL RATIO 4.38 <4.50 07/16/2023 4:03 PM CDT [facility] LDL CHOLESTEROL 142(H) <=130 mg/dL 07/16/2023 4:03 PM CDT [facility] VLDL CHOLESTEROL 47(H) <=30 mg/dL 07/16/2023 4:03 PM CDT [facility] PROVIDER ORDERED STATUS RANDOM 07/16/2023 4:03 PM CDT [facility] Blood BLOOD SPECIMEN / Unknown Venipuncture / Unknown 07/16/2023 2:59 PM CDT 07/16/2023 3:02 PM CDT Amanda Aguirre DO CHEMISTRY [facility] [address] [place] [address] * COLONOSCOPY SCREENING (03/16/2014) Lincoln Hanna DO [...] Code Status Discussion: Not Discussed Care Teams Petrology Teacher Relationship Specialty Start Date End Date Amanda Aguirre DO [address] [place] [address] PCP - General Family Practice 07/02/23 Aidee Altman RN [address] [facility] [address] [place] [address] Master Craftsman 08/18/13 Jono Roth MD [address] [address] Endocrinology 04/15/17 Nurses, Advanced Heart Failure [address], [place] [address] Advanced Heart Failure/Transplant Card 12/13/20 Dipak Matute MD [address] [facility] [address] [place] [address] Cardiology - CHF Cardiovascular Disease 12/13/20
== END 2023-12-31 20:05 | disposition home or self-care (01) ==
LOC: AMB 01-02 05:48
PROVIDERS: Visit Provider Family Medicine
DX: R41.82 Altered mental status, unspecified (principal); R51.9 Headache, unspecified; R53.1 Weakness
CPT/HCPCS: A0425; A0427

== ENCOUNTER 2023-12-31 20:32 | Emergency (ER) | payer MEDICARE, SELFPAY ==
[2023-12-31] VITALS (13 sets, daily range): BP systolic 112–133; BP diastolic 74–103; PULSE 70–101; RESP 18; TEMP 36.7; O2SAT 80–96; BMI 26.3
--- NOTE | 2023-12-31 21:19 | ED_ITS ---
HPI - Neuro Symptoms/Deficit General Time Seen by Provider: 21:19 Date Seen: 12/31/23 Chief Complaint: Neuro Symptoms/Altered Deficit Stated Complaint: ill Time Seen by Provider: 12/31/23 21:19 Source: patient Mode of arrival: EMS Limitations: no limitations History of Present Illness HPI Narrative: Flavio is a 58-year-old diabetic with history of left-sided CVA who is brought to the emergency room by EMS for episode of slurred speech and vomiting with diarrhea. Flavio states he has had diarrhea over the past couple days and started vomiting today. Evening his daughter gave him 10 units of insulin and Flavio's fiancee said that he was supposed to have 15 and thus she gave him another 5 units. He then began experiencing some slurred words and she because of a history of CVA they did call EMS. EMS thus brings into the hospital. At this time his slurred speech is resolved. According to his fiancee he is acting more tired than normal but otherwise speech is normal. They have been dealing with elevated blood sugars over the past few days. Today the blood sugars have been too high to measure at times. Upon arrival blood sugar was elevated over 350. Von reports burning in his stomach. He has residual left arm and left leg weakness from a stroke in the past. This is not worse today. He denies cough cold congestion or runny nose. He is asking if we plan on keeping him here tonight. Denies blood in stool. Does have a history of appendectomy at 11 years of age. Denies abdominal distension. Patient does continue to smoke. Denies alcohol use Related Data Home Medications ?Medication ?Instructions ?Recorded ?Confirmed atorvastatin 40 mg tablet 40 mg PO HS 04/28/22 12/31/23 carvedilol 12.5 mg tablet 12.5 mg PO DAILY 04/28/22 12/31/23 clopidogrel 75 mg tablet 75 mg PO DAILY 04/28/22 12/31/23 divalproex 500 mg tablet,delayed 500 mg PO Q12H 04/28/22 12/31/23 release losartan 25 mg tablet 25 mg PO DAILY 04/28/22 12/31/23 metformin 500 mg tablet,extended 1,000 mg PO BID 04/28/22 12/31/23 release 24 hr pregabalin 300 mg capsule 300 mg PO Q12H 04/28/22 12/31/23 tamsulosin 0.4 mg capsule 0.4 mg PO Q24H 04/28/22 12/31/23 fluoxetine 40 mg capsule 40 mg PO DAILY 07/06/23 12/31/23 insulin NPH-regular 70-30 U-100 50 unit subcut BID 07/06/23 12/31/23 insulin 100 unit/mL subcutaneous pen (Novolin 70-30 FlexPen U-100 Insulin) mirtazapine 30 mg tablet 30 mg PO HS 07/06/23 12/31/23 nitroglycerin 0.4 mg sublingual 0.4 mg sublingual Q5M PRN 07/06/23 12/31/23 tablet blood-glucose meter,continuous 12/31/23 12/31/23 ([employer] Fatuma 3 Beverly) blood-glucose sensor ([employer] G6 12/31/23 12/31/23 Sensor device) blood-glucose transmitter (Dexcom 12/31/23 12/31/23 G6 Transmitter device) duloxetine 30 mg capsule,delayed 30 mg PO DAILY 12/31/23 12/31/23 release Previous Rx's ?Medication ?Instructions ?Recorded insulin detemir U-100 100 unit/mL 10 unit (0.1 mL) subcut QHS #15 mL 07/07/23 (3 mL) subcutaneous pen (Levemir FlexPen) Allergies Allergy/AdvReac Type Severity Reaction Status Date / Time aspirin Allergy Verified 12/31/23 20:41 Review of Systems Status of ROS: Reports: 10 or more systems reviewed and unremarkable except as noted in History and below Const: Reports: chills and fatigue; Denies: fever Eyes: Denies: change in vision ENMT: Denies: throat pain, neck pain, throat swelling or nasal congestion Cardio: Reports: lightheadedness; Denies: chest pain, swelling of feet/ankles or shortness of breath with exertion Resp: Denies: shortness of breath or cough GI: Reports: abdominal pain, nausea, vomiting and diarrhea; Denies: blood in stool : Denies: painful urination Musculo: Denies: neck pain Neuro: Reports: weakness in extremities (Chronic and unchanged); Denies: headache or numbness in extremities Endo: Reports: fatigue Allergy/Immuno: Denies: throat swelling PFSH PFS Medical History Insulin dependent diabetes mellitus Smoker ?F17.200 - Nicotine dependence, unspecified, uncomplicated (ICD-10) Diabetic neuropathy ?E11.40 - Type 2 diabetes mellitus with diabetic neuropathy, unspecified (ICD-10) Peripheral neuropathy ?G62.9 - Polyneuropathy, unspecified (ICD-10) BPH (benign prostatic hyperplasia) ?N40.0 - Benign prostatic hyperplasia without lower urinary tract symptoms (ICD-10) Hyperlipidemia ?E78.5 - Hyperlipidemia, unspecified (ICD-10) Hypertension ?I10 - Essential (primary) hypertension (ICD-10) CVA (cerebral vascular accident) ?I63.9 - Cerebral infarction, unspecified (ICD-10) Surgical History S/P appendectomy ?Z90.49 - Acquired absence of other specified parts of digestive tract (ICD- 10) S/P hernia repair ?Z98.890 - Other specified postprocedural states (ICD-10) ?Z87.19 - Personal history of other diseases of the digestive system (ICD-10) H/O: hemorrhoidectomy ?Z98.890 - Other specified postprocedural states (ICD-10) S/P cholecystectomy ?Z90.49 - Acquired absence of other specified parts of digestive tract (ICD- 10) Family History Father Heart disease Mother Heart disease Social History What is your current living situation?: I presently have a place to live Problems where you live: no known problems Problems where you live details: NA In the past 12 months, utilities in danger of being shut off: no In past 12 months, lack of transportation kept you from medical appts, meetings, work, or getting things needed for daily living: no In the past 12 mos, have been you worried that your food would run out before you had money to buy more?: never true In the past 12 mos, the food you bought just didn't last and you didn't have money to buy more?: never true Smoking Status: Current every day smoker What tobacco products do you use: cigarettes Smoking packs per day: 1 Smoking cigarettes per day: 20.0 Years smoked: 49 Smoking pack-years: 49.00 Do you use any of these nicotine containing products: None Second hand tobacco smoke exposure: No How often do you have a drink containing alcohol: never How often do you have six or more drinks on one occasion: Never AUDIT-C Alcohol total score: 0 Non-prescribed substance use: denies use Caffeine: Yes (5-6 pops/day) How often does anyone, including family, friends and others, physically hurt you : never How often does anyone, including family, friends and others, insult or talk down to you: never How often does anyone, including family, friends and others, threaten you with harm: never How often does anyone, including family, friends and others, scream or curse at you: never service: No Exam Narrative: Exam Narrative: Flavio is awake and oriented. Appears fatigued in appearance but nontoxic. Somewhat disheveled at this time. Eyes are clear. He is accompanied by his fiancee who is very loving and supportive. Neck is supple. Mucous membranes somewhat tacky. Heart with a regular rate and rhythm and lungs are clear bilaterally but with rather distant breath sounds. Abdomen is protruded [place] it is somewhat firm. Diffuse discomfort noted with palpation. Well-healed scar right lower quadrant. Lower extremities are thin. He is moving all of his extremities but he does have weakness especially in his left arm. This is chronic for him. Const: Vital Signs, click to edit/add: Vital Signs - 24 hr 12/31/23 20:35 12/31/23 20:47 12/31/23 20:48 Temperature 98.1 F Pulse Rate 91 91 Pulse Rate [Pulse Oximeter] 88 Respiratory Rate 18 Blood Pressure 130/103 H Blood Pressure [Ri ght Upper Arm] 127/103 H Pulse Oximetry 94 90 90 Oxygen Delivery Me thod Room Air 12/31/23 21:00 12/31/23 21:01 12/31/23 21:30 Temperature Pulse Rate 87 87 91 Pulse Rate [Pulse Oximeter] Respiratory Rate Blood Pressure 112/75 Blood Pressure [Ri ght Upper Arm] Pulse Oximetry 96 96 93 Oxygen Delivery Me thod 12/31/23 21:32 12/31/23 21:42 12/31/23 22:00 Temperature Pulse Rate 88 87 Pulse Rate [Pulse Oximeter] Respiratory Rate Blood Pressure 133/96 H Blood Pressure [Ri ght Upper Arm] Pulse Oximetry 91 94 96 Oxygen Delivery Me thod 12/31/23 22:02 12/31/23 22:31 12/31/23 22:58 Temperature Pulse Rate 70 Pulse Rate [Pulse Oximeter] Respiratory Rate Blood Pressure 116/74 112/74 Blood Pressure [Ri ght Upper Arm] Pulse Oximetry 96 96 Oxygen Delivery Me thod 12/31/23 23:03 Temperature Pulse Rate 101 H Pulse Rate [Pulse Oximeter] Respiratory Rate Blood Pressure Blood Pressure [Ri ght Upper Arm] Pulse Oximetry 80 L Oxygen Delivery Me thod Documenting provider has reviewed patient's vital signs: yes Course Course ED Course: Differential diagnosis includes but is not limited to DKA, diverticulitis, colitis, bowel obstruction, viral gastroenteritis. Will place IV and give 1 L of normal saline as well as Zofran and check CBC, comprehensive panel, CRP, lactate, urinalysis plan on chest abdomen and pelvic CT. At this point should plan on admission given patient's history. Reevaluation(s) Reevaluation #1: Patient noted to be feeling better after fluids. White count is reassuring as is electrolyte panel with normal potassium normal bicarb and normal creatinine. Glucose is elevated at 318 with a lactate of 2.5 but pH within normal limits. CRP is normal. Urinalysis with no evidence of UTI. COVID influenza and RSV negative. 5 units of regular insulin ordered. Vital Signs Vital signs: Initial Vital Signs Temperature 98.1 F 12/31/23 20:35 Temperature Source Temporal Artery Scan 12/31/23 20:35 Pulse Rate 88 12/31/23 20:35 Pulse Rhythm Regular 12/31/23 20:35 Pulse Strength 3+ Normal 12/31/23 20:35 Respiratory Rate 18 12/31/23 20:35 Blood Pressure 127/103 H 12/31/23 20:35 Blood Pressure Mean 111 H 12/31/23 20:35 Blood Pressure Position Supine 12/31/23 20:35 Pulse Oximetry 94 12/31/23 20:35 Oxygen Delivery Method Room Air 12/31/23 20:35 Vital Signs Temperature 98.1 F 12/31/23 20:35 Pulse Rate 88 12/31/23 20:35 Respiratory Rate 18 12/31/23 20:35 Blood Pressure 127/103 H 12/31/23 20:35 Pulse Oximetry 94 12/31/23 20:35 Oxygen Delivery Method Room Air 12/31/23 20:35 Temperature 98.1 F 12/31/23 20:35 Pulse Rate 101 H 12/31/23 23:03 Respiratory Rate 18 12/31/23 20:35 Blood Pressure 112/74 12/31/23 22:31 Pulse Oximetry 80 L 12/31/23 23:03 Oxygen Delivery Method Room Air 12/31/23 20:35 Medications Administered Medications: Discontinued Medications Generic Name Dose Route Start Last Admin Trade Name Noam PRN Reason Stop Dose Admin Sodium Chloride 1,000 mls @ 1,000 mls/hr 12/31/23 21:29 12/31/23 23:35 0.9 % Sodium Chloride 1000 Ml IV 12/31/23 22:28 Infused .Q1H ROSE Infusion Insulin Human Regular 6 unit 12/31/23 23:02 12/31/23 23:31 Insulin Regular, Human 100 Unit/Ml Vial IVP 12/31/23 23:03 6 unit ONCE ONE Administration Ondansetron HCl 4 mg 12/31/23 21:29 12/31/23 21:43 Ondansetron 2 Mg/Ml Inj IVP 12/31/23 21:30 4 mg ONCE ONE Administration MDM - Neuro Symptoms/Deficit MDM Narrative Medical decision making narrative: 1. Nausea vomiting and diarrhea-CT of the abdomen shows no evidence of colitis or bowel obstruction. Patient improved after Zofran 4 mg and IV fluids. At this time labs are reassuring and do not have reason to admit to the hospital. Von is also comfortable going home. Zofran 4 mg ODT given out with [employer]. Unfortunately, patient had departed prior to Zofran prescription being available. This has been printed out in his awaiting him if he would need to return. Will alert Von's fiance of this. Suggest pushing fluids. 2. Hyperglycemia-fortunately no evidence of DKA or hyperosmolar hyperglycemia. Patient has been experiencing elevated blood sugars that were too high to measure at home. Upon arrival his monitor stated he was at 380 and are test was 344. Glucose check after 5 units of IV insulin given noted blood sugar to be 208 but already it has fallen to 175 per his monitor. Von was able T does sandwich without difficulty. I asked that they recheck prior to him going to bed is a certainly do not want his blood sugar to go too low. He is in agreement with this. 3 slurred speech-resolved prior to arrival. Patient has a history of a left- sided stroke. CT tonight reassuring with no new findings. 4. Disposition-home at this time. Von in his fisoheilae both feel comfortable going home. Just paty states they were 2 people that are therefore him and monitoring him. Return for worsening symptoms. Medical Records Attestation: I reviewed the patient's medical records. Lab Data Attestation: I reviewed the patient's lab results. Labs: Lab Results 12/31/23 12/31/23 01/01/24 Range/Units 21:29 21:43 00:00 WBC 6.95 (4.50-11.00) K/uL RBC 5.39 (4.30-5.90) m/uL Hgb 15.3 (13.5-17.5) gm/dL Hct 46.9 (37.0-53.0) % MCV 87 (80-100) fL MCH 28 (26-34) pg MCHC 33 (32-36) gm/dL RDW Coeff of Kenneth 13.0 (11.5-15.5) % Plt Count 160 (140-440) K/uL Neut % (Auto) 52.1 (42.0-72.0) % Lymph % (Auto) 34.7 (20-44) % [place] % (Auto) 9.1 (0.0-11.0) % Eos % (Auto) 3.5 (0.0-7.0) % Baso % (Auto) 0.3 (0.0-3.0) % Neut # (Auto) 3.63 (1.7-7.0) K/uL Lymph # (Auto) 2.41 (0.90-2.90) K/uL [place] # (Auto) 0.60 (0.00-0.90) K/UL Eos # (Auto) 0.24 (0.00-0.50) K/uL Baso # (Auto) 0.02 (0.00-0.30) K/uL Abs Immat Gran (auto) 0.02 (0.00-0.30) K/uL Imm/Tot Granulo (auto) 0.3 % VBG pH 7.402 (7.32-7.43) VBG pCO2 45 (40-50) mmHG VBG pO2 37.0 (25-47) mmHG VBG HCO3 28 (21-28) mmol/L Sodium 138 (135-149) mmol/L Potassium 4.3 (3.6-5.1) mmol/L Chloride 105 (96-114) mmol/L Carbon Dioxide 26 (20-32) mmol/L Anion Gap 7 (7-15) mEq/L BUN 14 (7-30) mg/dL Creatinine 0.6 (0.5-1.5) mg/dL Estimated Creat Clear 118.15 Estimated GFR 111 ml/min Glucose 318 H (60-115) mg/dL Lactate 2.5 H (0.5-1.9) mmol/L Calcium 8.8 (8.4-10.6) mg/dL Total Bilirubin 0.3 (0.1-1.5) mg/dL AST 20 (12-35) U/L ALT 36 (4-50) U/L Alkaline Phosphatase 92 (40-150) U/L C-Reactive Protein < 0.5 L (0.5-1.0) mg/dL Total Protein 6.6 (6.0-8.3) g/dL Albumin 4.0 (3.3-5.0) g/dL Urine Color Yellow (Yellow) Urine Appearance Clear (Clear) Urine pH 6.0 (5.0-8.5) Ur Specific [place] 1.020 (1.000-1.030) Urine Protein Trace A (Negative) Urine Glucose (UA) 3+ A (Negative) Urine Ketones Negative (Negative) Urine Blood Trace-lysed A (Negative) Urine Nitrite Negative (Negative) Urine Bilirubin Negative (Negative) Urine Urobilinogen 0.2 (0.2-1.0) Ur Leukocyte Esterase Negative (Negative) Urine RBC 0-2 (0-2) Urine WBC 0-2 (0-5) Ur Squamous Epith Cells None (None-Few) Urine Bacteria None (None) SARS-CoV-2 (PCR) Negative SARS-CoV-2 (Negative) Influenza Type A (PCR) Negative PCR FLU A (Negative) Influenza Type B (PCR) Negative PCR FLU B (Negative) RSV (PCR) Negative PCR RSV (Negative) POC Glucose 208 H (60-115) mg/dl Imaging Data CT Chest/Ab/Pelvis: Radiologist's impression: Cardiovascular structures: Heart size is normal. Thoracic aorta and main pulmonary artery are normal in caliber. Mediastinum and eunice: No mass or adenopathy. Lungs and pleura: 1.7 cm calcified granuloma within the right apex. The lungs are otherwise clear. No pleural effusion or pneumothorax. Chest wall and axilla: No mass or adenopathy. Bones: No suspicious bone lesions. Old left 4th rib fracture. Otherwise, unremarkable for age. ABDOMEN AND PELVIS: Liver: Unremarkable. Gallbladder and bile ducts: Status post cholecystectomy. No abnormal biliary ductal dilatation. Pancreas: Unremarkable. Spleen: Unremarkable. Adrenal glands: Unremarkable. Kidneys: Unremarkable. GI tract: Unremarkable. The appendix is not clearly visualized Vascular structures: Normal caliber abdominal aorta with mild atherosclerotic calcification. Lymph nodes: Unremarkable. Miscellaneous: Unremarkable. No free air or significant free fluid. Pelvic Organs: Mild prostatomegaly. Bones: No suspicious bone lesions. Unremarkable for age. IMPRESSION: No acute findings within the chest, abdomen, or pelvis. CT scan - head: Attestation: I have reviewed the pertinent imaging results. My impression: I do not note any acute findings Radiologist's impression: CSF space: Mild ex vacuo dilatation of the right frontal horn is noted. Brain: Encephalomalacia is present within the right frontal lobe, frontal lobe operculum, and right basal ganglia without interval change. A small chronic lacunar infarct is present in the superior left cerebellar hemisphere and right basal ganglia. No mass-effect or midline shift is seen. Calvarium: The visualized paranasal sinuses are well aerated. The mastoid air cells are clear. The visualized orbits are grossly unremarkable. The calvarium is unremarkable in appearance with no fractures identified. IMPRESSION: 1. No evidence of acute infarction, intracranial hemorrhage, or mass-effect seen Discharge Plan Discharge Clinical Impression: Combined abdominal pain, vomiting, and diarrhea, Hyperglycemia Patient Disposition: Home, Self-Care Condition: Improved Additional Instructions: Continue monitoring blood sugar. You may need to give extra insulin. Push fluids and stay well hydrated. Return to the emergency room for worsening symptoms. Prescriptions: No Action carvedilol 12.5 mg tablet 12.5 mg PO DAILY metformin 500 mg tablet extended release 24 hr 1,000 mg PO BID divalproex 500 mg tablet,delayed release (DR/EC) 500 mg PO Q12H clopidogrel 75 mg tablet 75 mg PO DAILY atorvastatin 40 mg tablet 40 mg PO HS pregabalin 300 mg capsule 300 mg PO Q12H losartan 25 mg tablet 25 mg PO DAILY tamsulosin 0.4 mg capsule 0.4 mg PO Q24H duloxetine 30 mg capsule,delayed release(DR/EC) 30 mg PO DAILY (DME) Dexcom G6 Sensor Device MISCELLANEOUS Q10D (DME) [employer] Fatuma 3 [place] Misc MISCELLANEOUS DIRECTED (DME) Dexcom G6 Transmitter Device MISCELLANEOUS [id number] Novolin 70-30 FlexPen U-100 100 unit/mL (70-30) insulin pen 50 unit subcut BID fluoxetine 40 mg capsule 40 mg PO DAILY mirtazapine 30 mg tablet 30 mg PO HS nitroglycerin 0.4 mg tablet, sublingual 0.4 mg sublingual Q5M PRN Levemir FlexPen 100 unit/mL (3 mL) insulin pen 10 unit subcut QHS Qty: 15 0RF Follow Up/Referrals: Provider,Not a Local [Primary Care Provider] - Stand Alone Forms: [facility] Info Instructions
--- NOTE | 2023-12-31 21:29 | CRLHL7_ITS ---
For Patients: As a result of the Century Cures Act, medical imaging exams and procedure reports are released immediately into your electronic medical record. You may view this report before your referring provider. If you have questions, please contact your health care provider. INDICATION: Vomiting, diarrhea TECHNIQUE: CT Head without i.v. contrast. Coronal and sagittal reformats were obtained. COMPARISON: 09/09/2023 FINDINGS: CSF space: Mild ex vacuo dilatation of the right frontal horn is noted. Brain: Encephalomalacia is present within the right frontal lobe, frontal lobe operculum, and right basal ganglia without interval change. A small chronic lacunar infarct is present in the superior left cerebellar hemisphere and right basal ganglia. No mass-effect or midline shift is seen. Calvarium: The visualized paranasal sinuses are well aerated. The mastoid air cells are clear. The visualized orbits are grossly unremarkable. The calvarium is unremarkable in appearance with no fractures identified. IMPRESSION: 1. No evidence of acute infarction, intracranial hemorrhage, or mass-effect seen. Dictated by John Scruggs MD @ 12/31/2023 11:25:54 PM Please note that all CT scans at this facility use dose modulation, iterative reconstruction, and/or weight-based dosing when appropriate to reduce radiation dose to as low as reasonably achievable. Dictated by: John Scruggs MD @ 12/31/2023 23:26:03 (Electronically Signed)
--- NOTE | 2023-12-31 21:31 | CRLHL7_ITS ---
For Patients: As a result of the Century Cures Act, medical imaging exams and procedure reports are released immediately into your electronic medical record. You may view this report before your referring provider. If you have questions, please contact your health care provider. INDICATION: Vomiting, diarrhea TECHNIQUE: CT chest, abdomen and pelvis acquired with 83 cc of Isovue 370 IV contrast. COMPARISON: None. FINDINGS: CHEST: Cardiovascular structures: Heart size is normal. Thoracic aorta and main pulmonary artery are normal in caliber. Mediastinum and eunice: No mass or adenopathy. Lungs and pleura: 1.7 cm calcified granuloma within the right apex. The lungs are otherwise clear. No pleural effusion or pneumothorax. Chest wall and axilla: No mass or adenopathy. Bones: No suspicious bone lesions. Old left 4th rib fracture. Otherwise, unremarkable for age. ABDOMEN AND PELVIS: Liver: Unremarkable. Gallbladder and bile ducts: Status post cholecystectomy. No abnormal biliary ductal dilatation. Pancreas: Unremarkable. Spleen: Unremarkable. Adrenal glands: Unremarkable. Kidneys: Unremarkable. GI tract: Unremarkable. The appendix is not clearly visualized Vascular structures: Normal caliber abdominal aorta with mild atherosclerotic calcification. Lymph nodes: Unremarkable. Miscellaneous: Unremarkable. No free air or significant free fluid. Pelvic Organs: Mild prostatomegaly. Bones: No suspicious bone lesions. Unremarkable for age. IMPRESSION: No acute findings within the chest, abdomen, or pelvis. Please note that all CT scans at this facility use dose modulation, iterative reconstruction, and/or weight-based dosing when appropriate to reduce radiation dose to as low as reasonably achievable. Dictated by Rene Sotelo MD @ 12/31/2023 11:39:21 PM (Electronically Signed)
--- OUTSIDE RECORDS SUMMARY | 2023-12-31 21:40 | XMS_ITS | Clinical Summary ---
Author Organization [employer] [facility] [employer] [facility] Address [place], [place] [address] Care Team Providers Care Joint Terminal Attack Controller Name Role Phone Aidee Altman RN Unavailable [phone] Jono Roth MD Unavailable [phone] Nurses, Advanced Heart Failure Unavailable + Dipak Matute MD Unavailable [phone] Amanda Aguirre DO Primary Care Provider Allergies [...] mg by mouth once daily. Active Insulin [place], Disposable, 32 gauge x Indications:T ype 2 [...] be used to read blood sugars, follow supervisor finishing directions. 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 90 Capsule 1 4 12/10/19 24 Discontinu ed(*Med complete/R egimen complete/L evel of [...] Encounters Date Type Department Care Team Description 12/29/2023 Orders Only [address] [phone] Amanda Aguirre, <No scans attached> 12/29/[address] [address] Amanda Aguirre DO Follow Up (Return Call ) 12/25/[address] [address] Amanda Aguirre DO Follow Up (questions ) 12/23/2023 Nurse Triage [address] [address] Amanda Aguirre DO High Blood Sugar 12/22/[address] [address] Amanda Aguirre DO needs meds ; Follow Up (need medication) 12/22/[address] [address] Amanda Aguirre DO Medication Management 12/18/2023 Orders Only [address] [address] Amanda Aguirre, <No scans attached> 12/17/2023 10:47 AM CDT - 12/17/2023 11:59 PM CDT Hospital Encounter [facility] [address] [place] [address] Amanda Aguirre DO Faber, Kelly, PT Acquired supination of foot, left; Hemiplegia affecting nondominant side (HC); History of stroke 12/17/2023 Travel 12/10/2023 1:05 PM CDT Office Visit [address] [phone] Amanda Aguirre DO Diabetes (Pt is wondering if he can be put on Omni pod pt states pt is forgetful and isn't mindful with the insulin ) 12/10/2023 Travel 11/27/2023 Refill [facility] [address] [facility] [address] [place] [address] Jono Roth MD Refill Request (lyrica) 11/17/2023 Telephone Courage [facility] [address] [facility] [address] [place] [address] Hector Najera, PhD, LP Appointment 11/11/2023 Orders Only [facility] [address] [facility] [address] [facility] [address] [place] [address] Jonny Raza CMA <No scans attached> 11/11/2023 Orders Only [facility] [address] [facility] [address] [facility] [address] [place] [address] Jono Roth MD <No scans attached> 11/11/2023 Telephone [facility] [address] [facility] [address] [facility] [address] [place] [address] Jono Roth MD 10/30/[address] [address] Amanda Aguirre DO Refill Request (FLUoxetine (PROZAC) 40 mg capsule [...] No/) 10/29/2023 2:00 PM CDT Patient Outreach [address] [phone] Aidee Altman visual merchandising coordinator (Follow-up ) 10/29/2023 Travel 10/19/[address] [place] [address] Amanda Aguirre, DO Refill Request (Levemir flexpen, vitamin d, Divalproex Sod, mirtazapine and losartan ) 10/06/[address] [place] [address] Amanda Aguirre, Refill Request (FLUoxetine (PROZAC) 40 mg capsule, clopidogreL (PLAVIX) 75 mg tablet, atorvastatin (LIPITOR) 40 mg tablet, tamsulosin (FLOMAX) 0.4 mg capsule) 10/05/2023 2:00 PM CDT Patient Outreach [address] [place] [address] Aidee Altman RN Diabetes (Follow-up) 10/05/2023 1:50 PM CDT Orders Only [address] [place] [address] Lab, [facility] 10/05/2023 Travel from Last 3 Months [...] Description 01/19/2024 2:00 PM CDT Office Visit [facility] [address] [place] [address] Amanda Aguirre, DO [address] [place] [address] 03/23/2024 1:10 PM MARINE CARGO INSPECTOR Office Visit [facility] [address] [place] [address] Jono Roth MD [address] [place] [address] Health Maintenance Due Date Last Done Comments HIV for age 15-65 09/10/1978 Pneumococcal series for age 6-64 (2 of 2 - PCV) 07/07/2008 07/08/[address] (for lung CA) ag e 50-80 09/10/2013 Zoster (shingles) series for age 50+ (1 of 2) 09/10/2013 COVID-19 vaccine series ( - season) 2023 12/11/2020, 11/13/2020 Influenza for age [...] managed as type 2 (HC) HEMOGLOBIN A1C MONITORING (POCT) Routine 10/05/2023 2:15 PM CDT Uncontrolled type [...] 136 - 145 mmol/L 12/10/2023 1:40 PM [facility] POTASSIUM 4.0 3.5 - 5.1 mmol/L 12/10/2023 1:40 PM [facility] CHLORIDE 105 98 - 107 mmol/L 12/10/2023 1:40 PM [facility] CO2,TOTAL 25 22 - 29 mmol/L 12/10/2023 1:40 PM [facility] ANION GAP 10 5 - 18 12/10/2023 1:40 PM [facility] GLUCOSE 216(H) 70 - 99 mg/dL 12/10/2023 1:40 PM [facility] CALCIUM 9.2 8.8 - 10.2 mg/dL 12/10/2023 1:40 PM [facility] BUN 17 8 - 23 mg/dL 12/10/2023 1:40 PM [facility] CREATININE 0.76 0.70 - 1.20 mg/dL 12/10/2023 1:40 PM [facility] BUN/CREAT RATIO 22(H) 10 - 20 1:40 PM [facility] eGFR >90 >90 mL/min/1.7 3m2 12/10/2023 1:40 PM CDT [facility] Comment:As of 2021, eG FR is [...] Jono Roth MD CHEMISTRY Performing Organization Address [facility]/ZIP Co de Phone Number [facility] [address] [place] [address] * ANTI HCV (10/05/2023 2:15 PM CDT) Pathologist [facility] HEPATITIS C ANTIBODY Non-Reacti ve Non-React mark 10/06/2023 12:41 PM CDT [facility] Comment:Please note, per www [...] Aguirre DO SEND OUTS Performing Organization Address City/[facility]/ZIP Co de Phone Number [facility] [address] [place] [address], * (ABNORMAL) HEMOGLOBIN A1C MONITORING (POCT) (10/05/2023 2:15 PM CDT) Pathologist [facility] HEMOGLOBIN A1C MONITORING (POCT) 10.7(H) <=6.4 % 10/05/2023 2:35 PM CDT [facility] Blood BLOOD SPECIMEN / Unknown Venipuncture / Unknown 10/05/2023 2:15 PM CDT 10/05/2023 2:15 PM CDT [facility] - 10/05/2023 2:35 PM CDT ? [...] Anemias, Splenectomy ? Amanda Aguirre DO CHEMISTRY [facility] [address] [place] [address] * (ABNORMAL) LIPID PANEL W REFLEX MEASURED LDL (07/16/2023 2:59 PM CDT) CHOLESTEROL,TOTAL 245(H) 100 - 199 mg/dL 07/16/2023 4:03 PM [facility] Comment: Cholesterol, Total Reference Ranges Desirable <200 mg/dL Borderline 200-239 mg/dL High >=240 mg/dL TRIGLYCERIDES 237(H) <150 mg/dL 07/16/2023 4:03 PM [facility] HDL CHOLESTEROL 56 >40 mg/dL 4:03 PM [facility] NON-HDL CHOLESTEROL 189(H) <145 mg/dl 07/16/2023 4:03 PM [facility] CHOL/HDL RATIO 4.38 <4.50 07/16/2023 4:03 PM [facility] LDL CHOLESTEROL 142(H) <=130 mg/dL 07/16/2023 4:03 PM [facility] VLDL CHOLESTEROL 47(H) <=30 mg/dL 07/16/2023 4:03 PM CDT [facility] PROVIDER ORDERED STATUS RANDOM 07/16/2023 4:03 PM CDT [facility] Blood BLOOD SPECIMEN / Unknown Venipuncture / Unknown 07/16/2023 2:59 PM CDT 07/16/2023 3:02 PM CDT Amanda Aguirre DO CHEMISTRY [facility] [address] [place] [address] * COLONOSCOPY SCREENING (03/16/2014) Lincoln Hanna DO [...] Code Status Discussion: Not Discussed Care Teams Joint Terminal Attack Controller Relationship Specialty Start Date End Date Amanda Aguirre DO [address] [facility] [address] PCP - General Family Practice 07/02/23 Aidee Altman, RN [address] [place] [address] Light Armored Reconnaissance Officer 08/18/13 Jono Roth MD [address] [address] Endocrinology 04/15/17 Nurses, Advanced Heart Failure [address] [place] [address] Advanced Heart Failure/Transplant Card 12/13/20 Dipak Matute MD [address] [address] Cardiology - CHF Cardiovascular Disease 12/13/20
[2023-12-31] MEDS: ONDANSETRON 2 MG/ML inj 4 MG IVP (21:43)
[2023-12-31] MEDS: 0.9 % SODIUM CHLORIDE 1000 ml 1,000 ML IV (21:43)
[2023-12-31 21:49] LABS: HCO3 VBG 28 mmol/L (21-28); Lactate* 2.5 mmol/L (0.5-1.9); PCO2 VBG 45 mmHG (40-50); pH VBG 7.402 (7.32-7.43)
[2023-12-31 21:52] LABS: Basophils Absolute Auto 0.02 K/uL (0.00-0.30); Basophils Percent Auto 0.3 % (0.0-3.0); Eosinophils Absolute Auto 0.24 K/uL (0.00-0.50); Eosinophils Percent Auto 3.5 % (0.0-7.0); Hematocrit 46.9 % (37.0-53.0); Hemoglobin* 15.3 gm/dL (13.5-17.5); Immature Granulocytes Abs Auto 0.02 K/uL (0.00-0.30); Immature Granulocytes Pct Auto 0.3 %; Lymphocytes Absolute Auto 2.41 K/uL (0.90-2.90); Lymphocytes Percent Auto 34.7 % (20-44); Mean Corpuscular HGB Conc 33 gm/dL (32-36); Mean Corpuscular Hemoglobin 28 pg (26-34); Mean Corpuscular Volume 87 fL (80-100); Monocytes Percent Auto 9.1 % (0.0-11.0); Neutrophils Absolute Auto 3.63 K/uL (1.7-7.0); Neutrophils Percent Auto 52.1 % (42.0-72.0); Platelet Count* 160 K/uL (140-440); Red Blood Count 5.39 m/uL (4.30-5.90); White Blood Count* 6.95 K/uL (4.50-11.00)
[2023-12-31 21:53] LABS: Appearance Urine Clear (Clear); Bilirubin Urine Negative (Negative); Blood Urine Trace-lysed (Negative); Color Urine Yellow (Yellow); Glucose Urine 3+ (Negative); Ketones Urine Negative (Negative); Leukocyte Esterase Urine Negative (Negative); Nitrite Urine Negative (Negative); Protein Urine Trace (Negative); Urobilinogen Urine 0.2 (0.2-1.0)
[2023-12-31 21:58] LABS: Slide Review Reflex No
[2023-12-31 22:08] LABS: Chloride* 105 mmol/L (96-114); Potassium* 4.3 mmol/L (3.6-5.1); Sodium* 138 mmol/L (135-149)
[2023-12-31 22:10] LABS: Bilirubin Total* 0.3 mg/dL (0.1-1.5); Creatinine* 0.6 mg/dL (0.5-1.5); Est. Creatinine Clearance* 118.15; Estimated Glomerular Filt Rate 111 ml/min
[2023-12-31 22:11] LABS: Alanine Aminotransferase* 36 U/L (4-50); Alkaline Phosphatase* 92 U/L (40-150); Anion Gap 7 mEq/L (7-15); Aspartate Amino Transferase* 20 U/L (12-35); Blood Urea Nitrogen* 14 mg/dL (7-30); Carbon Dioxide* 26 mmol/L (20-32); Glucose* 318 mg/dL (60-115); Total Protein* 6.6 g/dL (6.0-8.3)
[2023-12-31 22:12] LABS: Calcium* 8.8 mg/dL (8.4-10.6)
[2023-12-31 22:14] LABS: C Reactive Protein* < 0.5 mg/dL (0.5-1.0)
[2023-12-31 22:23] LABS: RBC Urine 0-2 (0-2); WBC Urine 0-2 (0-5)
[2023-12-31 22:33] LABS: PCR FLU A Negative PCR FLU A (Negative); PCR FLU B Negative PCR FLU B (Negative); PCR RSV Negative PCR RSV (Negative); SARS PCR* Negative SARS-CoV-2 (Negative)
[2023-12-31] MEDS: INSULIN REGULAR, HUMAN 100 UNIT/ML VIAL 6 UNIT IVP (23:31)
[2024-01-01 00:10] LABS: Glucose, Point-of-Care* 208 mg/dl (60-115)
== END 2024-01-01 00:18 | disposition home or self-care (01) ==
PROVIDERS: Emergency Provider Family Medicine
DX: R10.9 Unspecified abdominal pain (principal); R11.10 Vomiting, unspecified; R19.7 Diarrhea, unspecified; R73.9 Hyperglycemia, unspecified; R53.1 Weakness
CPT/HCPCS: 36415; 70450; 71260; 74177; 80053; 81001; 82803; 82947; 83605; 85025; 86140; 87493; 87631; 94761; 96361; 96374; 96375; 99284; 99285; J1815; J2405; J7030; Q9967